=== PATIENT | male | born 1950 | race Caucasian/White ===

== ENCOUNTER 2018-06-06 07:57 | Outpatient (CLI) | payer MEDICARE, BC, SELFPAY ==
[2018-06-06 09:30] LABS: ALT 148 U/L (12-78); AST 58 U/L (15-37); Alkaline Phosphatase 58 U/L (46-116); Bilirubin, Direct 0.16 mg/dL (0.00-0.20); Bilirubin, Total 0.6 mg/dL (0.2-1.0); Total Protein 7.2 g/dL (6.4-8.2)
[2018-06-07 13:38] LABS: Tacrolimus 5.2 ng/ml
== END 2018-06-06 08:17 ==
PROVIDERS: PCP Emergency Medicine; Visit Provider Internal Medicine
DX: Z94.4 Liver transplant status (principal)
CPT/HCPCS: 36415; 80076; 80197

== ENCOUNTER 2018-06-20 08:00 | Outpatient (CLI) | payer MEDICARE, BC, SELFPAY ==
[2018-06-20 10:14] LABS: ALT 145 U/L (12-78); AST 56 U/L (15-37); Albumin 4.4 g/dL (3.4-5.0); Alkaline Phosphatase 68 U/L (46-116); Bilirubin, Direct 0.12 mg/dL (0.00-0.20); Bilirubin, Total 0.6 mg/dL (0.2-1.0); Total Protein 7.6 g/dL (6.4-8.2)
[2018-06-21 11:59] LABS: Tacrolimus 5.3 ng/ml
== END 2018-06-20 08:20 ==
PROVIDERS: PCP Emergency Medicine; Visit Provider Internal Medicine
DX: Z94.4 Liver transplant status (principal); K74.69 Other cirrhosis of liver
CPT/HCPCS: 36415; 80076; 80197

== ENCOUNTER 2018-07-04 01:26 | Outpatient (CLI) | payer MEDICARE, BC, SELFPAY ==
[2018-07-04 08:39] LABS: ALT 110 U/L (12-78); AST 43 U/L (15-37); Albumin 4.1 g/dL (3.4-5.0); Alkaline Phosphatase 61 U/L (46-116); Bilirubin, Direct 0.16 mg/dL (0.00-0.20); Bilirubin, Total 0.7 mg/dL (0.2-1.0); Total Protein 7.6 g/dL (6.4-8.2)
[2018-07-05 13:25] LABS: Tacrolimus 5.2 ng/ml
== END 2018-07-04 01:46 ==
PROVIDERS: PCP Emergency Medicine; Visit Provider Internal Medicine
DX: Z94.4 Liver transplant status (principal); Z79.899 Other long term (current) drug therapy; Z51.81 Encounter for therapeutic drug level monitoring; I10 Essential (primary) hypertension
CPT/HCPCS: 36415; 80076; 80197

== ENCOUNTER 2018-08-01 01:53 | Outpatient (CLI) | payer MEDICARE, BC, SELFPAY ==
[2018-08-01 09:09] LABS: ALT 121 U/L (12-78); AST 47 U/L (15-37); Albumin 4.2 g/dL (3.4-5.0); Alkaline Phosphatase 57 U/L (46-116); Bilirubin, Direct 0.13 mg/dL (0.00-0.20); Bilirubin, Total 0.6 mg/dL (0.2-1.0); Total Protein 7.5 g/dL (6.4-8.2)
[2018-08-02 13:38] LABS: Tacrolimus 5.4 ng/ml
== END 2018-08-01 02:13 ==
PROVIDERS: PCP Emergency Medicine; Visit Provider Internal Medicine
DX: Z94.4 Liver transplant status (principal)
CPT/HCPCS: 36415; 80076; 80197

== ENCOUNTER 2018-09-30 12:16 | Emergency (ER) | payer MEDICARE, BC, SELFPAY ==
[2018-09-30 12:22] VITALS: BP 158/77; PULSE 80; RESP 16; TEMP 36.8; O2SAT 97
--- NOTE | 2018-09-30 12:29 | DI.CT_ITS ---
SYMPTOMS/DIAGNOSIS: RT SIDED ABDOMINAL PAIN, PRIOR APPENDECTOMY AND LIVER TRANSPLANT CT SCAN OF THE ABDOMEN AND PELVIS: CT scan of the abdomen and pelvis was performed following the uneventful administration of intravenous contrast material. There are no priors for comparison. There do appear to be dependent changes in the lungs. This may represent atelectasis or pulmonary fibrosis. The liver is normal in size. No hepatic mass is seen. There is pneumobilia present in the dependent portion of the liver. There is a tiny focus of air seen in the common hepatic duct. The portal, superior mesenteric and splenic veins are patent. The pancreas and peripancreatic soft tissues are unremarkable as are the spleen and adrenal glands. The kidneys show normal and symmetric enhancement. No evidence of a solid renal mass or obstruction is appreciated. The urinary bladder is intact. The reproductive organs are unremarkable. The abdominal aorta is of normal caliber. No significant abdominal or pelvic adenopathy, ascites pneumoperitoneum is present. There is diverticulosis seen in the colon but no evidence of acute diverticulitis. The bowel shows no evidence of obstruction or inflammation. The appendix is not visualized. Note is made of bilateral fat containing inguinal hernias. Degenerative changes are seen in the spine. The patient is status post cholecystectomy. IMPRESSION: 1. Pneumobilia of uncertain clinical significance. Please correlate with prior examinations if available. 2. Colonic diverticulosis but no evidence of acute diverticulitis. The findings were discussed with Dr. Godinez of the emergency department on the date of the examination.
[2018-09-30] MEDS: HYDROmorphone 2 MG/ML VIAL 0.5 MG IVP (12:39)
--- NOTE | 2018-09-30 12:39 | W.ED.GENAD ---
Discharge Plan Disposition Patient Disposition: HOME Condition: Stable Discharge Details Chief Complaint: Abd Prob Clinical Impression: Abdominal pain Primary Care Provider: Dylan White ED Provider: Madhu Godinez Home Meds and New Rx's Prescriptions: Continued cholecalciferol (vitamin D3) 2,000 unit capsule 4,000 unit PO DAILY RF: 0 sildenafil [Viagra] 100 mg tablet 25 - 100 mg PO ONCE Qty: 7 RF: 4 pravastatin 40 mg tablet 40 mg PO DAILY RF: 0 cetirizine [Zyrtec] 10 MG tablet 10 mg PO DAILY PRNRF: 0 acetaminophen [Acetaminophen Extra Strength] 500 MG tablet 2 tab PO BID PRN RF: 0 mycophenolate mofetil 250 MG capsule 2 tab PO BID RF: 0 aspirin [Aspir-81] 81 MG tablet,delayed release (DR/EC) 81 mg PO DAILY RF: 0 magnesium oxide 400 MG tablet 2 tab PO TID RF: 0 tacrolimus [Prograf] 1 MG capsule 1 mg PO BID RF: 0 omeprazole 20 MG capsule,delayed release(DR/EC) 20 mg PO DAILY RF: 0 scdtxqyc-rxun-wbiyme-hyalur ac 1 EACH capsule 1 ea PO BID RF: 0 zinc sulfate [Zinc-220] 220 MG capsule 220 mg PO DAILY RF: 0 multivitamin [Daily Multi-Vitamin] 1 EACH tablet 1 ea PO RF: 0 Vitron-C 1 EACH tablet,delayed release (DR/EC) 1 ea PO DAILY RF: 0 cod liver oil 1 EACH capsule 1 ea PO DAILY RF: 0 flaxseed oil 1,000 MG capsule 2,400 mg PO BID RF: 0 amlodipine 10 MG tablet 10 mg PO DAILY Qty: 90 RF: 3 levothyroxine [Synthroid] 125 mcg tablet 250 mcg PO DAILY Qty: 180 RF: 3 Discharge Instructions Instructions: Abdominal Pain (ED) Additional Instructions: Your blood work and cat scan did not show any significant emergent findings. This could be from constipation Do not drive from here, someone should pick yo up to drive you home follow up with your primary care provider within a week as scheduled if you feel your pain is significantly worsening, or you have persistent vomit or fevers return to the emergency department for evaluation Medical Decision Making 67 yo male with hx of liver transplant 6 years ago, prior appendectomy, who comes in with right sided abdominal pain since Wednesday. Denies vomit, fevers, changes in bowel habits, no dysuria, no testicle pain or tenderness or swelling. On exam he has tenderness in ruq and rlq without guarding and no distention, neg menjivar's sign. Multiple potential etiologies of his pain, will obtain lab work and ct to further evaluate. Has no chest pain and reporducible pain in abdomen so doubt acs. pt feeling significantly better, labs are unremarkable, slight increase in bilirubin otherwise no changes from baseline. CT per Dr. Bradley shows intrahepatic air, no olds to compare to, otherwise unremarkable. I [place] [facility] [place] has had this air chronically per the report. He has no tenderness other than some mild rlq pain on exam without guarding. He does state he has been more constipated recently so this could be the cause of his pain. He feels well enough for d/c, advised f/u with pcp in a week and return if worsening Differential Diagnosis muscle strain, hematoma, sbo, kidney stone Imaging Data Radiologic Study: Attestation: I personally reviewed and interpreted this imaging study as follows: Imaging: CT Scan Radiologist's impression: per Dr. bradley has intrahepatic air, otherwise nothing acute Lab Data Lab results reviewed: Yes I reviewed the patient's lab results. HPI General Mode of arrival: ambulatory. Date/Time Provider Initiated Documentation: 09/30/18 12:18. Limitations to Documentation: no limitations. Information obtained by: patient. History of Present Illness 67 year old M presents to the emergency department with the chief complaint of abdominal pain, described as moderate, with intensity rated at 5. Quality is described as stabbing and aching, and is localized to the abdomen. Patient reports no radiation. Patient started experiencing this day(s) (5) and it has been constant. Other factors that worsen symptoms (movement) . Patient notes no other symptoms.. Patient did receive the following treatments prior to arrival, none Related Data Home Medications Medication Instructions Recorded Confirmed acetaminophen [Acetaminophen Extra 2 tab PO BID PRN tab-cap 01/31/13 09/30/18 Strength] cetirizine [Zyrtec] 10 mg PO DAILY PRN tab 01/31/13 09/30/18 aspirin [Aspir-81] 81 mg PO DAILY tab-cap 02/07/13 09/30/18 magnesium oxide 2 tab PO TID 02/07/13 09/30/18 mycophenolate mofetil 2 tab PO BID 02/07/13 09/30/18 tacrolimus [Prograf] 1 mg PO BID 02/07/13 09/30/18 omeprazole 20 mg PO DAILY tab-cap 06/07/13 09/30/18 hdxqxdkl-iwgk-nwwqcy-hyalur ac 1 ea PO BID 02/07/14 09/30/18 zinc sulfate [Zinc-220] 220 mg PO DAILY 02/07/14 09/30/18 multivitamin [Daily Multi-Vitamin] 1 ea PO 07/31/14 09/30/18 Vitron-C 1 ea PO DAILY 05/08/16 09/30/18 cod liver oil 1 ea PO DAILY 11/10/16 09/30/18 flaxseed oil 2,400 mg PO BID 11/10/16 09/30/18 amlodipine 10 mg PO DAILY #90 tab-cap 03/11/18 09/30/18 levothyroxine 125 mcg tablet 250 mcg PO DAILY #180 tab-cap 05/06/18 09/30/18 cholecalciferol (vitamin D3) 2,000 4,000 unit PO DAILY cap 05/18/18 09/30/18 unit capsule sildenafil 100 mg tablet 25 - 100 mg PO ONCE #7 tab 05/18/18 09/30/18 pravastatin 40 mg tablet 40 mg PO DAILY 09/30/18 09/30/18 Previous Rx's Medication Instructions Recorded amlodipine 10 mg PO DAILY #90 tab-cap 03/11/18 levothyroxine 125 mcg tablet 250 mcg PO DAILY #180 tab-cap 05/06/18 sildenafil 100 mg tablet 25 - 100 mg PO ONCE #7 tab 05/18/18 Allergies Allergy/AdvReac Type Severity Reaction Status Date / Time codeine Allergy Severe THROAT Verified 09/30/18 11:38 SWELLED SHUT General Stated Complaint: Abd Prob MARK: 3 Review of Systems Review of Systems All systems reviewed & are unremarkable except as noted in HPI and below Constitutional Denies chills, Denies fever(s) and Denies weakness Eyes Denies loss of vision ENT Denies change in voice Cardiovascular Denies chest pain and Denies dyspnea Respiratory Denies cough and Denies dyspnea Gastrointestinal Denies vomiting Genitourinary Denies dysuria Musculoskeletal Denies joint swelling Integumentary/Breasts Denies rash Neurologic Denies loss of vision and Denies weakness Psychiatric Denies depression ON LICENSE OF [facility] Medical History Sciatica (Acute) Pulmonary scarring (Acute 01/08/17) Obstructive sleep apnea syndrome (Acute) Obesity (Acute) Impaired fasting glucose (Acute) Hypothyroidism (Acute) Gastroesophageal reflux disease (Acute) Diverticulosis of colon without diverticulitis (Acute) Cirrhosis of liver (Acute) Chest pain (Acute) Bleeding esophageal varices (Acute) Surgical History Status post total knee replacement (Acute 01/08/16) Liver transplant status (Acute) Appendectomy (~1991) Colonoscopy - MAC LIVER TRANSPLANT (~2012) Family History Mother Neoplasm Father Aneurysm Social History Smoking and Tabacco status: Never Exam Const General: no acute distress Orientation: alert [facility] Head: normal to inspection Ears: external ears normal General nose exam: external nose normal Mouth: moist mucous membranes Eyes General: appearance normal, both eyes and all related structures Neck Neck: normal visual inspection Resp Effort & Inspection: normal respiratory effort and able to speak in complete sentences Cardio Rate: regular rate GI Palpation: soft Skin General skin exam: no rashes or lesions noted Neuro General: alert and oriented x3 Extrem General: normal to inspection Psych Mental Status: mental status grossly normal Course Vital Signs Temperature 36.8 C 09/30/18 12:22 Pulse 80 09/30/18 12:22 Respiratory Rate 16 09/30/18 12:22 Blood Pressure 158/77 H 09/30/18 12:22 Pulse Oximetry 97 09/30/18 12:22 Temperature 36.8 C 09/30/18 12:22 Temperature Source Skin 09/30/18 12:22 Pulse 80 09/30/18 12:22 Respiratory Rate 16 09/30/18 12:22 Respiratory Effort Non-Labored 09/30/18 12:31 Blood Pressure 158/77 H 09/30/18 12:22 Blood Pressure Position Sitting 09/30/18 12:22 Pulse Oximetry 97 09/30/18 12:22 Oxygen Delivery Method Room Air 09/30/18 12:22 Oxygen Flow Rate 0 09/30/18 12:22 Pain Level 10 09/30/18 12:22
--- NOTE | 2018-09-30 12:42 | ED.GENADUL_ITS ---
Discharge Plan Disposition Patient Disposition: HOME Condition: Stable Discharge Details Chief Complaint: Abd Prob Clinical Impression: Abdominal pain Primary Care Provider: Dylan Whtie ED Provider: Madhu Godinez Home Meds and New Rx's Prescriptions: Continued cholecalciferol (vitamin D3) 2,000 unit capsule 4,000 unit PO DAILY RF: 0 sildenafil [Viagra] 100 mg tablet 25 - 100 mg PO ONCE Qty: 7 RF: 4 pravastatin 40 mg tablet 40 mg PO DAILY RF: 0 cetirizine [Zyrtec] 10 MG tablet 10 mg PO DAILY PRNRF: 0 acetaminophen [Acetaminophen Extra Strength] 500 MG tablet 2 tab PO BID PRN RF: 0 mycophenolate mofetil 250 MG capsule 2 tab PO BID RF: 0 aspirin [Aspir-81] 81 MG tablet,delayed release (DR/EC) 81 mg PO DAILY RF: 0 magnesium oxide 400 MG tablet 2 tab PO TID RF: 0 tacrolimus [Prograf] 1 MG capsule 1 mg PO BID RF: 0 omeprazole 20 MG capsule,delayed release(DR/EC) 20 mg PO DAILY RF: 0 rqdxyhts-rius-jcowap-hyalur ac 1 EACH capsule 1 ea PO BID RF: 0 zinc sulfate [Zinc-220] 220 MG capsule 220 mg PO DAILY RF: 0 multivitamin [Daily Multi-Vitamin] 1 EACH tablet 1 ea PO RF: 0 Vitron-C 1 EACH tablet,delayed release (DR/EC) 1 ea PO DAILY RF: 0 cod liver oil 1 EACH capsule 1 ea PO DAILY RF: 0 flaxseed oil 1,000 MG capsule 2,400 mg PO BID RF: 0 amlodipine 10 MG tablet 10 mg PO DAILY Qty: 90 RF: 3 levothyroxine [Synthroid] 125 mcg tablet 250 mcg PO DAILY Qty: 180 RF: 3 Discharge Instructions Instructions: Abdominal Pain (ED) Additional Instructions: Your blood work and cat scan did not show any significant emergent findings. This could be from constipation Do not drive from here, someone should pick yo up to drive you home follow up with your primary care provider within a week as scheduled if you feel your pain is significantly worsening, or you have persistent vomit or fevers return to the emergency department for evaluation Medical Decision Making 67 yo male with hx of liver transplant 6 years ago, prior appendectomy, who comes in with right sided abdominal pain since Wednesday. Denies vomit, fevers, changes in bowel habits, no dysuria, no testicle pain or tenderness or swelling. On exam he has tenderness in ruq and rlq without guarding and no distention, neg menjivar's sign. Multiple potential etiologies of his pain, will obtain lab work and ct to further evaluate. Has no chest pain and reporducible pain in abdomen so doubt acs. pt feeling significantly better, labs are unremarkable, slight increase in bilirubin otherwise no changes from baseline. CT per Dr. Bradley shows intrahepatic air, no olds to compare to, otherwise unremarkable. [place] [facility] [place] had this air chronically per the report. He has no tenderness other than some mild rlq pain on exam without guarding. He does state he has been more constipated recently so this could be the cause of his pain. He feels well enough for d/c, advised f/u with pcp in a week and return if worsening Differential Diagnosis muscle strain, hematoma, sbo, kidney stone Imaging Data Radiologic Study: Attestation: I personally reviewed and interpreted this imaging study as follows: Imaging: CT Scan Radiologist's impression: per Dr. bradley has intrahepatic air, otherwise nothing acute Lab Data Lab results reviewed: Yes I reviewed the patient's lab results. HPI General Mode of arrival: ambulatory . Date/Time Provider Initiated Documentation: 09/30/18 12:18 . Limitations to Documentation: no limitations . Information obtained by: patient . History of Present Illness 67 year old M presents to the emergency department with the chief complaint of abdominal pain, described as moderate, with intensity rated at 5. Quality is described as stabbing and aching, and is localized to the abdomen. Patient reports no radiation. Patient started experiencing this day(s) (5) and it has been constant. Other factors that worsen symptoms (movement) . Patient notes no other symptoms.. Patient did receive the following treatments prior to arrival, none Related Data Home Medications Medication Instructions Recorded Confirmed acetaminophen [Acetaminophen Extra 2 tab PO BID PRN tab-cap 01/31/13 09/30/18 Strength] cetirizine [Zyrtec] 10 mg PO DAILY PRN tab 01/31/13 09/30/18 aspirin [Aspir-81] 81 mg PO DAILY tab-cap 02/07/13 09/30/18 magnesium oxide 2 tab PO TID 02/07/13 09/30/18 mycophenolate mofetil 2 tab PO BID 02/07/13 09/30/18 tacrolimus [Prograf] 1 mg PO BID 02/07/13 09/30/18 omeprazole 20 mg PO DAILY tab-cap 06/07/13 09/30/18 bwuzxiva-bxqe-lifnjb-hyalur ac 1 ea PO BID 02/07/14 09/30/18 zinc sulfate [Zinc-220] 220 mg PO DAILY 02/07/14 09/30/18 multivitamin [Daily Multi-Vitamin] 1 ea PO 07/31/14 09/30/18 Vitron-C 1 ea PO DAILY 05/08/16 09/30/18 cod liver oil 1 ea PO DAILY 11/10/16 09/30/18 flaxseed oil 2,400 mg PO BID 11/10/16 09/30/18 amlodipine 10 mg PO DAILY #90 tab-cap 03/11/18 09/30/18 levothyroxine 125 mcg tablet 250 mcg PO DAILY #180 tab-cap 05/06/18 09/30/18 cholecalciferol (vitamin D3) 2,000 4,000 unit PO DAILY cap 05/18/18 09/30/18 unit capsule sildenafil 100 mg tablet 25 - 100 mg PO ONCE #7 tab 05/18/18 09/30/18 pravastatin 40 mg tablet 40 mg PO DAILY 09/30/18 09/30/18 Previous Rx's Medication Instructions Recorded amlodipine 10 mg PO DAILY #90 tab-cap 03/11/18 levothyroxine 125 mcg tablet 250 mcg PO DAILY #180 tab-cap 05/06/18 sildenafil 100 mg tablet 25 - 100 mg PO ONCE #7 tab 05/18/18 Allergies Allergy/AdvReac Type Severity Reaction Status Date / Time codeine Allergy Severe THROAT Verified 09/30/18 11:38 SWELLED SHUT General Stated Complaint: Abd Prob MARK: 3 Review of Systems Review of Systems All systems reviewed & are unremarkable except as noted in HPI and below Constitutional Denies chills, Denies fever(s) and Denies weakness Eyes Denies loss of vision ENT Denies change in voice Cardiovascular Denies chest pain and Denies dyspnea Respiratory Denies cough and Denies dyspnea Gastrointestinal Denies vomiting Genitourinary Denies dysuria Musculoskeletal Denies joint swelling Integumentary/Breasts Denies rash Neurologic Denies loss of vision and Denies weakness Psychiatric Denies depression [facility] Medical History Sciatica (Acute) Pulmonary scarring (Acute 01/08/17) Obstructive sleep apnea syndrome (Acute) Obesity (Acute) Impaired fasting glucose (Acute) Hypothyroidism (Acute) Gastroesophageal reflux disease (Acute) Diverticulosis of colon without diverticulitis (Acute) Cirrhosis of liver (Acute) Chest pain (Acute) Bleeding esophageal varices (Acute) Surgical History Status post total knee replacement (Acute 01/08/16) Liver transplant status (Acute) Appendectomy (~1991) Colonoscopy - MAC LIVER TRANSPLANT (~2012) Family History Mother Neoplasm Father Aneurysm Social History Smoking and Tabacco status: Never Exam Const General: no acute distress Orientation: alert [facility] Head: normal to inspection Ears: external ears normal General nose exam: external nose normal Mouth: moist mucous membranes Eyes General: appearance normal, both eyes and all related structures Neck Neck: normal visual inspection Resp Effort & Inspection: normal respiratory effort and able to speak in complete sentences Cardio Rate: regular rate GI Palpation: soft Skin General skin exam: no rashes or lesions noted Neuro General: alert and oriented x3 Extrem General: normal to inspection Psych Mental Status: mental status grossly normal Course Vital Signs Temperature 36.8 C 09/30/18 12:22 Pulse 80 09/30/18 12:22 Respiratory Rate 16 09/30/18 12:22 Blood Pressure 158/77 H 09/30/18 12:22 Pulse Oximetry 97 09/30/18 12:22 Temperature 36.8 C 09/30/18 12:22 Temperature Source Skin 09/30/18 12:22 Pulse 80 09/30/18 12:22 Respiratory Rate 16 09/30/18 12:22 Respiratory Effort Non-Labored 09/30/18 12:31 Blood Pressure 158/77 H 09/30/18 12:22 Blood Pressure Position Sitting 09/30/18 12:22 Pulse Oximetry 97 09/30/18 12:22 Oxygen Delivery Method Room Air 09/30/18 12:22 Oxygen Flow Rate 0 09/30/18 12:22 Pain Level 10 09/30/18 12:22
[2018-09-30 12:47] LABS: Lactate-non-spesis 1.1 mmol/l (0.6-1.4)
[2018-09-30 12:51] LABS: Abs Immature Grans 0.02 k/cumm (0.0-0.09); Absolute Basophil Count 0.03 k/cumm (0.0-0.2); Absolute Eosinophil Count 0.13 k/cumm (0.0-0.7); Absolute Lymphocyte Count 1.65 k/cumm (1.2-3.4); Absolute Monocyte Count 0.68 k/cumm (0.11-0.7); Absolute Neutrophil Count 4.25 k/cumm (1.2-6.7); Basophils % 0.4; Eosinophils % 1.9; HGB 15.4 g/dL (13.5-17.5); Immature Grans % 0.3; Lymphocytes % 24.4; Mean Corp. HGB Concentration 34.2 g/dL (32.0-36.0); Mean Corpuscular Hemoglobin 28.1 pg (27.0-33.0); Mean Corpuscular Volume 82.1 fL (80-95); Mean Platelet Volume 10.1 fL (8.0-11.0); Monocytes % 10.1; Neutrophils % 62.9; Platelet Count 144 x1000/uL (130-400); RBC 5.48 m/cumm (4.50-6.00); RBC Distribution Width 13.9 % (11.8-14.1); White Blood Cell Count 6.76 k/cumm (4.4-10.8)
[2018-09-30] MEDS: Omnipaque 350 MG/ML 100 ML BTL IJ (12:59)
[2018-09-30 13:01] LABS: PTT Activated 24.8 sec (21.0-31.4); Prothrombin Time 10.2 sec (9.3-11.0)
[2018-09-30 13:15] LABS: ALT 123 U/L (12-78); AST 48 U/L (15-37); Albumin 4.5 g/dL (3.4-5.0); Alkaline Phosphatase 68 U/L (46-116); Anion Gap 12.6 mmol/L (3-11); BUN 16 mg/dL (7-18); Bilirubin, Direct 0.24 mg/dL (0.00-0.20); Bilirubin, Total 0.9 mg/dL (0.2-1.0); CO2 26.4 mmol/L (21.0-32.0); CREATININE 1.09 mg/dL (0.70-1.30); Calcium 8.9 mg/dL (8.5-10.1); Chloride 101 mmol/L (98-107); Glucose 121 mg/dL (70-100); Lipase 62 U/L (73-393); Potassium 3.8 mmol/L (3.5-5.1); Sodium 140 mmol/L (136-145); Total Protein 8.8 g/dL (6.4-8.2)
[2018-09-30 13:43] VITALS: BP 136/66; PULSE 71; RESP 15; TEMP 37; O2SAT 98
[2018-09-30 13:50] VITALS: BP 136/66; PULSE 71; RESP 15; TEMP 37; O2SAT 98
== END 2018-09-30 13:51 | disposition home or self-care (01) ==
PROVIDERS: Emergency Provider Emergency Medicine; PCP Emergency Medicine
DX: R10.11 Right upper quadrant pain (principal); R10.31 Right lower quadrant pain; Z94.4 Liver transplant status
CPT/HCPCS: 36415; 80053; 80076; 83690; 96374; 99285; 74177; 83605; 83735; 85025; 85610; 85730; 99284; J3490

== ENCOUNTER 2019-07-24 00:16 | Outpatient (CLI) | payer MEDICARE, BC, SELFPAY ==
[2019-07-24 09:35] LABS: ALT 64 U/L (16-63); AST 29 U/L (15-37); Albumin 4.2 g/dL (3.4-5.0); Alkaline Phosphatase 52 U/L (46-116); Anion Gap 10.6 mmol/L (3-11); BUN 19 mg/dL (7-18); Bilirubin, Total 0.6 mg/dL (0.2-1.0); CO2 27.4 mmol/L (21.0-32.0); CREATININE 1.18 mg/dL (0.70-1.30); Calcium 8.5 mg/dL (8.5-10.1); Chloride 105 mmol/L (98-107); Glucose 120 mg/dL (74-106); Potassium 3.9 mmol/L (3.5-5.1); Sodium 143 mmol/L (136-145); Total Protein 7.3 g/dL (6.4-8.2)
[2019-07-24 10:13] LABS: Bilirubin, Direct 0.14 mg/dL (0.00-0.20)
[2019-07-25 15:28] LABS: Tacrolimus 3.1 ng/mL (See Note)
== END 2019-07-24 00:36 ==
PROVIDERS: PCP Emergency Medicine; Visit Provider Internal Medicine
DX: Z94.4 Liver transplant status (principal); Z51.81 Encounter for therapeutic drug level monitoring
CPT/HCPCS: 36415; 80053; 80076; 80197

== ENCOUNTER 2019-08-07 01:27 | Outpatient (CLI) | payer MEDICARE, BC, SELFPAY ==
[2019-08-07 08:36] LABS: ALT 62 U/L (16-63); AST 31 U/L (15-37); Albumin 4.4 g/dL (3.4-5.0); Alkaline Phosphatase 52 U/L (46-116); Anion Gap 7.9 mmol/L (3-11); BUN 18 mg/dL (7-18); Bilirubin, Direct 0.19 mg/dL (0.00-0.20); Bilirubin, Total 0.8 mg/dL (0.2-1.0); CO2 30.1 mmol/L (21.0-32.0); CREATININE 1.12 mg/dL (0.70-1.30); Calcium 8.9 mg/dL (8.5-10.1); Chloride 104 mmol/L (98-107); Glucose 112 mg/dL (74-106); Sodium 142 mmol/L (136-145); Total Protein 7.6 g/dL (6.4-8.2)
[2019-08-08 13:23] LABS: Tacrolimus 2.7 ng/mL (See Note)
== END 2019-08-07 01:47 ==
PROVIDERS: PCP Emergency Medicine; Visit Provider Internal Medicine
DX: Z94.4 Liver transplant status (principal); Z51.81 Encounter for therapeutic drug level monitoring
CPT/HCPCS: 36415; 80053; 80076; 80197

== ENCOUNTER 2019-09-04 01:13 | Outpatient (CLI) | payer MEDICARE, BC, SELFPAY ==
[2019-09-04 08:08] LABS: Abs Immature Grans 0.02 k/cumm (0.0-0.09); Absolute Basophil Count 0.05 k/cumm (0.0-0.2); Absolute Eosinophil Count 0.19 k/cumm (0.0-0.7); Absolute Lymphocyte Count 2.03 k/cumm (1.2-3.4); Absolute Monocyte Count 0.59 k/cumm (0.11-0.7); Absolute Neutrophil Count 3.05 k/cumm (1.2-6.7); Basophils % 0.8; Eosinophils % 3.2; HCT 44.9 % (40.0-50.0); HGB 15.4 g/dL (13.5-17.5); Immature Grans % 0.3 %; Lymphocytes % 34.2; Mean Corp. HGB Concentration 34.3 g/dL (32.0-36.0); Mean Corpuscular Hemoglobin 28.5 pg (27.0-33.0); Mean Corpuscular Volume 83.1 fL (80-95); Monocytes % 9.9; Neutrophils % 51.6; Platelet Count 131 x1000/uL (130-400); RBC Distribution Width 14.1 % (11.8-14.1); White Blood Cell Count 5.93 k/cumm (4.4-10.8)
[2019-09-04 09:31] LABS: ALT 66 U/L (16-63); AST 36 U/L (15-37); Albumin 4.3 g/dL (3.4-5.0); Alkaline Phosphatase 55 U/L (46-116); Anion Gap 10.8 mmol/L (3-11); BUN 16 mg/dL (7-18); Bilirubin, Direct 0.21 mg/dL (0.00-0.20); Bilirubin, Total 0.9 mg/dL (0.2-1.0); CO2 27.2 mmol/L (21.0-32.0); CREATININE 1.06 mg/dL (0.70-1.30); Calcium 8.8 mg/dL (8.5-10.1); Chloride 104 mmol/L (98-107); Glucose 100 mg/dL (74-106); Magnesium 2.1 mg/dL (1.8-2.4); PHOSPHORUS 3.2 mg/dL (2.6-4.7); Sodium 142 mmol/L (136-145); Total Protein 7.4 g/dL (6.4-8.2)
[2019-09-05 13:30] LABS: Tacrolimus 4.3 ng/mL (See Note)
== END 2019-09-04 01:33 ==
PROVIDERS: PCP Emergency Medicine; Visit Provider Internal Medicine
DX: Z94.4 Liver transplant status (principal); Z79.899 Other long term (current) drug therapy; Z51.81 Encounter for therapeutic drug level monitoring
CPT/HCPCS: 36415; 80053; 80197; 82248; 83735; 84100; 85025

== ENCOUNTER 2019-09-18 02:33 | Outpatient (CLI) | payer MEDICARE, BC, SELFPAY ==
[2019-09-18 08:28] LABS: Abs Immature Grans 0.02 k/cumm (0.0-0.09); Absolute Basophil Count 0.03 k/cumm (0.0-0.2); Absolute Eosinophil Count 0.22 k/cumm (0.0-0.7); Absolute Lymphocyte Count 2.16 k/cumm (1.2-3.4); Absolute Monocyte Count 0.61 k/cumm (0.11-0.7); Absolute Neutrophil Count 3.56 k/cumm (1.2-6.7); Basophils % 0.5; Eosinophils % 3.3; HCT 42.8 % (40.0-50.0); HGB 14.7 g/dL (13.5-17.5); Immature Grans % 0.3 %; Lymphocytes % 32.7; Mean Corp. HGB Concentration 34.3 g/dL (32.0-36.0); Mean Corpuscular Hemoglobin 28.5 pg (27.0-33.0); Mean Corpuscular Volume 82.9 fL (80-95); Mean Platelet Volume 10.1 fL (8.0-11.0); Monocytes % 9.2; Platelet Count 129 x1000/uL (130-400); RBC 5.16 m/cumm (4.50-6.00); RBC Distribution Width 13.9 % (11.8-14.1)
[2019-09-18 09:31] LABS: ALT 71 U/L (16-63); AST 34 U/L (15-37); Albumin 4.3 g/dL (3.4-5.0); Alkaline Phosphatase 54 U/L (46-116); Anion Gap 10.2 mmol/L (3-11); BUN 23 mg/dL (7-18); Bilirubin, Direct 0.19 mg/dL (0.00-0.20); Bilirubin, Total 0.7 mg/dL (0.2-1.0); CO2 28.8 mmol/L (21.0-32.0); CREATININE 1.25 mg/dL (0.70-1.30); Calcium 8.6 mg/dL (8.5-10.1); Chloride 103 mmol/L (98-107); Glucose 111 mg/dL (74-106); Magnesium 1.8 mg/dL (1.8-2.4); PHOSPHORUS 3.4 mg/dL (2.6-4.7); Potassium 4.3 mmol/L (3.5-5.1); Sodium 142 mmol/L (136-145); Total Protein 7.4 g/dL (6.4-8.2)
[2019-09-19 12:24] LABS: Tacrolimus 4.4 ng/mL (See Note)
== END 2019-09-18 02:53 ==
PROVIDERS: PCP Emergency Medicine; Visit Provider Internal Medicine
DX: Z94.4 Liver transplant status (principal); Z79.899 Other long term (current) drug therapy
CPT/HCPCS: 36415; 80053; 80197; 82248; 83735; 84100; 85025

== ENCOUNTER 2019-09-25 01:56 | Outpatient (CLI) | payer MEDICARE, BC, SELFPAY ==
[2019-09-25 08:16] LABS: Abs Immature Grans 0.02 k/cumm (0.0-0.09); Absolute Basophil Count 0.02 k/cumm (0.0-0.2); Absolute Eosinophil Count 0.25 k/cumm (0.0-0.7); Absolute Lymphocyte Count 2.07 k/cumm (1.2-3.4); Absolute Monocyte Count 0.52 k/cumm (0.11-0.7); Absolute Neutrophil Count 2.66 k/cumm (1.2-6.7); Basophils % 0.4; Eosinophils % 4.5; HCT 42.4 % (40.0-50.0); HGB 14.5 g/dL (13.5-17.5); Immature Grans % 0.4 %; Lymphocytes % 37.4; Mean Corp. HGB Concentration 34.2 g/dL (32.0-36.0); Mean Corpuscular Hemoglobin 28.8 pg (27.0-33.0); Mean Corpuscular Volume 84.1 fL (80-95); Mean Platelet Volume 10.3 fL (8.0-11.0); Monocytes % 9.4; Neutrophils % 47.9; Platelet Count 125 x1000/uL (130-400); RBC 5.04 m/cumm (4.50-6.00); RBC Distribution Width 14.2 % (11.8-14.1); White Blood Cell Count 5.54 k/cumm (4.4-10.8)
[2019-09-25 09:27] LABS: ALT 80 U/L (16-63); AST 39 U/L (15-37); Albumin 4.3 g/dL (3.4-5.0); Alkaline Phosphatase 52 U/L (46-116); Anion Gap 9.7 mmol/L (3-11); BUN 22 mg/dL (7-18); Bilirubin, Direct 0.19 mg/dL (0.00-0.20); Bilirubin, Total 0.8 mg/dL (0.2-1.0); CO2 27.3 mmol/L (21.0-32.0); CREATININE 1.18 mg/dL (0.70-1.30); Calcium 8.5 mg/dL (8.5-10.1); Chloride 105 mmol/L (98-107); Glucose 106 mg/dL (74-106); Magnesium 1.9 mg/dL (1.8-2.4); PHOSPHORUS 3.3 mg/dL (2.6-4.7); Sodium 142 mmol/L (136-145); Total Protein 7.4 g/dL (6.4-8.2)
[2019-09-26 13:13] LABS: Tacrolimus 4.1 ng/mL (See Note)
== END 2019-09-25 02:16 ==
PROVIDERS: PCP Emergency Medicine; Visit Provider Transplant Surgery
DX: Z94.4 Liver transplant status (principal); Z79.899 Other long term (current) drug therapy
CPT/HCPCS: 36415; 80053; 80197; 82248; 83735; 84100; 85025

== ENCOUNTER 2019-10-02 03:27 | Outpatient (CLI) | payer MEDICARE, BC, SELFPAY ==
[2019-10-02 08:10] LABS: Abs Immature Grans 0.02 k/cumm (0.0-0.09); Absolute Basophil Count 0.04 k/cumm (0.0-0.2); Absolute Eosinophil Count 0.31 k/cumm (0.0-0.7); Absolute Lymphocyte Count 2.59 k/cumm (1.2-3.4); Absolute Monocyte Count 0.58 k/cumm (0.11-0.7); Absolute Neutrophil Count 3.08 k/cumm (1.2-6.7); Basophils % 0.6; Eosinophils % 4.7; HCT 43.6 % (40.0-50.0); HGB 14.9 g/dL (13.5-17.5); Immature Grans % 0.3 %; Lymphocytes % 39.1; Mean Corp. HGB Concentration 34.2 g/dL (32.0-36.0); Mean Corpuscular Hemoglobin 28.6 pg (27.0-33.0); Mean Corpuscular Volume 83.7 fL (80-95); Mean Platelet Volume 10.1 fL (8.0-11.0); Monocytes % 8.8; Neutrophils % 46.5; Platelet Count 137 x1000/uL (130-400); RBC 5.21 m/cumm (4.50-6.00); RBC Distribution Width 14.2 % (11.8-14.1); White Blood Cell Count 6.62 k/cumm (4.4-10.8)
[2019-10-02 09:23] LABS: ALT 78 U/L (16-63); AST 36 U/L (15-37); Albumin 4.3 g/dL (3.4-5.0); Alkaline Phosphatase 51 U/L (46-116); Anion Gap 10.4 mmol/L (3-11); BUN 19 mg/dL (7-18); Bilirubin, Direct 0.13 mg/dL (0.00-0.20); Bilirubin, Total 0.6 mg/dL (0.2-1.0); CO2 27.6 mmol/L (21.0-32.0); CREATININE 1.25 mg/dL (0.70-1.30); Calcium 8.5 mg/dL (8.5-10.1); Chloride 104 mmol/L (98-107); Glucose 113 mg/dL (74-106); PHOSPHORUS 3.3 mg/dL (2.6-4.7); Potassium 4.1 mmol/L (3.5-5.1); Sodium 142 mmol/L (136-145); Total Protein 7.4 g/dL (6.4-8.2)
[2019-10-03 12:08] LABS: Tacrolimus 3.4 ng/mL (See Note)
== END 2019-10-02 03:47 ==
PROVIDERS: PCP Emergency Medicine; Visit Provider Transplant Surgery
DX: Z94.4 Liver transplant status (principal); Z79.899 Other long term (current) drug therapy
CPT/HCPCS: 36415; 80053; 80197; 82248; 83735; 84100; 85025

== ENCOUNTER 2019-10-09 01:40 | Outpatient (CLI) | payer MEDICARE, BC, SELFPAY ==
[2019-10-09 08:14] LABS: Abs Immature Grans 0.01 k/cumm (0.0-0.09); Absolute Basophil Count 0.03 k/cumm (0.0-0.2); Absolute Eosinophil Count 0.22 k/cumm (0.0-0.7); Absolute Monocyte Count 0.54 k/cumm (0.11-0.7); Absolute Neutrophil Count 2.94 k/cumm (1.2-6.7); Basophils % 0.5; Eosinophils % 3.8; HCT 42.5 % (40.0-50.0); HGB 14.9 g/dL (13.5-17.5); Immature Grans % 0.2 %; Lymphocytes % 34.8; Mean Corp. HGB Concentration 35.1 g/dL (32.0-36.0); Mean Corpuscular Hemoglobin 29.2 pg (27.0-33.0); Mean Corpuscular Volume 83.2 fL (80-95); Mean Platelet Volume 9.9 fL (8.0-11.0); Monocytes % 9.4; Neutrophils % 51.3; Platelet Count 131 x1000/uL (130-400); RBC 5.11 m/cumm (4.50-6.00); RBC Distribution Width 14.1 % (11.8-14.1); White Blood Cell Count 5.74 k/cumm (4.4-10.8)
[2019-10-09 09:08] LABS: ALT 72 U/L (16-63); AST 36 U/L (15-37); Albumin 4.4 g/dL (3.4-5.0); Alkaline Phosphatase 50 U/L (46-116); Anion Gap 8.4 mmol/L (3-11); BUN 19 mg/dL (7-18); Bilirubin, Total 0.7 mg/dL (0.2-1.0); CO2 28.6 mmol/L (21.0-32.0); CREATININE 1.16 mg/dL (0.70-1.30); Calcium 8.7 mg/dL (8.5-10.1); Chloride 105 mmol/L (98-107); Glucose 111 mg/dL (74-106); Sodium 142 mmol/L (136-145); Total Protein 7.5 g/dL (6.4-8.2)
[2019-10-10 18:04] LABS: Tacrolimus 3.2 ng/mL (See Note)
== END 2019-10-09 02:00 ==
PROVIDERS: PCP Emergency Medicine; Visit Provider Internal Medicine
DX: Z94.4 Liver transplant status (principal)
CPT/HCPCS: 36415; 80053; 80197; 85025

== ENCOUNTER 2019-10-16 02:04 | Outpatient (CLI) | payer MEDICARE, BC, SELFPAY ==
[2019-10-16 08:16] LABS: Abs Immature Grans 0.01 k/cumm (0.0-0.09); Absolute Basophil Count 0.05 k/cumm (0.0-0.2); Absolute Eosinophil Count 0.29 k/cumm (0.0-0.7); Absolute Lymphocyte Count 2.28 k/cumm (1.2-3.4); Absolute Monocyte Count 0.64 k/cumm (0.11-0.7); Absolute Neutrophil Count 3.04 k/cumm (1.2-6.7); Basophils % 0.8; Eosinophils % 4.6; HCT 43.7 % (40.0-50.0); HGB 15.1 g/dL (13.5-17.5); Immature Grans % 0.2 %; Lymphocytes % 36.1; Mean Corp. HGB Concentration 34.6 g/dL (32.0-36.0); Mean Corpuscular Hemoglobin 28.8 pg (27.0-33.0); Mean Corpuscular Volume 83.4 fL (80-95); Mean Platelet Volume 9.9 fL (8.0-11.0); Monocytes % 10.1; Neutrophils % 48.2; Platelet Count 136 x1000/uL (130-400); RBC 5.24 m/cumm (4.50-6.00); White Blood Cell Count 6.31 k/cumm (4.4-10.8)
[2019-10-16 09:19] LABS: ALT 75 U/L (16-63); AST 35 U/L (15-37); Albumin 4.4 g/dL (3.4-5.0); Alkaline Phosphatase 52 U/L (46-116); Anion Gap 12.5 mmol/L (3-11); BUN 22 mg/dL (7-18); Bilirubin, Total 0.9 mg/dL (0.2-1.0); CO2 25.5 mmol/L (21.0-32.0); Calcium 8.4 mg/dL (8.5-10.1); Chloride 104 mmol/L (98-107); Estimated GFR 59.86 (mL/min/1.73m2); Glucose 103 mg/dL (74-106); Magnesium 2.1 mg/dL (1.8-2.4); PHOSPHORUS 3.3 mg/dL (2.6-4.7); Potassium 3.9 mmol/L (3.5-5.1); Sodium 142 mmol/L (136-145); Total Protein 7.5 g/dL (6.4-8.2)
[2019-10-17 13:33] LABS: Tacrolimus 3.6 ng/mL (See Note)
== END 2019-10-16 02:24 ==
PROVIDERS: PCP Emergency Medicine; Visit Provider Internal Medicine
DX: Z94.4 Liver transplant status (principal); Z79.899 Other long term (current) drug therapy
CPT/HCPCS: 36415; 80053; 80197; 82248; 83735; 84100; 85025

== ENCOUNTER 2019-11-20 02:00 | Outpatient (CLI) | payer MEDICARE, BC, SELFPAY ==
[2019-11-20 07:54] LABS: Abs Immature Grans 0.01 k/cumm (0.0-0.09); Absolute Basophil Count 0.02 k/cumm (0.0-0.2); Absolute Eosinophil Count 0.54 k/cumm (0.0-0.7); Absolute Lymphocyte Count 1.92 k/cumm (1.2-3.4); Absolute Monocyte Count 0.62 k/cumm (0.11-0.7); Absolute Neutrophil Count 2.64 k/cumm (1.2-6.7); Basophils % 0.3; Eosinophils % 9.4; HCT 40.4 % (40.0-50.0); HGB 13.9 g/dL (13.5-17.5); Immature Grans % 0.2 %; Lymphocytes % 33.4; Mean Corp. HGB Concentration 34.4 g/dL (32.0-36.0); Mean Corpuscular Hemoglobin 28.8 pg (27.0-33.0); Mean Corpuscular Volume 83.6 fL (80-95); Mean Platelet Volume 9.7 fL (8.0-11.0); Monocytes % 10.8; Neutrophils % 45.9; Platelet Count 137 x1000/uL (130-400); RBC 4.83 m/cumm (4.50-6.00); RBC Distribution Width 13.8 % (11.8-14.1); White Blood Cell Count 5.75 k/cumm (4.4-10.8)
[2019-11-20 08:44] LABS: Bilirubin, Direct 0.23 mg/dL (0.00-0.20); Magnesium 1.9 mg/dL (1.8-2.4); PHOSPHORUS 3.7 mg/dL (2.6-4.7)
[2019-11-20 08:46] LABS: ALT 58 U/L (16-63); AST 32 U/L (15-37); Alkaline Phosphatase 55 U/L (46-116); Anion Gap 10.9 mmol/L (3-11); BUN 17 mg/dL (7-18); Bilirubin, Total 0.9 mg/dL (0.2-1.0); CO2 26.1 mmol/L (21.0-32.0); CREATININE 1.04 mg/dL (0.70-1.30); Calcium 8.5 mg/dL (8.5-10.1); Chloride 104 mmol/L (98-107); Glucose 105 mg/dL (74-106); Potassium 3.7 mmol/L (3.5-5.1); Sodium 141 mmol/L (136-145); Total Protein 7.2 g/dL (6.4-8.2)
[2019-11-21 13:08] LABS: Tacrolimus 3.9 ng/mL (See Note)
== END 2019-11-20 02:20 ==
PROVIDERS: PCP Emergency Medicine; Visit Provider Transplant Surgery
DX: Z94.4 Liver transplant status (principal); Z79.899 Other long term (current) drug therapy; Z51.81 Encounter for therapeutic drug level monitoring
CPT/HCPCS: 36415; 80053; 80197; 82248; 83735; 84100; 85025

== ENCOUNTER 2020-02-19 02:10 | Outpatient (CLI) | payer MEDICARE, BC, SELFPAY ==
[2020-02-19 07:57] LABS: Abs Immature Grans 0.01 k/cumm (0.0-0.09); Absolute Basophil Count 0.02 k/cumm (0.0-0.2); Absolute Eosinophil Count 0.26 k/cumm (0.0-0.7); Absolute Lymphocyte Count 2.61 k/cumm (1.2-3.4); Absolute Monocyte Count 0.56 k/cumm (0.11-0.7); Absolute Neutrophil Count 2.82 k/cumm (1.2-6.7); Basophils % 0.3; Eosinophils % 4.1; HCT 41.8 % (40.0-50.0); HGB 14.3 g/dL (13.5-17.5); Immature Grans % 0.2 %; Lymphocytes % 41.6; Mean Corp. HGB Concentration 34.2 g/dL (32.0-36.0); Mean Corpuscular Hemoglobin 28.3 pg (27.0-33.0); Mean Corpuscular Volume 82.6 fL (80-95); Mean Platelet Volume 10.2 fL (8.0-11.0); Monocytes % 8.9; Neutrophils % 44.9; Platelet Count 134 x1000/uL (130-400); RBC 5.06 m/cumm (4.50-6.00); RBC Distribution Width 14.4 % (11.8-14.1); White Blood Cell Count 6.28 k/cumm (4.4-10.8)
[2020-02-19 08:46] LABS: ALT 69 U/L (16-63); AST 36 U/L (15-37); Albumin 4.3 g/dL (3.4-5.0); Alkaline Phosphatase 51 U/L (46-116); Anion Gap 10.7 mmol/L (3-11); BUN 19 mg/dL (7-18); Bilirubin, Total 0.9 mg/dL (0.2-1.0); CO2 27.3 mmol/L (21.0-32.0); CREATININE 1.12 mg/dL (0.70-1.30); Calcium 8.5 mg/dL (8.5-10.1); Chloride 103 mmol/L (98-107); Glucose 115 mg/dL (74-106); PHOSPHORUS 3.5 mg/dL (2.6-4.7); Potassium 3.9 mmol/L (3.5-5.1); Sodium 141 mmol/L (136-145); Total Protein 7.4 g/dL (6.4-8.2)
[2020-02-19 15:19] LABS: Bilirubin, Direct 0.22 mg/dL (0.00-0.20)
[2020-02-20 12:39] LABS: Tacrolimus 3.7 ng/mL (See Note)
== END 2020-02-19 02:30 ==
PROVIDERS: PCP Emergency Medicine; Visit Provider Transplant Surgery
DX: Z94.4 Liver transplant status (principal); Z79.899 Other long term (current) drug therapy
CPT/HCPCS: 36415; 80053; 80197; 82248; 83735; 84100; 85025

== ENCOUNTER 2020-05-08 01:14 | Outpatient (CLI) | payer MEDICARE, BC, SELFPAY ==
--- NOTE | 2020-05-08 07:30 | DI.MRI_ITS ---
EXAM: MR LUMBAR SPINE WO CLINICAL HISTORY: right sciatica,BACK PAIN,M54.31. TECHNIQUE: Multiplanar multisequence MRI of the Lumbar spine was performed. COMPARISON: No exams were available for comparison FINDINGS: Bones: The last intervertebral disc space is designated the L5/S1 level for the numbering purpose of this examination. The vertebral body heights are well maintained. Alignment is satisfactory. Mild d egenerative endplate signal changes are seen at L1-L2 and T12-L1. A Schmorl's node is seen in the inf erior endplate of L1. Cord: The conus tip ends at the T12 level. It is of normal size and signal intensity. T12-L1: Herniated disc with extrusion posterior to the L1 vertebral body. Mild narrowing of the cent ral spinal canal.Moderate right and mild left neural foraminal stenosis. L1-2: Diffuse disc bulge. Hypertrophic changes of the facets. Moderate central spinal canal stenosi s.Mild neural foraminal stenosis bilaterally. L2-3: Small diffuse disc bulge. Small central disc herniation. Mild narrowing of the central spinal canal.Mild left neural foraminal stenosis. L3-4: There is a diffuse disc bulge. Hypertrophic changes of the ligamentum flavum are noted. Moder ate central spinal canal stenosis results.Moderate bilateral neural foraminal stenosis. L4-5: There is a diffuse disc bulge. There are hypertrophic changes of the facets and ligamentum fla vum. Moderately severe central spinal canal stenosis results.Moderate bilateral neural foraminal corrine nosis. L5-S1: There is a small central disc herniation. Degenerative changes of the facets are noted. No c entral spinal canal stenosis.Moderate bilateral neural foraminal stenosis. Soft tissues: The visualized SI joints and sacrum are well maintained. The paraspinal soft tissues ar e unremarkable. IMPRESSION: 1. T12-L1 herniated disc with extrusion posterior to the L1 vertebral body. Central spinal canal and neural foraminal stenosis at this level. 2. Multilevel degenerative changes resulting in central spinal canal and neural foraminal stenosis as described in detail above. DATA REPOSITORY:
== END 2020-05-08 01:34 ==
PROVIDERS: PCP Emergency Medicine; Visit Provider Emergency Medicine
DX: M51.25 Other intervertebral disc displacement, thoracolumbar region (principal); M48.05 Spinal stenosis, thoracolumbar region; M54.31 Sciatica, right side
CPT/HCPCS: 72148

== ENCOUNTER 2020-05-20 01:10 | Outpatient (CLI) | payer MEDICARE, BC, SELFPAY ==
[2020-05-20 07:50] LABS: Abs Immature Grans 0.02 10^3/uL (0.0-0.06); Absolute Basophil Count 0.04 10^3/uL (0.0-0.2); Absolute Eosinophil Count 0.19 10^3/uL (0.0-0.7); Absolute Lymphocyte Count 2.04 10^3/uL (1.2-3.4); Absolute Monocyte Count 0.46 10^3/uL (0.1-0.8); Absolute Neutrophil Count 2.67 10^3/uL (1.2-6.7); Basophils % 0.7; Eosinophils % 3.5; HCT 40.2 % (40.0-50.0); HGB 13.6 g/dL (13.5-17.5); Immature Grans % 0.4; Lymphocytes % 37.6; MCH 28.7 pg (27.0-33.0); MCHC 33.8 % (32.0-36.0); MCV 84.8 fL (80-95); MPV 9.6 fL (8.0-11.0); Monocytes % 8.5; Neutrophils % 49.3; Nucleated RBC 0 %; Platelet Count 133 10^3/uL (130-400); RBC 4.74 10^6/uL (4.36-5.78); RDW 13.5 % (11.8-14.1); RDW-SD 42.2 fL; WBC 5.42 10^3/uL (4.4-10.8)
[2020-05-20 08:34] LABS: ALT 72 U/L (16-63); AST 36 U/L (15-37); Alkaline Phosphatase 51 U/L (46-116); Anion Gap 8.2 mmol/L (3-11); BUN 18 mg/dL (7-18); Bilirubin, Direct 0.17 mg/dL (0.00-0.20); Bilirubin, Total 0.7 mg/dL (0.2-1.0); CO2 28.8 mmol/L (21.0-32.0); CREATININE 1.14 mg/dL (0.70-1.30); Calcium 8.6 mg/dL (8.5-10.1); Chloride 103 mmol/L (98-107); Glucose 110 mg/dL (74-106); Magnesium 2.2 mg/dL (1.8-2.4); PHOSPHORUS 3.2 mg/dL (2.6-4.7); Sodium 140 mmol/L (136-145); Total Protein 7.2 g/dL (6.4-8.2)
[2020-05-20 08:43] LABS: TSH 0.47 uIU/mL (0.36-3.74)
[2020-05-21 11:26] LABS: Tacrolimus 2.8 ng/mL (See Note)
== END 2020-05-20 01:30 ==
PROVIDERS: PCP Emergency Medicine; Visit Provider Transplant Surgery
DX: E03.9 Hypothyroidism, unspecified (principal); M54.31 Sciatica, right side; Z94.4 Liver transplant status; Z79.899 Other long term (current) drug therapy
CPT/HCPCS: 36415; 80053; 80197; 82248; 83735; 84100; 84443; 85025

== ENCOUNTER 2020-08-19 04:03 | Outpatient (CLI) | payer MEDICARE, BC, SELFPAY ==
[2020-08-19 08:03] LABS: Abs Immature Grans 0.02 10^3/uL (0.0-0.06); Absolute Basophil Count 0.03 10^3/uL (0.0-0.2); Absolute Eosinophil Count 0.25 10^3/uL (0.0-0.7); Absolute Lymphocyte Count 2.35 10^3/uL (1.2-3.4); Absolute Monocyte Count 0.59 10^3/uL (0.1-0.8); Absolute Neutrophil Count 3.12 10^3/uL (1.2-6.7); Basophils % 0.5; Eosinophils % 3.9; HCT 43.9 % (40.0-50.0); HGB 14.9 g/dL (13.5-17.5); Immature Grans % 0.3; Lymphocytes % 36.9; MCH 28.7 pg (27.0-33.0); MCHC 33.9 % (32.0-36.0); MCV 84.4 fL (80-95); MPV 10.3 fL (8.0-11.0); Monocytes % 9.3; Neutrophils % 49.1; Nucleated RBC 0 %; Platelet Count 123 10^3/uL (130-400); RDW 13.3 % (11.8-14.1); RDW-SD 40.8 fL; WBC 6.36 10^3/uL (4.4-10.8)
[2020-08-19 08:31] LABS: ALT 75 U/L (16-63); AST 37 U/L (15-37); Albumin 4.3 g/dL (3.4-5.0); Alkaline Phosphatase 55 U/L (46-116); Anion Gap 7.3 mmol/L (3-11); BUN 21 mg/dL (7-18); Bilirubin, Direct 0.15 mg/dL (0.00-0.20); Bilirubin, Total 0.8 mg/dL (0.2-1.0); CO2 28.7 mmol/L (21.0-32.0); CREATININE 1.18 mg/dL (0.70-1.30); Chloride 104 mmol/L (98-107); Glucose 114 mg/dL (74-106); PHOSPHORUS 3.7 mg/dL (2.6-4.7); Potassium 4.1 mmol/L (3.5-5.1); Sodium 140 mmol/L (136-145); Total Protein 7.8 g/dL (6.4-8.2)
[2020-08-19 08:46] LABS: Calculated LDL 54 mg/dL (<100); Cholesterol 124 mg/dL (<200); HDL Cholesterol 38 mg/dL (40-60); Triglyceride 162 mg/dL (<150)
[2020-08-20 11:48] LABS: Tacrolimus 3.6 ng/mL (See Note)
== END 2020-08-19 04:23 ==
PROVIDERS: Internal Medicine; PCP Emergency Medicine; Visit Provider Emergency Medicine
DX: Z94.4 Liver transplant status (principal); Z79.899 Other long term (current) drug therapy; E78.5 Hyperlipidemia, unspecified; Z51.81 Encounter for therapeutic drug level monitoring
CPT/HCPCS: 36415; 80053; 80061; 80197; 82248; 83735; 84100; 85025

== ENCOUNTER 2020-09-06 02:38 | Outpatient (CLI) | payer MEDICARE, BC, SELFPAY ==
[2020-09-06 08:54] LABS: Abs Immature Grans 0.02 10^3/uL (0.0-0.06); Absolute Basophil Count 0.03 10^3/uL (0.0-0.2); Absolute Eosinophil Count 0.17 10^3/uL (0.0-0.7); Absolute Lymphocyte Count 2.41 10^3/uL (1.2-3.4); Absolute Monocyte Count 0.58 10^3/uL (0.1-0.8); Basophils % 0.5; Eosinophils % 2.9; HCT 43.7 % (40.0-50.0); HGB 14.7 g/dL (13.5-17.5); Immature Grans % 0.3; Lymphocytes % 40.8; MCH 28.5 pg (27.0-33.0); MCHC 33.6 % (32.0-36.0); MCV 84.7 fL (80-95); MPV 10.6 fL (8.0-11.0); Monocytes % 9.8; Neutrophils % 45.7; Nucleated RBC 0 %; Platelet Count 134 10^3/uL (130-400); RBC 5.16 10^6/uL (4.36-5.78); RDW 13.4 % (11.8-14.1); RDW-SD 40.9 fL; WBC 5.91 10^3/uL (4.4-10.8)
[2020-09-06 09:43] LABS: ALT 73 U/L (16-63); AST 31 U/L (15-37); Albumin 4.1 g/dL (3.4-5.0); Alkaline Phosphatase 54 U/L (46-116); Anion Gap 11.2 mmol/L (3-11); BUN 19 mg/dL (7-18); Bilirubin, Total 0.8 mg/dL (0.2-1.0); CO2 27.8 mmol/L (21.0-32.0); CREATININE 1.26 mg/dL (0.70-1.30); Calcium 8.4 mg/dL (8.5-10.1); Chloride 103 mmol/L (98-107); Estimated GFR 56.42 (mL/min/1.73m2); Glucose 102 mg/dL (74-106); Magnesium 1.9 mg/dL (1.8-2.4); Potassium 3.9 mmol/L (3.5-5.1); Sodium 142 mmol/L (136-145); Total Protein 7.4 g/dL (6.4-8.2)
[2020-09-06 09:53] LABS: Bilirubin, Direct 0.17 mg/dL (0.00-0.20); PHOSPHORUS 3.4 mg/dL (2.6-4.7)
[2020-09-07 13:00] LABS: Tacrolimus 4.5 ng/mL (See Note)
== END 2020-09-06 02:58 ==
PROVIDERS: PCP Emergency Medicine; Visit Provider Transplant Surgery
DX: Z48.23 Encounter for aftercare following liver transplant (principal)
CPT/HCPCS: 36415; 80053; 80197; 82248; 83735; 84100; 85025

== ENCOUNTER 2020-09-16 04:25 | Outpatient (CLI) | payer MEDICARE, BC, SELFPAY ==
[2020-09-16 07:55] LABS: Abs Immature Grans 0.03 10^3/uL (0.0-0.06); Absolute Basophil Count 0.04 10^3/uL (0.0-0.2); Absolute Eosinophil Count 0.19 10^3/uL (0.0-0.7); Absolute Monocyte Count 0.58 10^3/uL (0.1-0.8); Absolute Neutrophil Count 3.22 10^3/uL (1.2-6.7); Basophils % 0.6; HCT 44.8 % (40.0-50.0); HGB 15.2 g/dL (13.5-17.5); Immature Grans % 0.5; Lymphocytes % 36.2; MCH 28.4 pg (27.0-33.0); MCHC 33.9 % (32.0-36.0); MCV 83.6 fL (80-95); MPV 10.5 fL (8.0-11.0); Monocytes % 9.1; Neutrophils % 50.6; Nucleated RBC 0 %; Platelet Count 118 10^3/uL (130-400); RBC 5.36 10^6/uL (4.36-5.78); RDW 13.6 % (11.8-14.1); RDW-SD 41.2 fL; WBC 6.36 10^3/uL (4.4-10.8)
[2020-09-16 08:31] LABS: ALT 85 U/L (16-63); AST 43 U/L (15-37); Albumin 4.2 g/dL (3.4-5.0); Alkaline Phosphatase 56 U/L (46-116); Anion Gap 10.7 mmol/L (3-11); BUN 23 mg/dL (7-18); Bilirubin, Direct 0.14 mg/dL (0.00-0.20); Bilirubin, Total 0.8 mg/dL (0.2-1.0); CO2 26.3 mmol/L (21.0-32.0); CREATININE 1.4 mg/dL (0.70-1.30); Calcium 9.2 mg/dL (8.5-10.1); Chloride 102 mmol/L (98-107); Estimated GFR 49.96 (mL/min/1.73m2); Glucose 108 mg/dL (74-106); PHOSPHORUS 3.7 mg/dL (2.6-4.7); Potassium 4.2 mmol/L (3.5-5.1); Sodium 139 mmol/L (136-145); Total Protein 7.9 g/dL (6.4-8.2)
[2020-09-17 12:39] LABS: Tacrolimus 4.1 ng/mL (See Note)
== END 2020-09-16 04:45 ==
PROVIDERS: PCP Emergency Medicine; Visit Provider Transplant Surgery
DX: Z79.899 Other long term (current) drug therapy (principal); Z94.4 Liver transplant status; Z48.23 Encounter for aftercare following liver transplant
CPT/HCPCS: 36415; 80053; 80197; 82248; 83735; 84100; 85025

== ENCOUNTER 2020-09-30 02:03 | Outpatient (CLI) | payer MEDICARE, BC, SELFPAY ==
[2020-09-30 08:28] LABS: Abs Immature Grans 0.03 10^3/uL (0.0-0.06); Absolute Basophil Count 0.04 10^3/uL (0.0-0.2); Absolute Eosinophil Count 0.22 10^3/uL (0.0-0.7); Absolute Lymphocyte Count 2.45 10^3/uL (1.2-3.4); Basophils % 0.6; Eosinophils % 3.4; HGB 14.6 g/dL (13.5-17.5); Immature Grans % 0.5; MCH 28.4 pg (27.0-33.0); MCHC 33.2 % (32.0-36.0); MCV 85.6 fL (80-95); MPV 10.3 fL (8.0-11.0); Monocytes % 9.3; Neutrophils % 48.2; Nucleated RBC 0 %; Platelet Count 131 10^3/uL (130-400); RBC 5.14 10^6/uL (4.36-5.78); RDW 13.6 % (11.8-14.1); RDW-SD 42.2 fL; WBC 6.44 10^3/uL (4.4-10.8)
[2020-09-30 08:45] LABS: ALT 81 U/L (16-63); AST 32 U/L (15-37); Albumin 4.1 g/dL (3.4-5.0); Alkaline Phosphatase 56 U/L (46-116); Anion Gap 6.1 mmol/L (3-11); BUN 19 mg/dL (7-18); Bilirubin, Direct 0.17 mg/dL (0.00-0.20); Bilirubin, Total 0.8 mg/dL (0.2-1.0); CO2 30.9 mmol/L (21.0-32.0); CREATININE 1.2 mg/dL (0.70-1.30); Calculated LDL 55 mg/dL (<100); Chloride 103 mmol/L (98-107); Cholesterol 125 mg/dL (<200); Estimated GFR 59.68 (mL/min/1.73m2); Glucose 99 mg/dL (74-106); HDL Cholesterol 39 mg/dL (40-60); Potassium 4.4 mmol/L (3.5-5.1); Sodium 140 mmol/L (136-145); Total Protein 7.6 g/dL (6.4-8.2); Triglyceride 159 mg/dL (<150)
[2020-09-30 08:57] LABS: PHOSPHORUS 4.3 mg/dL (2.6-4.7)
[2020-09-30 09:20] LABS: PROTEIN 9.2 mg/dL
[2020-09-30 09:21] LABS: COMMENT (LAB VIEW ONLY) 141.28 mg/dL; Prot/Crea Ur Ratio 0.06
[2020-10-01 13:19] LABS: Tacrolimus 3.6 ng/mL (See Note)
== END 2020-09-30 02:04 | disposition home or self-care (01) ==
LOC: LBO 02:03
PROVIDERS: PCP Emergency Medicine; Visit Provider Transplant Surgery
DX: Z94.4 Liver transplant status (principal); Z79.899 Other long term (current) drug therapy; Z48.23 Encounter for aftercare following liver transplant
CPT/HCPCS: 36415; 80053; 80061; 80197; 82248; 82565; 83735; 84100; 84156; 85025

== ENCOUNTER 2020-10-21 04:18 | Outpatient (CLI) | payer MEDICARE, BC, SELFPAY ==
[2020-10-21 07:56] LABS: Abs Immature Grans 0.01 10^3/uL (0.0-0.06); Absolute Basophil Count 0.04 10^3/uL (0.0-0.2); Absolute Eosinophil Count 0.22 10^3/uL (0.0-0.7); Absolute Lymphocyte Count 2.33 10^3/uL (1.2-3.4); Absolute Monocyte Count 0.47 10^3/uL (0.1-0.8); Absolute Neutrophil Count 2.13 10^3/uL (1.2-6.7); Basophils % 0.8; Eosinophils % 4.2; HCT 43.3 % (40.0-50.0); HGB 14.7 g/dL (13.5-17.5); Immature Grans % 0.2; Lymphocytes % 44.8; MCH 28.8 pg (27.0-33.0); MCHC 33.9 % (32.0-36.0); MCV 84.7 fL (80-95); MPV 9.9 fL (8.0-11.0); Nucleated RBC 0 %; Platelet Count 126 10^3/uL (130-400); RBC 5.11 10^6/uL (4.36-5.78); RDW 13.4 % (11.8-14.1); RDW-SD 41.7 fL
[2020-10-21 08:49] LABS: ALT 91 U/L (16-63); AST 45 U/L (15-37); Alkaline Phosphatase 59 U/L (46-116); Anion Gap 8.5 mmol/L (3-11); BUN 19 mg/dL (7-18); Bilirubin, Direct 0.14 mg/dL (0.00-0.20); Bilirubin, Total 0.8 mg/dL (0.2-1.0); CO2 28.5 mmol/L (21.0-32.0); Calcium 8.4 mg/dL (8.5-10.1); Chloride 103 mmol/L (98-107); Glucose 108 mg/dL (74-106); Magnesium 2.2 mg/dL (1.8-2.4); PHOSPHORUS 3.2 mg/dL (2.6-4.7); Sodium 140 mmol/L (136-145); Total Protein 7.6 g/dL (6.4-8.2)
[2020-10-22 12:46] LABS: Tacrolimus <2.0 ng/mL (See Note)
[2020-10-22 14:46] LABS: Sirolimus 6.8 ng/mL (See Note)
== END 2020-10-21 04:19 | disposition home or self-care (01) ==
LOC: LBO 04:18
PROVIDERS: PCP Emergency Medicine; Visit Provider Transplant Surgery
DX: Z94.4 Liver transplant status (principal); Z48.23 Encounter for aftercare following liver transplant; Z79.899 Other long term (current) drug therapy
CPT/HCPCS: 36415; 80053; 80195; 80197; 82248; 83735; 84100; 85025

== ENCOUNTER 2020-11-04 03:39 | Outpatient (CLI) | payer MEDICARE, BC, SELFPAY ==
[2020-11-04 08:04] LABS: Abs Immature Grans 0.02 10^3/uL (0.0-0.06); Absolute Basophil Count 0.04 10^3/uL (0.0-0.2); Absolute Eosinophil Count 0.17 10^3/uL (0.0-0.7); Absolute Lymphocyte Count 2.27 10^3/uL (1.2-3.4); Absolute Monocyte Count 0.57 10^3/uL (0.1-0.8); Absolute Neutrophil Count 2.16 10^3/uL (1.2-6.7); Basophils % 0.8; Eosinophils % 3.3; HCT 43.4 % (40.0-50.0); HGB 14.5 g/dL (13.5-17.5); Immature Grans % 0.4; Lymphocytes % 43.4; MCH 28.4 pg (27.0-33.0); MCHC 33.4 % (32.0-36.0); MCV 85.1 fL (80-95); MPV 9.9 fL (8.0-11.0); Monocytes % 10.9; Neutrophils % 41.2; Nucleated RBC 0 %; Platelet Count 115 10^3/uL (130-400); RDW 12.8 % (11.8-14.1); WBC 5.23 10^3/uL (4.4-10.8)
[2020-11-04 08:49] LABS: ALT 98 U/L (16-63); AST 43 U/L (15-37); Alkaline Phosphatase 56 U/L (46-116); Anion Gap 7.9 mmol/L (3-11); BUN 19 mg/dL (7-18); Bilirubin, Direct 0.2 mg/dL (0.0-0.2); Bilirubin, Total 0.7 mg/dL (0.2-1.0); CO2 30.1 mmol/L (21.0-32.0); CREATININE 1.2 mg/dL (0.70-1.30); Calcium 8.5 mg/dL (8.5-10.1); Chloride 104 mmol/L (98-107); Estimated GFR 59.51 (mL/min/1.73m2); Glucose 106 mg/dL (74-106); Magnesium 2.3 mg/dL (1.8-2.4); PHOSPHORUS 3.5 mg/dL (2.6-4.7); Potassium 4.1 mmol/L (3.5-5.1); Sodium 142 mmol/L (136-145); Total Protein 7.5 g/dL (6.4-8.2)
[2020-11-05 12:14] LABS: Tacrolimus <2.0 ng/mL (See Note)
== END 2020-11-04 03:40 | disposition home or self-care (01) ==
LOC: LBO 03:39
PROVIDERS: PCP Emergency Medicine; Visit Provider Transplant Surgery
DX: Z94.4 Liver transplant status (principal); Z79.899 Other long term (current) drug therapy; Z48.23 Encounter for aftercare following liver transplant; Z51.81 Encounter for therapeutic drug level monitoring
CPT/HCPCS: 36415; 80053; 80195; 80197; 82248; 83735; 84100; 85025

== ENCOUNTER 2021-01-06 02:23 | Outpatient (CLI) | payer MEDICARE, BC, SELFPAY ==
[2021-01-06 08:13] LABS: ALT 68 U/L (16-63); AST 36 U/L (15-37); Alkaline Phosphatase 56 U/L (46-116); Anion Gap 10.3 mmol/L (3-11); BUN 30 mg/dL (7-18); Bilirubin, Direct 0.2 mg/dL (0.0-0.2); Bilirubin, Total 0.7 mg/dL (0.2-1.0); CO2 26.7 mmol/L (21.0-32.0); CREATININE 1.1 mg/dL (0.70-1.30); Calcium 8.2 mg/dL (8.5-10.1); Chloride 106 mmol/L (98-107); Glucose 118 mg/dL (74-106); Magnesium 2.2 mg/dL (1.8-2.4); PHOSPHORUS 2.7 mg/dL (2.6-4.7); Potassium 3.6 mmol/L (3.5-5.1); Sodium 143 mmol/L (136-145)
[2021-01-06 08:27] LABS: Abs Immature Grans 0.02 10^3/uL (0.0-0.06); Absolute Basophil Count 0.02 10^3/uL (0.0-0.2); Absolute Eosinophil Count 0.13 10^3/uL (0.0-0.7); Absolute Lymphocyte Count 2.18 10^3/uL (1.2-3.4); Absolute Monocyte Count 0.59 10^3/uL (0.1-0.8); Absolute Neutrophil Count 3.17 10^3/uL (1.2-6.7); Basophils % 0.3; Eosinophils % 2.1; HCT 38.7 % (40.0-50.0); Immature Grans % 0.3; Lymphocytes % 35.7; MCH 27.5 pg (27.0-33.0); MCHC 33.6 % (32.0-36.0); MCV 81.8 fL (80-95); MPV 10.3 fL (8.0-11.0); Monocytes % 9.7; Neutrophils % 51.9; Nucleated RBC 0 %; Platelet Count 131 10^3/uL (130-400); RBC 4.73 10^6/uL (4.36-5.78); RDW 13.6 % (11.8-14.1); RDW-SD 40.2 fL; WBC 6.11 10^3/uL (4.4-10.8)
[2021-01-07 13:01] LABS: Tacrolimus <2.0 ng/mL (See Note)
[2021-01-08 12:52] LABS: Sirolimus 7.7 ng/mL (See Note)
== END 2021-01-06 02:24 | disposition home or self-care (01) ==
LOC: LBO 02:23
PROVIDERS: PCP Emergency Medicine; Visit Provider Transplant Surgery
DX: Z94.4 Liver transplant status (principal); Z79.899 Other long term (current) drug therapy; Z48.23 Encounter for aftercare following liver transplant
CPT/HCPCS: 36415; 80053; 80195; 80197; 82248; 83735; 84100; 85025

== ENCOUNTER 2021-02-19 02:42 | Outpatient (CLI) | payer MEDICARE, BC, SELFPAY ==
[2021-02-19 07:45] LABS: Abs Immature Grans 0.03 10^3/uL (0.0-0.06); Absolute Basophil Count 0.03 10^3/uL (0.0-0.2); Absolute Eosinophil Count 0.17 10^3/uL (0.0-0.7); Absolute Lymphocyte Count 2.15 10^3/uL (1.2-3.4); Absolute Monocyte Count 0.64 10^3/uL (0.1-0.8); Absolute Neutrophil Count 2.46 10^3/uL (1.2-6.7); Basophils % 0.5; Eosinophils % 3.1; HCT 39.9 % (40.0-50.0); HGB 13.2 g/dL (13.5-17.5); Immature Grans % 0.5; Lymphocytes % 39.2; MCH 26.8 pg (27.0-33.0); MCHC 33.1 % (32.0-36.0); MCV 80.9 fL (80-95); MPV 10.1 fL (8.0-11.0); Monocytes % 11.7; Nucleated RBC 0 %; Platelet Count 135 10^3/uL (130-400); RBC 4.93 10^6/uL (4.36-5.78); RDW 14.3 % (11.8-14.1); RDW-SD 41.6 fL; WBC 5.48 10^3/uL (4.4-10.8)
[2021-02-19 08:53] LABS: ALT 67 U/L (16-63); AST 37 U/L (15-37); Albumin 4.1 g/dL (3.4-5.0); Alkaline Phosphatase 63 U/L (46-116); Anion Gap 13.4 mmol/L (3-11); BUN 20 mg/dL (7-18); Bilirubin, Direct 0.1 mg/dL (0.0-0.2); Bilirubin, Total 0.5 mg/dL (0.2-1.0); CO2 28.6 mmol/L (21.0-32.0); CREATININE 1.2 mg/dL (0.70-1.30); Calcium 8.7 mg/dL (8.5-10.1); Chloride 101 mmol/L (98-107); Estimated GFR 59.51 (mL/min/1.73m2); Glucose 118 mg/dL (74-106); Magnesium 2.1 mg/dL (1.8-2.4); PHOSPHORUS 3.6 mg/dL (2.6-4.7); Potassium 3.5 mmol/L (3.5-5.1); Sodium 143 mmol/L (136-145); Total Protein 7.6 g/dL (6.4-8.2)
[2021-02-19 09:33] LABS: PROTEIN 14.8 mg/dL
[2021-02-19 09:34] LABS: COMMENT (LAB VIEW ONLY) 202.72 mg/dL; Prot/Crea Ur Ratio 0.07
[2021-02-20 13:25] LABS: Tacrolimus <2.0 ng/mL (See Note)
[2021-02-21 15:02] LABS: Sirolimus 5.4 ng/mL (See Note)
== END 2021-02-19 02:43 | disposition home or self-care (01) ==
LOC: LBO 02:42
PROVIDERS: PCP Emergency Medicine; Visit Provider Transplant Surgery
DX: Z94.4 Liver transplant status (principal); Z79.899 Other long term (current) drug therapy; Z48.23 Encounter for aftercare following liver transplant
CPT/HCPCS: 36415; 80053; 80195; 80197; 82248; 82565; 83735; 84100; 84156; 85025

== ENCOUNTER 2021-03-10 02:10 | Outpatient (CLI) | payer MEDICARE, BC, SELFPAY ==
[2021-03-10 07:44] LABS: Abs Immature Grans 0.02 10^3/uL (0.0-0.06); Absolute Basophil Count 0.04 10^3/uL (0.0-0.2); Absolute Eosinophil Count 0.15 10^3/uL (0.0-0.7); Absolute Lymphocyte Count 2.28 10^3/uL (1.2-3.4); Absolute Monocyte Count 0.55 10^3/uL (0.1-0.8); Absolute Neutrophil Count 2.73 10^3/uL (1.2-6.7); Basophils % 0.7; Eosinophils % 2.6; HCT 41.9 % (40.0-50.0); HGB 13.6 g/dL (13.5-17.5); Immature Grans % 0.3; Lymphocytes % 39.5; MCH 26.7 pg (27.0-33.0); MCHC 32.5 % (32.0-36.0); MCV 82.2 fL (80-95); MPV 10.4 fL (8.0-11.0); Monocytes % 9.5; Neutrophils % 47.4; Nucleated RBC 0 %; Platelet Count 129 10^3/uL (130-400); RDW 14.8 % (11.8-14.1); RDW-SD 44.4 fL; WBC 5.77 10^3/uL (4.4-10.8)
[2021-03-10 08:13] LABS: PROTEIN 19.8 mg/dL
[2021-03-10 08:19] LABS: Prot/Crea Ur Ratio 0.09
[2021-03-10 08:20] LABS: ALT 64 U/L (16-63); AST 36 U/L (15-37); Albumin 4.3 g/dL (3.4-5.0); Alkaline Phosphatase 58 U/L (46-116); Anion Gap 8.7 mmol/L (3-11); BUN 21 mg/dL (7-18); Bilirubin, Total 0.5 mg/dL (0.2-1.0); CO2 32.3 mmol/L (21.0-32.0); CREATININE 1.2 mg/dL (0.70-1.30); Calcium 8.8 mg/dL (8.5-10.1); Chloride 102 mmol/L (98-107); Estimated GFR 59.51 (mL/min/1.73m2); Glucose 109 mg/dL (74-106); Magnesium 2.3 mg/dL (1.8-2.4); PHOSPHORUS 3.9 mg/dL (2.6-4.7); Potassium 3.6 mmol/L (3.5-5.1); Sodium 143 mmol/L (136-145); Total Protein 7.7 g/dL (6.4-8.2)
[2021-03-10 15:45] LABS: Bilirubin, Direct 0.1 mg/dL (0.0-0.2)
[2021-03-11 13:29] LABS: Tacrolimus <2.0 ng/mL (See Note)
[2021-03-12 12:38] LABS: Sirolimus 4.7 ng/mL (See Note)
== END 2021-03-10 02:11 | disposition home or self-care (01) ==
LOC: LBO 02:10
PROVIDERS: PCP Emergency Medicine; Visit Provider Transplant Surgery
DX: Z94.4 Liver transplant status (principal); Z79.899 Other long term (current) drug therapy; Z48.23 Encounter for aftercare following liver transplant
CPT/HCPCS: 36415; 80053; 80195; 80197; 82248; 82565; 83735; 84100; 84156; 85025

== ENCOUNTER 2021-04-23 21:19 | Outpatient (CLI) | payer MEDICARE, BC, SELFPAY ==
--- NOTE | 2021-04-23 08:30 | DI.RAD_ITS ---
Exam(s) XR HIP RT COMPLETE AP PELVIS EXAM: XR HIP RT COMPLETE AP PELVIS CLINICAL HISTORY: right right pain, c/o arthritis M25.551 PAIN RT HIP. TECHNIQUE: 2D digital imaging was performed. COMPARISON: CT CT ABDOMEN PELVIS W from 09/30/[address] ABDOMEN PELVIS W from 09/30/2018 FINDINGS: There is no evidence of pelvic hip fracture. No hip joint space narrowing. No osteophytes. Small c orticated density is seen adjacent to the superior aspect of the greater trochanter of the right hip. Bone density appears normal. No lytic osseous lesions. IMPRESSION: Minimal degenerative changes in the hips. No fractures. DATA REPOSITORY: RADIATION DOSE DELIVERED:
== END 2021-04-23 21:39 ==
PROVIDERS: PCP Emergency Medicine; Visit Provider Physician Assistant
DX: M25.551 Pain in right hip (principal)
CPT/HCPCS: 73502

== ENCOUNTER 2021-05-12 03:28 | Outpatient (CLI) | payer MEDICARE, BC, SELFPAY ==
[2021-05-12 07:53] LABS: Abs Immature Grans 0.04 10^3/uL (0.0-0.06); Absolute Basophil Count 0.04 10^3/uL (0.0-0.2); Absolute Eosinophil Count 0.23 10^3/uL (0.0-0.7); Absolute Monocyte Count 0.59 10^3/uL (0.1-0.8); Absolute Neutrophil Count 2.72 10^3/uL (1.2-6.7); Basophils % 0.7; Eosinophils % 4.1; HCT 42.3 % (40.0-50.0); HGB 13.8 g/dL (13.5-17.5); Immature Grans % 0.7; Lymphocytes % 35.6; MCH 26.9 pg (27.0-33.0); MCHC 32.6 % (32.0-36.0); MCV 82.5 fL (80-95); Monocytes % 10.5; Neutrophils % 48.4; Nucleated RBC 0 %; Platelet Count 136 10^3/uL (130-400); RBC 5.13 10^6/uL (4.36-5.78); RDW 15.3 % (11.8-14.1); RDW-SD 45.9 fL; WBC 5.62 10^3/uL (4.4-10.8)
[2021-05-12 08:49] LABS: PROTEIN 21.8 mg/dL
[2021-05-12 08:52] LABS: Prot/Crea Ur Ratio 0.07
[2021-05-12 08:57] LABS: ALT 97 U/L (16-63); AST 50 U/L (15-37); Albumin 4.1 g/dL (3.4-5.0); Alkaline Phosphatase 52 U/L (46-116); Anion Gap 6.1 mmol/L (3-11); BUN 20 mg/dL (7-18); Bilirubin, Direct 0.2 mg/dL (0.0-0.2); Bilirubin, Total 0.6 mg/dL (0.2-1.0); CO2 32.9 mmol/L (21.0-32.0); CREATININE 1.2 mg/dL (0.70-1.30); Calcium 8.6 mg/dL (8.5-10.1); Chloride 102 mmol/L (98-107); Estimated GFR 59.51 (mL/min/1.73m2); Glucose 110 mg/dL (74-106); Magnesium 2.4 mg/dL (1.8-2.4); PHOSPHORUS 3.8 mg/dL (2.6-4.7); Potassium 3.8 mmol/L (3.5-5.1); Sodium 141 mmol/L (136-145); Total Protein 7.5 g/dL (6.4-8.2)
[2021-05-13 13:14] LABS: Tacrolimus <2.0 ng/mL (See Note)
[2021-05-14 11:55] LABS: Sirolimus 4.3 ng/mL (See Note)
== END 2021-05-12 03:29 | disposition home or self-care (01) ==
PROVIDERS: PCP Emergency Medicine; Visit Provider Transplant Surgery
DX: Z48.23 Encounter for aftercare following liver transplant (principal); Z94.4 Liver transplant status; Z79.899 Other long term (current) drug therapy
CPT/HCPCS: 36415; 80053; 80195; 80197; 82248; 82565; 83735; 84100; 84156; 85025

== ENCOUNTER 2021-05-21 02:44 | Outpatient (CLI) | payer MEDICARE, BC, SELFPAY ==
[2021-05-21 07:47] LABS: Abs Immature Grans 0.02 10^3/uL (0.0-0.06); Absolute Basophil Count 0.06 10^3/uL (0.0-0.2); Absolute Eosinophil Count 0.27 10^3/uL (0.0-0.7); Absolute Lymphocyte Count 2.28 10^3/uL (1.2-3.4); Absolute Monocyte Count 0.56 10^3/uL (0.1-0.8); Absolute Neutrophil Count 2.97 10^3/uL (1.2-6.7); Eosinophils % 4.4; HCT 43.2 % (40.0-50.0); HGB 13.7 g/dL (13.5-17.5); Immature Grans % 0.3; MCH 26.5 pg (27.0-33.0); MCHC 31.7 % (32.0-36.0); MCV 83.6 fL (80-95); MPV 9.6 fL (8.0-11.0); Monocytes % 9.1; Neutrophils % 48.2; Nucleated RBC 0 %; Platelet Count 145 10^3/uL (130-400); RBC 5.17 10^6/uL (4.36-5.78); RDW 15.4 % (11.8-14.1); RDW-SD 46.7 fL; WBC 6.16 10^3/uL (4.4-10.8)
[2021-05-21 08:40] LABS: PROTEIN 21.8 mg/dL
[2021-05-21 08:49] LABS: ALT 83 U/L (16-63); AST 47 U/L (15-37); Albumin 4.1 g/dL (3.4-5.0); Alkaline Phosphatase 48 U/L (46-116); Anion Gap 4.2 mmol/L (3-11); BUN 17 mg/dL (7-18); Bilirubin, Total 0.6 mg/dL (0.2-1.0); CO2 33.8 mmol/L (21.0-32.0); CREATININE 1.1 mg/dL (0.70-1.30); Calcium 8.6 mg/dL (8.5-10.1); Chloride 103 mmol/L (98-107); Glucose 100 mg/dL (74-106); Magnesium 2.3 mg/dL (1.8-2.4); PHOSPHORUS 3.9 mg/dL (2.6-4.7); Potassium 3.9 mmol/L (3.5-5.1); Sodium 141 mmol/L (136-145); Total Protein 7.6 g/dL (6.4-8.2)
[2021-05-21 16:11] LABS: Bilirubin, Direct 0.1 mg/dL (0.0-0.2)
[2021-05-22 13:46] LABS: Tacrolimus <2.0 ng/mL (See Note)
[2021-05-23 12:11] LABS: Sirolimus 4.5 ng/mL (See Note)
== END 2021-05-21 02:45 | disposition home or self-care (01) ==
LOC: LBO 02:45
PROVIDERS: PCP Emergency Medicine; Visit Provider Transplant Surgery
DX: Z94.4 Liver transplant status (principal); Z48.23 Encounter for aftercare following liver transplant; Z79.899 Other long term (current) drug therapy
CPT/HCPCS: 36415; 80053; 80195; 80197; 82248; 82565; 83735; 84100; 84156; 85025

== ENCOUNTER 2021-06-04 03:37 | Outpatient (CLI) | payer MEDICARE, BC, SELFPAY ==
[2021-06-04 07:38] LABS: Abs Immature Grans 0.02 10^3/uL (0.0-0.06); Absolute Basophil Count 0.05 10^3/uL (0.0-0.2); Absolute Eosinophil Count 0.19 10^3/uL (0.0-0.7); Absolute Lymphocyte Count 2.02 10^3/uL (1.2-3.4); Absolute Monocyte Count 0.52 10^3/uL (0.1-0.8); Absolute Neutrophil Count 3.13 10^3/uL (1.2-6.7); Basophils % 0.8; Eosinophils % 3.2; HGB 13.4 g/dL (13.5-17.5); Immature Grans % 0.3; Lymphocytes % 34.1; MCH 26.3 pg (27.0-33.0); MCHC 31.9 % (32.0-36.0); MCV 82.4 fL (80-95); MPV 9.5 fL (8.0-11.0); Monocytes % 8.8; Neutrophils % 52.8; Nucleated RBC 0 %; Platelet Count 129 10^3/uL (130-400); RDW 15.1 % (11.8-14.1); RDW-SD 45.7 fL; WBC 5.93 10^3/uL (4.4-10.8)
[2021-06-04 08:22] LABS: PROTEIN 23.2 mg/dL
[2021-06-04 08:27] LABS: COMMENT (LAB VIEW ONLY) 226.82 mg/dL
[2021-06-04 08:41] LABS: ALT 79 U/L (16-63); AST 40 U/L (15-37); Alkaline Phosphatase 50 U/L (46-116); Anion Gap 5.8 mmol/L (3-11); BUN 19 mg/dL (7-18); Bilirubin, Total 0.4 mg/dL (0.2-1.0); CO2 33.2 mmol/L (21.0-32.0); CREATININE 1.3 mg/dL (0.70-1.30); Calcium 8.4 mg/dL (8.5-10.1); Chloride 103 mmol/L (98-107); Estimated GFR 54.26 (mL/min/1.73m2); Glucose 100 mg/dL (74-106); Magnesium 2.2 mg/dL (1.8-2.4); PHOSPHORUS 3.5 mg/dL (2.6-4.7); Potassium 3.7 mmol/L (3.5-5.1); Sodium 142 mmol/L (136-145); Total Protein 7.3 g/dL (6.4-8.2)
[2021-06-05 13:07] LABS: Tacrolimus <2.0 ng/mL (See Note)
[2021-06-06 12:09] LABS: Sirolimus 4.4 ng/mL (See Note)
== END 2021-06-04 03:38 | disposition home or self-care (01) ==
LOC: LBO 03:37
PROVIDERS: PCP Emergency Medicine; Visit Provider Transplant Surgery
DX: Z94.4 Liver transplant status (principal); Z48.23 Encounter for aftercare following liver transplant; Z79.899 Other long term (current) drug therapy
CPT/HCPCS: 36415; 80053; 80195; 80197; 82565; 83735; 84100; 84156; 85025

== ENCOUNTER 2021-07-07 03:14 | Outpatient (CLI) | payer MEDICARE, BC, SELFPAY ==
[2021-07-07 07:51] LABS: Abs Immature Grans 0.02 10^3/uL (0.0-0.06); Absolute Basophil Count 0.03 10^3/uL (0.0-0.2); Absolute Eosinophil Count 0.17 10^3/uL (0.0-0.7); Absolute Lymphocyte Count 2.05 10^3/uL (1.2-3.4); Absolute Monocyte Count 0.61 10^3/uL (0.1-0.8); Absolute Neutrophil Count 2.98 10^3/uL (1.2-6.7); Basophils % 0.5; Eosinophils % 2.9; HCT 42.2 % (40.0-50.0); HGB 13.5 g/dL (13.5-17.5); Immature Grans % 0.3; MCH 26.6 pg (27.0-33.0); MCV 83.2 fL (80-95); MPV 10.1 fL (8.0-11.0); Monocytes % 10.4; Neutrophils % 50.9; Nucleated RBC 0 %; Platelet Count 148 10^3/uL (130-400); RBC 5.07 10^6/uL (4.36-5.78); RDW 15.1 % (11.8-14.1); RDW-SD 45.9 fL; WBC 5.86 10^3/uL (4.4-10.8)
[2021-07-07 09:10] LABS: PROTEIN 16.2 mg/dL
[2021-07-07 09:11] LABS: COMMENT (LAB VIEW ONLY) 143.82 mg/dL; Prot/Crea Ur Ratio 0.11
[2021-07-07 09:16] LABS: ALT 66 U/L (16-63); AST 31 U/L (15-37); Albumin 4.2 g/dL (3.4-5.0); Alkaline Phosphatase 50 U/L (46-116); Anion Gap 5.8 mmol/L (3-11); BUN 18 mg/dL (7-18); Bilirubin, Direct 0.1 mg/dL (0.0-0.2); Bilirubin, Total 0.5 mg/dL (0.2-1.0); CO2 33.2 mmol/L (21.0-32.0); CREATININE 1.2 mg/dL (0.70-1.30); Calcium 8.5 mg/dL (8.5-10.1); Chloride 101 mmol/L (98-107); Estimated GFR 59.51 (mL/min/1.73m2); Glucose 105 mg/dL (74-106); Potassium 3.6 mmol/L (3.5-5.1); Sodium 140 mmol/L (136-145); Total Protein 7.5 g/dL (6.4-8.2)
[2021-07-07 19:52] LABS: Magnesium 2.4 mg/dL (1.8-2.4)
[2021-07-08 12:14] LABS: Tacrolimus <2.0 ng/mL (See Note)
[2021-07-09 12:44] LABS: Sirolimus 4.7 ng/mL (See Note)
== END 2021-07-07 03:15 | disposition home or self-care (01) ==
LOC: LBO 03:14
PROVIDERS: PCP Emergency Medicine; Visit Provider Transplant Surgery
DX: Z48.23 Encounter for aftercare following liver transplant (principal); Z79.899 Other long term (current) drug therapy; Z94.4 Liver transplant status
CPT/HCPCS: 36415; 80053; 80195; 80197; 82248; 82565; 83735; 84100; 84156; 85025

== ENCOUNTER 2021-09-08 03:47 | Outpatient (CLI) | payer MEDICARE, BC, SELFPAY ==
[2021-09-08 07:58] LABS: Abs Immature Grans 0.03 10^3/uL (0.0-0.06); Absolute Basophil Count 0.03 10^3/uL (0.0-0.2); Absolute Eosinophil Count 0.29 10^3/uL (0.0-0.7); Absolute Lymphocyte Count 1.99 10^3/uL (1.2-3.4); Absolute Monocyte Count 0.52 10^3/uL (0.1-0.8); Absolute Neutrophil Count 2.84 10^3/uL (1.2-6.7); Basophils % 0.5; Eosinophils % 5.1; HCT 43.2 % (40.0-50.0); HGB 13.8 g/dL (13.5-17.5); Immature Grans % 0.5; Lymphocytes % 34.9; MCH 26.4 pg (27.0-33.0); MCHC 31.9 % (32.0-36.0); MCV 82.8 fL (80-95); MPV 10.1 fL (8.0-11.0); Monocytes % 9.1; Neutrophils % 49.9; Nucleated RBC 0 %; Platelet Count 119 10^3/uL (130-400); RBC 5.22 10^6/uL (4.36-5.78); RDW 14.7 % (11.8-14.1); RDW-SD 44.3 fL
[2021-09-08 08:04] LABS: Hemoglobin A1C 5.6 % (<5.7)
[2021-09-08 08:40] LABS: COMMENT (LAB VIEW ONLY) 120.07 mg/dL; PROTEIN 6.7 mg/dL; Prot/Crea Ur Ratio 0.05
[2021-09-08 08:48] LABS: ALT 86 U/L (16-63); AST 51 U/L (15-37); Albumin 4.1 g/dL (3.4-5.0); Alkaline Phosphatase 51 U/L (46-116); Anion Gap 7.5 mmol/L (3-11); BUN 17 mg/dL (7-18); Bilirubin, Direct 0.1 mg/dL (0.0-0.2); Bilirubin, Total 0.5 mg/dL (0.2-1.0); CO2 30.5 mmol/L (21.0-32.0); CREATININE 1.2 mg/dL (0.70-1.30); Calcium 8.5 mg/dL (8.5-10.1); Chloride 101 mmol/L (98-107); Estimated GFR 59.51 (mL/min/1.73m2); Glucose 102 mg/dL (74-106); Magnesium 2.2 mg/dL (1.8-2.4); PHOSPHORUS 3.8 mg/dL (2.6-4.7); Potassium 3.6 mmol/L (3.5-5.1); Sodium 139 mmol/L (136-145); Total Protein 7.5 g/dL (6.4-8.2)
[2021-09-08 08:56] LABS: TSH 1.54 uIU/mL (0.36-3.74)
[2021-09-09 12:01] LABS: Sirolimus 3.3 ng/mL (See Note)
[2021-09-09 13:47] LABS: Tacrolimus <2.0 ng/mL (See Note)
== END 2021-09-08 03:48 | disposition home or self-care (01) ==
PROVIDERS: Emergency Medicine; PCP Family Medicine; Visit Provider Transplant Surgery
DX: E11.9 Type 2 diabetes mellitus without complications (principal); E03.9 Hypothyroidism, unspecified; Z48.23 Encounter for aftercare following liver transplant; Z94.4 Liver transplant status; Z79.899 Other long term (current) drug therapy
CPT/HCPCS: 36415; 80053; 80195; 80197; 82248; 82565; 83036; 83735; 84100; 84156; 84443; 85025

== ENCOUNTER 2021-10-30 13:10 | Emergency (ER) | payer MEDICARE, BC, SELFPAY ==
[2021-10-30] VITALS (10 sets, daily range): BP systolic 125–157; BP diastolic 72–81; PULSE 85–98; RESP 10–19; TEMP 36.8; O2SAT 98–100
--- NOTE | 2021-10-30 13:15 | DI.CT_ITS ---
Exam(s) CT ABDOMEN PELVIS W EXAM: CT ABDOMEN PELVIS W CLINICAL HISTORY: 'constipation' melena. Hx cirhosis, varices. TECHNIQUE: Imaging Protocol: Axial computed tomography images with coronal and sagittal reformatted images were created and reviewed CONTRAST MATERIAL: Intravenous: Omnipaque 100cc Oral: None COMPARISON: CT CT ABDOMEN PELVIS W from 09/30/2018 FINDINGS: VISUALIZED LUNG BASES: No acute infiltrates nor ominous nodules but there is appearance of an element of pulmonary fibrosis, as previously present. There are no pleural effusions.. ABDOMEN: There is no ascites. LIVER: There are no focal hepatic lesions evident. Air in the intrahepatic ducts of the left lobe is again noted. Ducts do not appear dilated. GALLBLADDER/BILIARY: Gallbladder is not seen and presumed to be surgically absent (no clips). CBD di ameter is upper normal. There is no air-gas in the CBD. PANCREAS: No evidence of pancreatic mass nor dilatation of the pancreatic duct. SPLEEN: Spleen size is upper normal. There are no splenic lesions. Splenic and portal veins are pat ent. ADRENALS: There are no significant adrenal masses. KIDNEYS:No cysts evident. No solid renal masses. No calculi nor hydronephrosis.. ABDOMINAL AORTA: Abdominal aorta is not enlarged. LYMPH NODES:There is no retroperitoneal nor paraaortic adenopathy. ABDOMINAL WALL: There is a midline fat containing anterior abdominal wall hernia again noted. No abn ormal streaking in the involved mesentery fat. GI: There are no bowel loops within the hernia sac. There is no bowel obstruction. There is a promi nent fat containing right inguinal hernia. The anterior right side of urinary bladder is in the righ t internal inguinal ring at the uppermost aspect of the right inguinal canal. Similar finding is not seen on the left side of the bladder. PELVIS: GI: No evidence of appendicitis.There is extensive sigmoid diverticulosis.. There is no obvious acut e diverticulitis. No free fluid. LYMPH NODES: There is no intrapelvic nor inguinal adenopathy. REPRODUCTIVE: Prostate and seminal vesicles appear unremarkable. URINARY BLADDER: No mass nor calculi. The anterior right side of the urinary bladder is in the upper right inguinal canal, as discussed above. OSSEOUS: No significant osseous lesions. No compression fractures but there is multilevel spinal canal stenosis. IMPRESSION: 1. Compared to the prior CT scan of 2019 the gallbladder surgically absent. Air within intrahepatic ducts (predominantly left hepatic lobe) is again noted. There is no air in the CBD. Correlation any prior ERCP is recommended 2. There is an unchanged fat only containing anterior abdominal hernia. This does not contain bowel loops and there is no evidence of bowel obstruction. No free air. No abscess. 3. There is a prominent fat containing right inguinal hernia. The anterior right side of the urinary bladder extends just beyond the right internal inguinal ring into this most superior aspect of the r ight inguinal canal. 4. There is extensive sigmoid diverticulosis. No obvious acute diverticulitis although please note t hat it would be easy to miss a very subtle case of diverticulitis given the extensive involvement of the sigmoid. Report called by myself to ER physician RADIATION DOSE DELIVERED: 1,112.97mGy.cm Total DLP DATA REPOSITORY: All CT scans at this facility are submitted to the National Radiology Data Registry (NRDR) Dose Index Registry (DIR) with the [employer] (ACR). RADIATION OPTIMIZATION: All CT scans at this facility use at least one of these dose optimization te chniques: automated exposure control; mA and/or kV adjustment per patient size (includes targeted exa ms where dose is matched to clinical indication); or iterative reconstruction.
--- NOTE | 2021-10-30 13:28 | W.ED.GENAD ---
Discharge Plan Disposition Patient Disposition: HOME Condition: Improving Discharge Details Clinical Impression: Melena, Diverticula of colon Primary Care Provider: Dallas Jara ED Provider: Last Pugh Home Meds and New Rx's Prescriptions: New amoxicillin-pot clavulanate 875-125 mg tablet 1 tab PO BID 7 Days Qty: 14 0RF Continued cholecalciferol (vitamin D3) 2,000 unit capsule 4,000 unit PO DAILY 0RF sildenafil [Viagra] 100 mg tablet 25 - 100 mg PO ONCE Qty: 7 4RF Rx Instructions: administer 30 minutes to 4 hours before activity pravastatin 40 mg tablet 40 mg PO DAILY 0RF omega-3 fatty acids-fish oil [Fish Oil] 360-1,200 mg capsule 2 cap PO TID 0RF prednisone 2.5 mg tablet 2.5 mg PO DAILY 0RF Label Comments: per [facility] sirolimus 1 mg tablet 1 mg PO DAILY 0RF Label Comments: per [facility] hydrochlorothiazide 25 mg tablet 25 mg PO QAM Qty: 90 3RF cetirizine [Zyrtec] 10 MG tablet 10 mg PO DAILY PRN0RF acetaminophen [Acetaminophen Extra Strength] 500 MG tablet 2 tab PO BID PRN 0RF aspirin [Aspir-81] 81 MG tablet,delayed release (DR/EC) 81 mg PO DAILY 0RF Label Comments: 01/08/16 TAKING 2 TABS UNTIL 01/13 THEN BACK TO 1 TAB DAILY. [facility] omeprazole 20 MG capsule,delayed release(DR/EC) 20 mg PO DAILY 0RF xgdmbhvn-bcig-jvjjgy-hyalur ac 1 EACH capsule 1 ea PO BID 0RF zinc sulfate [Zinc-220] 220 MG capsule 220 mg PO DAILY 0RF multivitamin [Daily Multi-Vitamin] 1 EACH tablet 1 ea PO 0RF Vitron-C 1 EACH tablet,delayed release (DR/EC) 1 ea PO DAILY 0RF cod liver oil 1 EACH capsule 1 ea PO DAILY 0RF levothyroxine [Synthroid] 125 mcg tablet 250 mcg PO DAILY Qty: 180 3RF magnesium oxide 400 mg (241.3 mg magnesium) tablet 800 mg PO BID 0RF tizanidine 2 mg tablet 2 mg PO TID PRN (Reason: muscle spasticity) Qty: 20 0RF Discharge Instructions Additional Instructions: Please follow-up with Dr. Stiles as planned. I will ask a copy of today's note be forwarded to his office. Please take Augmentin as prescribed. You received the afternoon's dose and next dose will be tomorrow. Hold your baby aspirin for 2 days. Return if you develop a fever, abdominal pain, worsening blood per rectum, or any other acute concerns. Following the course of antibiotics, I recommend you start daily fiber supplement such as Metamucil, as we discussed. 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 He states he ate some peanut approximately 5 days ago, some constipation and a blockage. He took an xnih-jzv-axrekqc stool softener which caused him evacuation of stool and then yesterday he noted dark tarry colored stools that were again present this morning. He presented to [facility] urgent care where a hemoglobin of 11 was obtained. Due to the patient's history and consideration for GI bleed he was referred to the ER. The patient will note that prior to liver transplant he had variceal bleeding which required intervention with banding x5. Patient arrives ER pleasant, alert, in no acute distress. He is normotensive with a pulse in the 80's. On exam he has no abdominal tenderness. His rectal exam does not have mass or active bleeding, but will note melanotic stool that is guaiac positive. Patient IV access established, screening laboratories obtained he is referred for CT imaging. Laboratories: White blood cell count of 5.9, hemoglobin 11.9, hematocrit 37, platelets 149. Chemistries reassuring with a BUN of 26, creatinine 1.2, AST 51, ALT 107. PT of 10, INR 1.0. CT imaging: Please see the formal report. There is extensive diverticulosis with no clear evidence of diverticulitis, although Dr. Aguila did note that he cannot exclude a mild diverticulitis Patient has previuosly noted and unchanged pneumobilia and surgically absent gallbladder. Additionally there is an anterior abdominal hernia that is fat-containing. Given the patient's history of recent abdominal discomfort, extensive diverticulosis, and question of mild diverticulitis I will opt to place him on a course of Augmentin. I will have him hold his baby aspirin for 2 doses. He has prestanding a follow-up with gastroenterology next week at [facility]. He will discuss with them follow-up of timing of colonoscopy, which has previously been recommended. Lab Data Lab results reviewed: Yes I reviewed the patient's lab results. Labs: Laboratory Results - last 24 hr 10/30/21 10/30/21 10/30/21 13:40 13:40 13:40 WBC 5.98 RBC 4.38 Hgb 11.9 L Hct 37.3 L MCV 85.2 MCH 27.2 MCHC 31.9 L RDW 16.8 H Plt Count 149 MPV 9.3 Immature Gran % 0.3 Neutrophils % 65.3 Lymphocytes % 22.4 Monocytes % 9.0 Eosinophils % 2.3 Basophils % 0.7 Nucleated RBC % 0 Absolute Neutrophils 3.90 Absolute Lymphocytes 1.34 Absolute Monocytes 0.54 Absolute Eosinophils 0.14 Absolute Basophils 0.04 PT 10.0 INR 1.0 APTT 22.8 Sodium 143 Potassium 3.6 Chloride 106 Carbon Dioxide 29.9 Anion Gap 7.1 BUN 26 H Creatinine 1.2 Estimated GFR/1.73 m2 59.35 Glucose 139 H Calcium 8.6 Magnesium 2.2 Total Bilirubin 0.4 AST 51 H ALT 107 H Alkaline Phosphatase 53 Total Protein 8.1 Albumin 4.2 HPI General Mode of arrival: ambulatory. Date/Time Provider Initiated Documentation: 10/30/21 13:16. Limitations to Documentation: no limitations. Information obtained by: patient. History of Present Illness 71 year old M presents to the emergency department with the chief complaint of Lola and constipation, no pain, described as mild, and is localized to the abdomen. Patient reports no radiation. Patient started experiencing this day(s) and it has been intermittent. improves with No relieving factors improve symptom(s), No exacerbating factors reported . Patient notes denies fever/chills, loss of appetite, nausea/vomiting, syncope and weakness. Patient did receive the following treatments prior to arrival, none Related Data Home Medications Medication Instructions Recorded Confirmed acetaminophen 500 mg tablet 2 tab PO BID PRN tab-cap 01/31/13 10/30/21 (Acetaminophen Extra Strength) cetirizine 10 mg tablet (Zyrtec) 10 mg PO DAILY PRN tab 01/31/13 10/30/21 aspirin 81 mg tablet,delayed 81 mg PO DAILY tab-cap 02/07/13 10/30/21 release (Aspir-) omeprazole 20 mg capsule,delayed 20 mg PO DAILY tab-cap 06/07/13 10/30/21 release glucosamin 375 mg-chond 300 1 ea PO BID 02/07/14 10/30/21 mg-collagen 50 mg-hyaluronic acid 2 mg cap zinc sulfate 50 mg zinc (220 mg) 220 mg PO DAILY 02/07/14 10/30/21 capsule (Zinc-220) multivitamin (Daily Multi-Vitamin) 1 ea PO 07/31/14 10/30/21 iron,carbonyl 65 mg-vitamin C 125 1 ea PO DAILY 05/08/16 10/30/21 mg tablet,delayed release (Vitron-C) cod liver oil 1 ea PO DAILY 11/10/16 10/30/21 cholecalciferol (vitamin D3) 50 4,000 unit PO DAILY cap 05/18/18 10/30/21 mcg (2,000 unit) capsule sildenafil 100 mg tablet (Viagra) 25 - 100 mg PO ONCE #7 tab 05/18/18 10/30/21 pravastatin 40 mg tablet 40 mg PO DAILY 09/30/18 10/30/21 omega-3 fatty acids-fish oil 360 2 cap PO TID cap 06/25/20 10/30/21 mg-1,200 mg capsule (Fish Oil) hydrochlorothiazide 25 mg tablet 25 mg PO QAM #90 tab 02/13/21 10/30/21 prednisone 2.5 mg tablet 2.5 mg PO DAILY 02/13/21 10/30/21 sirolimus 1 mg tablet 1 mg PO DAILY tab 02/13/21 10/30/21 levothyroxine 125 mcg tablet 250 mcg PO DAILY #180 tab-cap 04/22/21 10/30/21 (Synthroid) magnesium oxide 400 mg (241.3 mg 800 mg PO BID tab 04/29/21 10/30/21 magnesium) tablet tizanidine 2 mg tablet 2 mg PO TID PRN #20 tab 04/30/21 10/30/21 amoxicillin 875 mg-potassium 1 tab PO BID 7 Days #14 tab 10/30/21 clavulanate 125 mg tablet Previous Rx's Medication Instructions Recorded sildenafil 100 mg tablet (Viagra) 25 - 100 mg PO ONCE #7 tab 05/18/18 hydrochlorothiazide 25 mg tablet 25 mg PO QAM #90 tab 02/13/21 levothyroxine 125 mcg tablet 250 mcg PO DAILY #180 tab-cap 04/22/21 (Synthroid) tizanidine 2 mg tablet 2 mg PO TID PRN #20 tab 04/30/21 amoxicillin 875 mg-potassium 1 tab PO BID 7 Days #14 tab 10/30/21 clavulanate 125 mg tablet Allergies Allergy/AdvReac Type Severity Reaction Status Date / Time codeine Allergy Severe THROAT Verified 10/30/21 13:26 SWELLED SHUT amlodipine AdvReac Intermediate periphreal Verified 10/30/21 13:26 edema General Stated Complaint: GI Bleed MAKR: 3 Review of Systems Narrative: Taking medications, no recent illness. Denies abdominal pain. See HPI. 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 CT at [facility] 2016 Obstructive sleep apnea syndrome (Acute) C-PAP Obesity (Acute) Liver transplant status (Acute) 2012 Impaired fasting glucose (Acute) Hypothyroidism (Acute) Gastroesophageal reflux disease (Acute) Diverticulosis of colon without diverticulitis (Acute) Cirrhosis of liver (Acute) Chest pain (Acute) 06/26- NEGATIVE MPI Bleeding esophageal varices (Acute) hemorrhage 07/24 Actinic keratosis (Acute) Surgical History Appendectomy (~1991) Colonoscopy - MAC 2005 2008 LIVER TRANSPLANT (~2012) Family History Mother Neoplasm Lung Father Aneurysm Social History Smoking/Tobacco Use Status: Never Smoking risk assessment performed?: Yes Alcohol Intake: former Drug use: Never Substance use type: does not use Do you feel safe at home: Yes Do you feel safe in your relationship?: Yes Exam Narrative Exam Narrative: GEN: awake, alert, oriented 3. Pleasant, well groomed, interactive. HEAD: Normocephalic, atraumatic ENT: Mucous membranes moist, oropharynx unremarkable, External ear exam unremarkable EYES: PERRL, EOMI NECK: Full ROM, no PRICILA, no menigismus CHEST/RESP: Nontender, clear to auscultation bilateral, no wheeze/rhonchi/rales CARDIOVASCULAR: RRR, no murmur, rub ester. 2+ Rad pulse bilateral ABDOMEN: Soft, nontender, no mass. +Bowel sounds. Rectal exam reveals normal rectal tone, no mass, dark brown to black stool that is guaiac positive EXT: Full ROM, no edema, no rash Neuro: Grossly normal neurologic exam, conversant, interactive. Psych: Speech fluent, thoughts congruent, affect normal Course Vital Signs Vital signs: Vital Signs Temperature 36.8 C 10/30/21 13:22 Pulse 98 H 10/30/21 13:22 Respiratory Rate 16 10/30/21 13:22 Blood Pressure 157/81 H 10/30/21 13:22 Pulse Oximetry 98 10/30/21 13:22 Temperature 36.8 C 10/30/21 13:22 Temperature Source Temporal Artery Scan 10/30/21 13:22 Pulse 98 H 10/30/21 13:22 Respiratory Rate 16 10/30/21 13:22 Respiratory Effort Non-Labored 10/30/21 13:24 Blood Pressure 157/81 H 10/30/21 13:22 Blood Pressure Position Sitting 10/30/21 13:22 Pulse Oximetry 98 10/30/21 13:22 Oxygen Delivery Method Room Air 10/30/21 13:22 Oxygen Flow Rate 0 10/30/21 13:22 Pain Level 0 10/30/21 13:22
[2021-10-30 13:50] LABS: Abs Immature Grans 0.02 10^3/uL (0.0-0.06); Absolute Basophil Count 0.04 10^3/uL (0.0-0.2); Absolute Eosinophil Count 0.14 10^3/uL (0.0-0.7); Absolute Lymphocyte Count 1.34 10^3/uL (1.2-3.4); Absolute Monocyte Count 0.54 10^3/uL (0.1-0.8); Basophils % 0.7; Eosinophils % 2.3; HCT 37.3 % (40.0-50.0); HGB 11.9 g/dL (13.5-17.5); Immature Grans % 0.3; Lymphocytes % 22.4; MCH 27.2 pg (27.0-33.0); MCHC 31.9 % (32.0-36.0); MCV 85.2 fL (80-95); MPV 9.3 fL (8.0-11.0); Neutrophils % 65.3; Nucleated RBC 0 %; Platelet Count 149 10^3/uL (130-400); RBC 4.38 10^6/uL (4.36-5.78); RDW 16.8 % (11.8-14.1); RDW-SD 52.6 fL; WBC 5.98 10^3/uL (4.4-10.8)
[2021-10-30 14:01] LABS: PTT Activated 22.8 sec (21.0-27.5)
[2021-10-30 14:02] LABS: ALT 107 U/L (16-63); AST 51 U/L (15-37); Albumin 4.2 g/dL (3.4-5.0); Alkaline Phosphatase 53 U/L (46-116); Anion Gap 7.1 mmol/L (3-11); BUN 26 mg/dL (7-18); Bilirubin, Total 0.4 mg/dL (0.2-1.0); CO2 29.9 mmol/L (21.0-32.0); CREATININE 1.2 mg/dL (0.70-1.30); Calcium 8.6 mg/dL (8.5-10.1); Chloride 106 mmol/L (98-107); Estimated GFR 59.35 (mL/min/1.73m2); Glucose 139 mg/dL (74-106); Magnesium 2.2 mg/dL (1.8-2.4); Potassium 3.6 mmol/L (3.5-5.1); Sodium 143 mmol/L (136-145); Total Protein 8.1 g/dL (6.4-8.2)
[2021-10-30] MEDS: Omnipaque 350 MG/ML 100 ML BTL IJ (14:20)
[2021-10-30] MEDS: Amoxicillin 875/Clav. 125 TAB PO (15:12)
== END 2021-10-30 15:19 | disposition home or self-care (01) ==
PROVIDERS: Emergency Provider Emergency Medicine; PCP Family Medicine
DX: K92.1 Melena (principal); K57.32 Diverticulitis of large intestine without perforation or abscess without bleeding; K59.00 Constipation, unspecified; R10.9 Unspecified abdominal pain
CPT/HCPCS: 36415; 80053; 99285; 74177; 83735; 85025; 85610; 85730; 99284; J3490

== ENCOUNTER 2021-12-02 01:54 | Outpatient (CLI) | payer MEDICARE, BC, SELFPAY ==
[2021-12-02 07:51] LABS: Abs Immature Grans 0.01 10^3/uL (0.0-0.06); Absolute Basophil Count 0.05 10^3/uL (0.0-0.2); Absolute Eosinophil Count 0.22 10^3/uL (0.0-0.7); Absolute Lymphocyte Count 1.83 10^3/uL (1.2-3.4); Absolute Monocyte Count 0.51 10^3/uL (0.1-0.8); Absolute Neutrophil Count 2.68 10^3/uL (1.2-6.7); Basophils % 0.9; Eosinophils % 4.2; HCT 41.3 % (40.0-50.0); HGB 13.1 g/dL (13.5-17.5); Immature Grans % 0.2; Lymphocytes % 34.5; MCH 27.2 pg (27.0-33.0); MCHC 31.7 % (32.0-36.0); MCV 85.9 fL (80-95); Monocytes % 9.6; Neutrophils % 50.6; Platelet Count 134 10^3/uL (130-400); RBC 4.81 10^6/uL (4.36-5.78); RDW 14.6 % (11.8-14.1)
[2021-12-02 08:30] LABS: COMMENT (LAB VIEW ONLY) 202.37 mg/dL; PROTEIN 16.5 mg/dL; Prot/Crea Ur Ratio 0.08
[2021-12-02 08:58] LABS: ALT 115 U/L (16-63); AST 50 U/L (15-37); Alkaline Phosphatase 52 U/L (46-116); Anion Gap 9.4 mmol/L (3-11); BUN 16 mg/dL (7-18); Bilirubin, Direct 0.1 mg/dL (0.0-0.2); Bilirubin, Total 0.5 mg/dL (0.2-1.0); CO2 30.6 mmol/L (21.0-32.0); CREATININE 1.3 mg/dL (0.70-1.30); Calcium 8.6 mg/dL (8.5-10.1); Chloride 101 mmol/L (98-107); Estimated GFR 54.11 (mL/min/1.73m2); Glucose 109 mg/dL (74-106); PHOSPHORUS 3.5 mg/dL (2.6-4.7); Potassium 3.9 mmol/L (3.5-5.1); Sodium 141 mmol/L (136-145); Total Protein 7.3 g/dL (6.4-8.2)
[2021-12-03 12:23] LABS: Sirolimus 4.6 ng/mL (See Note)
[2021-12-03 13:49] LABS: Tacrolimus <2.0 ng/mL (See Note)
[2021-12-04 12:36] LABS: SARS-CoV-2 Spike Ab, Interp Positive; SARS-CoV-2 Spike Ab, Quant >250 U/mL
== END 2021-12-02 01:55 | disposition home or self-care (01) ==
PROVIDERS: PCP Family Medicine; Visit Provider Transplant Surgery
DX: Z48.23 Encounter for aftercare following liver transplant (principal); Z79.899 Other long term (current) drug therapy; Z94.4 Liver transplant status
CPT/HCPCS: 36415; 80053; 86769; 80195; 80197; 82248; 82565; 83735; 84100; 84156; 85025

== ENCOUNTER 2021-12-15 02:28 | Outpatient (CLI) | payer MEDICARE, BC, SELFPAY ==
[2021-12-15 07:31] LABS: Abs Immature Grans 0.02 10^3/uL (0.0-0.06); Absolute Basophil Count 0.04 10^3/uL (0.0-0.2); Absolute Eosinophil Count 0.21 10^3/uL (0.0-0.7); Absolute Lymphocyte Count 2.03 10^3/uL (1.2-3.4); Absolute Monocyte Count 0.56 10^3/uL (0.1-0.8); Absolute Neutrophil Count 2.67 10^3/uL (1.2-6.7); Basophils % 0.7; Eosinophils % 3.8; HGB 13.3 g/dL (13.5-17.5); Immature Grans % 0.4; Lymphocytes % 36.7; MCH 27.3 pg (27.0-33.0); MCHC 31.7 % (32.0-36.0); MCV 86 fL (80-95); MPV 9.6 fL (8.0-11.0); Monocytes % 10.1; Neutrophils % 48.3; Platelet Count 132 10^3/uL (130-400); RBC 4.87 10^6/uL (4.36-5.78); RDW 14.4 % (11.8-14.1); RDW-SD 45.5 fL; WBC 5.53 10^3/uL (4.4-10.8)
[2021-12-15 09:25] LABS: ALT 129 U/L (16-63); AST 68 U/L (15-37); Alkaline Phosphatase 56 U/L (46-116); Anion Gap 9.9 mmol/L (3-11); BUN 18 mg/dL (7-18); Bilirubin, Direct 0.1 mg/dL (0.0-0.2); Bilirubin, Total 0.4 mg/dL (0.2-1.0); CO2 29.1 mmol/L (21.0-32.0); CREATININE 1.4 mg/dL (0.70-1.30); Calcium 8.2 mg/dL (8.5-10.1); Chloride 103 mmol/L (98-107); Estimated GFR 49.68 (mL/min/1.73m2); Glucose 107 mg/dL (74-106); Magnesium 2.2 mg/dL (1.8-2.4); Potassium 3.9 mmol/L (3.5-5.1); Sodium 142 mmol/L (136-145); Total Protein 7.2 g/dL (6.4-8.2)
[2021-12-15 11:41] LABS: PHOSPHORUS 3.6 mg/dL (2.6-4.7)
[2021-12-17 12:51] LABS: Sirolimus 4.9 ng/mL (See Note)
== END 2021-12-15 02:29 | disposition home or self-care (01) ==
LOC: LBO 02:28
PROVIDERS: PCP Family Medicine; Visit Provider Transplant Surgery
DX: Z94.4 Liver transplant status (principal); Z79.899 Other long term (current) drug therapy; Z48.23 Encounter for aftercare following liver transplant
CPT/HCPCS: 36415; 80053; 80195; 82248; 83735; 84100; 85025

== ENCOUNTER 2022-02-27 01:34 | Outpatient (CLI) | payer MEDICARE, BC, SELFPAY ==
[2022-02-27 07:46] LABS: Abs Immature Grans 0.03 10^3/uL (0.0-0.06); Absolute Basophil Count 0.04 10^3/uL (0.0-0.2); Absolute Eosinophil Count 0.27 10^3/uL (0.0-0.7); Absolute Lymphocyte Count 2.14 10^3/uL (1.2-3.4); Absolute Monocyte Count 0.61 10^3/uL (0.1-0.8); Absolute Neutrophil Count 3.06 10^3/uL (1.2-6.7); Basophils % 0.7; Eosinophils % 4.4; HCT 41.8 % (40.0-50.0); HGB 13.6 g/dL (13.5-17.5); Immature Grans % 0.5; Lymphocytes % 34.8; MCH 26.6 pg (27.0-33.0); MCHC 32.5 % (32.0-36.0); MCV 82 fL (80-95); MPV 9.8 fL (8.0-11.0); Monocytes % 9.9; Neutrophils % 49.7; Platelet Count 130 10^3/uL (130-400); RBC 5.11 10^6/uL (4.36-5.78); RDW 14.3 % (11.8-14.1); RDW-SD 42.3 fL; WBC 6.15 10^3/uL (4.4-10.8)
[2022-02-27 08:43] LABS: ALT 115 U/L (16-63); AST 51 U/L (15-37); Albumin 3.8 g/dL (3.4-5.0); Alkaline Phosphatase 50 U/L (46-116); Anion Gap 7.5 mmol/L (3-11); BUN 21 mg/dL (7-18); Bilirubin, Total 0.4 mg/dL (0.2-1.0); CO2 30.5 mmol/L (21.0-32.0); CREATININE 1.2 mg/dL (0.70-1.30); Calcium 8.3 mg/dL (8.5-10.1); Chloride 102 mmol/L (98-107); Estimated GFR 59.35 (mL/min/1.73m2); Glucose 114 mg/dL (74-106); Magnesium 2.1 mg/dL (1.8-2.4); PHOSPHORUS 3.2 mg/dL (2.6-4.7); Potassium 3.5 mmol/L (3.5-5.1); Sodium 140 mmol/L (136-145); Total Protein 7.6 g/dL (6.4-8.2)
[2022-02-27 14:19] LABS: Bilirubin, Direct 0.1 mg/dL (0.0-0.2)
[2022-03-02 12:05] LABS: Sirolimus 4.5 ng/mL (See Note)
== END 2022-02-27 01:35 | disposition home or self-care (01) ==
PROVIDERS: Internal Medicine; PCP Family Medicine; Visit Provider Transplant Surgery
DX: Z94.4 Liver transplant status (principal); Z79.899 Other long term (current) drug therapy; Z48.23 Encounter for aftercare following liver transplant
CPT/HCPCS: 36415; 80053; 80195; 82248; 83735; 84100; 85025

== ENCOUNTER 2022-03-20 17:32 | Observation (INO) | payer MEDICARE, BC, SELFPAY ==
[2022-03-20] VITALS (27 sets, daily range): BP systolic 101–153; BP diastolic 55–113; PULSE 91–113; RESP 15–27; TEMP 37.7–37.9; O2SAT 89–98
--- NOTE | 2022-03-20 17:30 | DI.CT_ITS ---
Exam(s) CT CHEST/ABD/PEL WO EXAM: CT CHEST/ABD/PEL WO CLINICAL HISTORY: s/p endoscopy/colonscopy, rigors, pain. TECHNIQUE: Imaging Protocol: Axial computed tomography images with coronal and sagittal reformatted images were created and reviewed CONTRAST MATERIAL: Intravenous: Omnipaque 350 Contrast volume:100 ml Oral: no COMPARISON: CT CT ABDOMEN PELVIS W from 10/30/2021 FINDINGS: CHEST: Tracheobronchial tree: Patent where visualized. Mediastinum and Gail: No dominant adenopathy or fluid collection. Pulmonary parenchyma: Peripheral fibrotic changes and honeycombing greater at the lung bases. Super imposed ground-glass opacities scattered in left upper and lower lobes. No consolidation or dominant measurable mass. Pleura: No effusion or pneumothorax. Lymph nodes: Within normal limits. Aorta: Thoracic portion non-dilated. Heart: Normal size. Mild coronary artery calcifications. Bones: Extensive flowing osteophytes. No lytic or blastic lesions. ABDOMEN: Liver: Normal density. No measurable mass. Gallbladder and biliary tract: Stable pneumobilia. No radiodense calculus or dilation. Pancreas: Normal density, no abnormal calcifications or inflammatory process. Spleen: Normal. Kidneys: Normal size, contour and axis. No radiodense stones or obstructive uropathy. No masses seen. Adrenal glands: No masses seen. Aorta: Abdominal portion non-dilated. Lymph nodes: Within normal limits. Soft tissues: Unremarkable. Stomach and small bowel: Metallic densities seen in stomach. Clinical correlation is recommended. S mall bowel unremarkable. PELVIS: Bladder: Symmetric distention, no gross wall thickening. Colon diverticulosis: No obstruction or bowel wall thickening. Peritoneal cavity: No ascites, collection or mesenteric inflammatory response. Soft tissues: Bilatera l fatty containing inguinal hernias, right greater than left. Bones: Degenerative changes with extensive flowing osteophytes and prominent facet degenerative loza es. Reproductive organs: Within normal limits. IMPRESSION: Patchy infiltrates in the left upper and lower lobes, infectious versus inflammatory. Underlying fib rotic changes. Stable pneumobilia. No acute abnormality in the abdomen or pelvis.. RADIATION DOSE DELIVERED: 1,448.59mGy.cm Total DLP DATA REPOSITORY: All CT scans at this facility are submitted to the National Radiology Data Registry (NRDR) Dose Index Registry (DIR) with the [employer] (ACR). RADIATION OPTIMIZATION: All CT scans at this facility use at least one of these dose optimization te chniques: automated exposure control; mA and/or kV adjustment per patient size (includes targeted exa ms where dose is matched to clinical indication); or iterative reconstruction.
--- NOTE | 2022-03-20 17:45 | RT.EKG_ITS ---
APPROVED REPORT Exam: Resting ECG Reason for Exam: weakness Patient Location: E HR:99 bpm ECG Measurements Heart Rate 99 AXIS AK 160 P 20 QRSd 165 QRS -91 QT 381 T 13 QTc 489 Conclusion Sinus rhythm...normal P axis, V-rate 60- 99 RBBB and LAFB...QRSd >120mS, axis(-40,240)
[2022-03-20] MEDS: Normal Saline 1,000 ML 1000 ML IV (18:30)
[2022-03-20 19:29] LABS: Lactate 1.5 mmol/L (0.6-1.4)
[2022-03-20 19:44] LABS: Abs Immature Grans 0.03 10^3/uL (0.0-0.06); Absolute Basophil Count 0.02 10^3/uL (0.0-0.2); Absolute Eosinophil Count 0.07 10^3/uL (0.0-0.7); Absolute Lymphocyte Count 1.13 10^3/uL (1.2-3.4); Absolute Monocyte Count 0.75 10^3/uL (0.1-0.8); Absolute Neutrophil Count 8.41 10^3/uL (1.2-6.7); Basophils % 0.2; Eosinophils % 0.7; HCT 41.7 % (40.0-50.0); HGB 14.1 g/dL (13.5-17.5); Immature Grans % 0.3; Lymphocytes % 10.9; MCH 27.4 pg (27.0-33.0); MCHC 33.8 % (32.0-36.0); MCV 81 fL (80-95); MPV 10.1 fL (8.0-11.0); Monocytes % 7.2; Neutrophils % 80.7; Platelet Count 142 10^3/uL (130-400); RBC 5.14 10^6/uL (4.36-5.78); RDW-SD 43.7 fL; WBC 10.41 10^3/uL (4.4-10.8)
[2022-03-20 19:48] LABS: ALT 131 U/L (16-63); AST 59 U/L (15-37); Albumin 3.9 g/dL (3.4-5.0); Alkaline Phosphatase 53 U/L (46-116); Anion Gap 5.3 mmol/L (3-11); BUN 16 mg/dL (7-18); Bilirubin, Total 0.7 mg/dL (0.2-1.0); CO2 32.7 mmol/L (21.0-32.0); CREATININE 1.2 mg/dL (0.70-1.30); Calcium 8.7 mg/dL (8.5-10.1); Chloride 97 mmol/L (98-107); Estimated GFR 59.35 (mL/min/1.73m2); Glucose 107 mg/dL (74-106); Lipase 43 U/L (73-393); Potassium 3.4 mmol/L (3.5-5.1); Sodium 135 mmol/L (136-145); Total Protein 7.7 g/dL (6.4-8.2)
[2022-03-20 19:52] LABS: INR 1.1 (0.9-1.1); Prothrombin Time 10.6 sec (9.3-11.0)
--- NOTE | 2022-03-20 20:22 | DI.VRAD_ITS ---
PROCEDURE INFORMATION: Exam: CT Chest Without Contrast; Diagnostic Exam date and time: 03/20/2022 7:23 PM Age: 71 years old Clinical indication: Fever; Other: Rigors TECHNIQUE: Imaging protocol: Diagnostic computed tomography of the chest without contrast. COMPARISON: CT ABDOMEN PELVIS W 10/30/2021 2:15 PM FINDINGS: Lungs: Mild panlobular emphysematous changes. Patchy opacities in the lingula and both lower lobes may represent atelectasis or pneumonia.. Pleural spaces: Unremarkable. No pneumothorax. No pleural effusion. Heart: Unremarkable. No cardiomegaly. No pericardial effusion. Lymph nodes: Unremarkable. No enlarged lymph nodes. Vasculature: Unremarkable. No aortic aneurysm. Bones/joints: Unremarkable. No acute fracture. Soft tissues: Unremarkable. IMPRESSION: Patchy opacities in the lingula and both lower lobes may represent atelectasis or pneumonia.. PROCEDURE INFORMATION: Exam: CT Abdomen And Pelvis Without Contrast Exam date and time: 03/20/2022 7:23 PM Age: 71 years old Clinical indication: Fever; Other: Rigors TECHNIQUE: Imaging protocol: Computed tomography of the abdomen and pelvis without contrast. COMPARISON: CT ABDOMEN PELVIS W 10/30/2021 2:15 PM FINDINGS: Liver: Normal. No mass. Gallbladder and bile ducts: Pneumobilia Pancreas: Normal. No ductal dilation. Spleen: Normal. No splenomegaly. Adrenal glands: Normal. No mass. Kidneys and ureters: Normal. No hydronephrosis. Stomach and bowel: Diverticulosis of the rectosigmoid. No aliya diverticulitis.. Appendix: No evidence of appendicitis. Intraperitoneal space: Unremarkable. No free air. No significant fluid collection. Vasculature: Unremarkable. No abdominal aortic aneurysm. Lymph nodes: Unremarkable. No enlarged lymph nodes. Urinary bladder: Unremarkable as visualized. Reproductive: Unremarkable as visualized. Bones/joints: Unremarkable. No acute fracture. Soft tissues: Bilateral inguinal hernias contain fat IMPRESSION: Diverticulosis of the rectosigmoid. No aliya diverticulitis.. Dictated and Authenticated by: Carito Ortiz MD. Ordering:YOSVANY Stokes MD
[2022-03-20 20:38] LABS: Bilirubin Negative (Negative); Blood Small (Negative); Clarity Clear (Clear); Glucose Negative (Negative); Ketones Negative (Negative); Leukocyte Esterase Negative (Negative); Nitrite Negative (Negative); Specific Gravity 1.015 (1.005-1.025); Urobilinogen 0.2 EU/dL (Up TO 0.2); pH 6.5 (5-8)
[2022-03-20] MEDS: cefTRIAXone 2 GM/50 ML BAG IVPB (20:48)
[2022-03-20 20:50] LABS: Bacteria Negative HPF (Negative); C & S Indicated? No; Crystals Negative HPF (Negative); Epithelial Cells Negative HPF (Negative); Mucus Negative (Negative); WBC Negative HPF (0-5)
[2022-03-20 21:09] LABS: COVID-19 PCR Negative (Negative); Influenza A PCR Negative (Negative); Influenza B PCR Negative (Negative); RSV PCR Negative (Negative)
[2022-03-20 21:17] LABS: Source Nasopharynx
[2022-03-20] MEDS: PIPERACILLIN/TAZO 3.375 GM in Normal Saline 50 ML IVPB (22:00)
--- NOTE | 2022-03-20 22:04 | W.ED.GENAD ---
Discharge Plan Disposition Patient Disposition: [facility] INPATIENT Condition: Serious Discharge Details Clinical Impression: Liver transplant status, Pneumonia, Fever Primary Care Provider: Laci Fernandez ED Provider: Divya Kim Home Meds and New Rx's Prescriptions: No Action cholecalciferol (vitamin D3) 2,000 unit capsule 4,000 unit PO DAILY sildenafil [Viagra] 100 mg tablet 25 - 100 mg PO ONCE Qty: 7 4RF Rx Instructions: administer 30 minutes to 4 hours before activity pravastatin 40 mg tablet 40 mg PO DAILY omega-3 fatty acids-fish oil [Fish Oil] 360-1,200 mg capsule 2 cap PO TID levothyroxine [Synthroid] 125 mcg tablet 250 mcg PO DAILY Qty: 180 3RF magnesium oxide 400 mg (241.3 mg magnesium) tablet 400 mg PO BID prednisone 2.5 mg tablet 2.5 mg PO DAILY Label Comments: per [facility] sirolimus 1 mg tablet 1 mg PO DAILY Label Comments: per [facility] cetirizine [Zyrtec] 10 MG tablet 10 mg PO DAILY PRN acetaminophen [Acetaminophen Extra Strength] 500 MG tablet 2 tab PO BID PRN aspirin [Aspir-81] 81 MG tablet,delayed release (DR/EC) 81 mg PO DAILY Label Comments: 01/08/16 TAKING 2 TABS UNTIL 01/13 THEN BACK TO 1 TAB DAILY. md omeprazole 20 MG capsule,delayed release(DR/EC) 20 mg PO DAILY [id number] ac 1 EACH capsule 1 ea PO BID zinc sulfate [Zinc-220] 220 MG capsule 220 mg PO DAILY multivitamin [Daily Multi-Vitamin] 1 EACH tablet 1 ea PO Vitron-C 1 EACH tablet,delayed release (DR/EC) 1 ea PO DAILY cod liver oil 1 EACH capsule 1 ea PO DAILY tizanidine 2 mg tablet 2 mg PO TID PRN (Reason: muscle spasticity) Qty: 20 0RF hydrochlorothiazide 25 mg tablet 25 mg PO QAM Qty: 90 3RF Medical Decision Making Patient given ceftriaxone initially upon assessment of tachycardia, fever, and immunocompromise state CT shows evidence of bilateral patchy infiltrates to lower lobes No acute abdominal process noted Neurologically intact quite positive. Remains tachycardic, no leukocytosis Concern for rash on right forearm with immunocompromise state, spoke with [employer]oc operations intelligence chief at [facility] of concern for possible monkey proximal presentation and swab were sent I have low suspicion that this is likely proximal, however in the presence of fever and rash we will send this for testing and maintain patient on contact precautions Given patient's transplant history, I spoke with the transplant team, Dr. Alicea at [facility] and they recommend admission for observation and Zosyn Zosyn was administered Case discussed with Dr. Eagle who will admit patient to his service Patient meets hospice criteria with tachycardia, temp greater than 100.4, and source of likely pneumonia Medical Records Medical records reviewed: Yes I reviewed the patient's medical records. Lab Data Lab results reviewed: Yes I reviewed the patient's lab results. HPI General Date/Time Provider Initiated Documentation: 03/20/22 17:40. HPI Narrative: This 71-year-old gentleman with history of liver transplant in 2012, obstructive sleep apnea, diverticulosis, esophageal varices presents with report of fever, rigors, chills, but started while patient was driving home from endoscopy and colonoscopy at [facility]. He had a band placed around an aneurysm reportedly. He felt well but tired after this procedure. His symptoms came on suddenly. He denies any cough, shortness of breath, chest pain. He denies any symptoms prior to the procedure. He denies any known COVID exposures. Denies any urinary symptoms. Uneventful conscious sedation and procedure for patient and . Related Data Home Medications Medication Instructions Recorded Confirmed acetaminophen 500 mg tablet 2 tab PO BID PRN 01/31/13 03/20/22 (Acetaminophen Extra Strength) cetirizine 10 mg tablet (Zyrtec) 10 mg PO DAILY PRN 01/31/13 03/20/22 aspirin 81 mg tablet,delayed 81 mg PO DAILY 02/07/13 03/20/22 release (Aspir-) omeprazole 20 mg capsule,delayed 20 mg PO DAILY 06/07/13 03/20/22 release glucosamin 375 mg-chond 300 1 ea PO BID 02/07/14 03/20/22 mg-collagen 50 mg-hyaluronic acid 2 mg cap zinc sulfate 50 mg zinc (220 mg) 220 mg PO DAILY 02/07/14 03/20/22 capsule (Zinc-220) multivitamin (Daily Multi-Vitamin 1 ea PO 07/31/14 03/19/22 tablet) iron,carbonyl 65 mg-vitamin C 125 1 ea PO DAILY 05/08/16 03/20/22 mg tablet,delayed release (Vitron-C) cod liver oil 1 ea PO DAILY 11/10/16 03/20/22 cholecalciferol (vitamin D3) 50 4,000 unit PO DAILY 05/18/18 03/20/22 mcg (2,000 unit) capsule sildenafil 100 mg tablet (Viagra) 25 - 100 mg PO ONCE #7 tabs 05/18/18 03/20/22 pravastatin 40 mg tablet 40 mg PO DAILY 09/30/18 03/20/22 omega-3 fatty acids-fish oil 360 2 cap PO TID 06/25/20 03/20/22 mg-1,200 mg capsule (Fish Oil) prednisone 2.5 mg tablet 2.5 mg PO DAILY 02/13/21 03/20/22 sirolimus 1 mg tablet 1 mg PO DAILY 02/13/21 03/20/22 tizanidine 2 mg tablet 2 mg PO TID PRN muscle spasticity 04/30/21 03/20/22 #20 tabs hydrochlorothiazide 25 mg tablet 25 mg PO QAM #90 tabs 01/19/22 03/20/22 levothyroxine 125 mcg tablet 250 mcg PO DAILY #180 tab-caps 03/19/22 03/20/22 (Synthroid) magnesium oxide 400 mg (241.3 mg 400 mg PO BID 03/19/22 03/20/22 magnesium) tablet Previous Rx's Medication Instructions Recorded sildenafil 100 mg tablet (Viagra) 25 - 100 mg PO ONCE #7 tabs 05/18/18 tizanidine 2 mg tablet 2 mg PO TID PRN muscle spasticity 04/30/21 #20 tabs hydrochlorothiazide 25 mg tablet 25 mg PO QAM #90 tabs 01/19/22 levothyroxine 125 mcg tablet 250 mcg PO DAILY #180 tab-caps 03/19/22 (Synthroid) Allergies Allergy/AdvReac Type Severity Reaction Status Date / Time codeine Allergy Severe THROAT Verified 03/20/22 17:41 SWELLED SHUT amlodipine AdvReac Intermediate periphreal Verified 03/20/22 17:41 edema General Stated Complaint: Fever MARK: 3 Review of Systems All systems reviewed & are unremarkable except as noted in HPI and below PFSH All Active Problems (Updated 03/20/22 @ 22:11 by DALTON Lamas) Pneumonia (Acute) Fever (Acute) Left leg weakness (Acute) 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 CT at [facility] 2016 Obstructive sleep apnea syndrome (Acute) C-PAP Obesity (Acute) Liver transplant status (Acute) 2012 Impaired fasting glucose (Acute) Hypothyroidism (Acute) Gastroesophageal reflux disease (Acute) Diverticulosis of colon without diverticulitis (Acute) Cirrhosis of liver (Acute) Chest pain (Acute) 06/26- NEGATIVE MPI Bleeding esophageal varices (Acute) hemorrhage 07/24 Actinic keratosis (Acute) Surgical History Appendectomy (~1991) Colonoscopy - MAC 2005 2008 LIVER TRANSPLANT (~2012) Family History Mother Neoplasm Lung Father Aneurysm Social History Smoking/Tobacco Use Status: Never Smoking risk assessment performed?: Yes Alcohol Intake: former Drug use: Never Substance use type: does not use Do you feel safe at home: Yes Do you feel safe in your relationship?: Yes Exam Const General: cooperative, comfortable and no acute distress HENMT Head: normal to inspection Eyes Pupils: PERRL Neck Other: No meningismus Resp Effort & Inspection: normal respiratory effort Auscultation: clear to auscultation bilaterally Cardio Rate: regular rate Rhythm: regular rhythm GI Inspection: normal to inspection Other: Nontender abdominal exam Skin Other: Small area of purpura on right forearm along the volar aspect of Papule Neuro General: patient alert, patient oriented x3 and no focal motor deficits Extrem Other: Petechial-like rash noted to right inner calf Neurovascularly intact, 1+ edema to bilateral lower extremities Course Vital Signs Vital signs: Vital Signs Temperature 37.9 C H 03/20/22 17:37 Pulse 111 H 03/20/22 17:37 Respiratory Rate 18 03/20/22 17:37 Blood Pressure 153/113 H 03/20/22 17:37 Pulse Oximetry 95 03/20/22 17:37 Temperature 37.9 C H 03/20/22 17:37 Temperature Source Temporal Artery Scan 03/20/22 17:37 Pulse 111 H 03/20/22 17:37 Respiratory Rate 18 03/20/22 17:37 Respiratory Effort Non-Labored 03/20/22 17:41 Blood Pressure 153/113 H 03/20/22 17:37 Pulse Oximetry 95 03/20/22 17:37 Oxygen Delivery Method Room Air 03/20/22 17:37 Oxygen Flow Rate 0 03/20/22 17:37 Lab/Test Results Lab/Test Results: 03/20/22 17:42 Blood Blood Culture - Pending 03/20/22 17:42 Blood Blood Culture - Pending Laboratory Tests Range/Units 03/20/22 03/20/22 03/20/22 19:00 19:00 19:18 WBC Cancelled RBC Cancelled Hgb Cancelled Hct Cancelled MCV Cancelled MCH Cancelled MCHC Cancelled RDW Cancelled Plt Count Cancelled MPV Cancelled Immature Gran % Cancelled Neutrophils % Cancelled Band Neutrophils % Cancelled Lymphocytes % Cancelled Atypical Lymphs % Cancelled Monocytes % Cancelled Eosinophils % Cancelled Basophils % Cancelled Metamyelocytes % Cancelled Myelocytes % Cancelled Promyelocytes % Cancelled Other Cells % Cancelled Nucleated RBC % Cancelled Absolute Neutrophils Cancelled Absolute Lymphocytes Cancelled Absolute Monocytes Cancelled Absolute Eosinophils Cancelled Absolute Basophils Cancelled RBC Morphology Cancelled Polychromasia Cancelled Hypochromasia Cancelled Poikilocytosis Cancelled Basophilic Stippling Cancelled Anisocytosis Cancelled Microcytosis Cancelled Macrocytosis Cancelled Spherocytes Cancelled Tear Drop Cells Cancelled Ovalocytes Cancelled Stomatocytes Cancelled [place] Bodies Cancelled Spring Cells/Echinocytes Cancelled Acanthocytes (Spur) Cancelled Schistocytes Cancelled PT (9.3-11.0) sec INR (0.9-1.1) VBG Lactate (0.6-1.4) mmol/L 1.5 H Sodium (136-145) mmol/L 135 L Potassium (3.5-5.1) mmol/L 3.4 L Chloride (98-107) mmol/L 97 L Carbon Dioxide (21.0-32.0) mmol/L 32.7 H Anion Gap (3-11) mmol/L 5.3 BUN (7-18) mg/dL 16 Creatinine (0.70-1.30) mg/dL 1.2 Estimated GFR/1.73 m2 (mL/min/1.73m2) 59.35 Glucose (74-106) mg/dL 107 H Calcium (8.5-10.1) mg/dL 8.7 Total Bilirubin (0.2-1.0) mg/dL 0.7 AST (15-37) U/L 59 H ALT (16-63) U/L 131 H Alkaline Phosphatase (46-116) U/L 53 Total Protein (6.4-8.2) g/dL 7.7 Albumin (3.4-5.0) g/dL 3.9 Lipase (73-393) U/L 43 Urine Color (Yellow) Urine Clarity (Clear) Urine pH (5-8) Ur Specific [place] (1.005-1.025) Urine Protein (Negative) mg/dL Urine Ketones (Negative) mg/dL Urine Blood (Negative) Urine Nitrite (Negative) Urine Bilirubin (Negative) Urine Urobilinogen (Up TO 0.2) EU/dL Ur Leukocyte Esterase (Negative) Urine RBC (0-2) HPF Urine WBC (0-5) HPF Ur Epithelial Cells (Negative) HPF Urine Crystals (Negative) HPF Urine Bacteria (Negative) HPF Urine Mucus (Negative) Ur Culture Indicated? Urine Glucose (Negative) mg/dL COVID-19 Source SARS-CoV-2 (PCR) (Negative) Influenza Type A (PCR) (Negative) Influenza Type B (PCR) (Negative) RSV (PCR) (Negative) Range/Units 03/20/22 03/20/22 03/20/22 19:18 19:18 20:00 WBC 10.41 RBC 5.14 Hgb 14.1 Hct 41.7 MCV 81 MCH 27.4 MCHC 33.8 RDW 15.0 H Plt Count 142 MPV 10.1 Immature Gran % 0.3 Neutrophils % 80.7 Band Neutrophils % Lymphocytes % 10.9 Atypical Lymphs % Monocytes % 7.2 Eosinophils % 0.7 Basophils % 0.2 Metamyelocytes % Myelocytes % Promyelocytes % Other Cells % Nucleated RBC % 0.0 Absolute Neutrophils 8.41 H Absolute Lymphocytes 1.13 L Absolute Monocytes 0.75 Absolute Eosinophils 0.07 Absolute Basophils 0.02 RBC Morphology Polychromasia Hypochromasia Poikilocytosis Basophilic Stippling Anisocytosis Microcytosis Macrocytosis Spherocytes Tear Drop Cells Ovalocytes Stomatocytes [place] Bodies [place] Cells/Echinocytes Acanthocytes (Spur) Schistocytes PT (9.3-11.0) sec 10.6 INR (0.9-1.1) 1.1 VBG Lactate (0.6-1.4) mmol/L Sodium (136-145) mmol/L Potassium (3.5-5.1) mmol/L Chloride (98-107) mmol/L Carbon Dioxide (21.0-32.0) mmol/L Anion Gap (3-11) mmol/L BUN (7-18) mg/dL Creatinine (0.70-1.30) mg/dL Estimated GFR/1.73 m2 (mL/min/1.73m2) Glucose (74-106) mg/dL Calcium (8.5-10.1) mg/dL Total Bilirubin (0.2-1.0) mg/dL AST (15-37) U/L ALT (16-63) U/L Alkaline Phosphatase (46-116) U/L Total Protein (6.4-8.2) g/dL Albumin (3.4-5.0) g/dL Lipase (73-393) U/L Urine Color (Yellow) Urine Clarity (Clear) Urine pH (5-8) Ur Specific [place] (1.005-1.025) Urine Protein (Negative) mg/dL Urine Ketones (Negative) mg/dL Urine Blood (Negative) Urine Nitrite (Negative) Urine Bilirubin (Negative) Urine Urobilinogen (Up TO 0.2) EU/dL Ur Leukocyte Esterase (Negative) Urine RBC (0-2) HPF Urine WBC (0-5) HPF Ur Epithelial Cells (Negative) HPF Urine Crystals (Negative) HPF Urine Bacteria (Negative) HPF Urine Mucus (Negative) Ur Culture Indicated? Urine Glucose (Negative) mg/dL COVID-19 Source Nasopharynx SARS-CoV-2 (PCR) (Negative) Negative Influenza Type A (PCR) (Negative) Negative Influenza Type B (PCR) (Negative) Negative RSV (PCR) (Negative) Negative Range/Units 03/20/22 20:00 WBC RBC Hgb Hct MCV MCH MCHC RDW Plt Count MPV Immature Gran % Neutrophils % Band Neutrophils % Lymphocytes % Atypical Lymphs % Monocytes % Eosinophils % Basophils % Metamyelocytes % Myelocytes % Promyelocytes % Other Cells % Nucleated RBC % Absolute Neutrophils Absolute Lymphocytes Absolute Monocytes Absolute Eosinophils Absolute Basophils RBC Morphology Polychromasia Hypochromasia Poikilocytosis Basophilic Stippling Anisocytosis Microcytosis Macrocytosis Spherocytes Tear Drop Cells Ovalocytes Stomatocytes [place] Bodies [place] Cells/Echinocytes Acanthocytes (Spur) Schistocytes PT (9.3-11.0) sec INR (0.9-1.1) VBG Lactate (0.6-1.4) mmol/L Sodium (136-145) mmol/L Potassium (3.5-5.1) mmol/L Chloride (98-107) mmol/L Carbon Dioxide (21.0-32.0) mmol/L Anion Gap (3-11) mmol/L BUN (7-18) mg/dL Creatinine (0.70-1.30) mg/dL Estimated GFR/1.73 m2 (mL/min/1.73m2) Glucose (74-106) mg/dL Calcium (8.5-10.1) mg/dL Total Bilirubin (0.2-1.0) mg/dL AST (15-37) U/L ALT (16-63) U/L Alkaline Phosphatase (46-116) U/L Total Protein (6.4-8.2) g/dL Albumin (3.4-5.0) g/dL Lipase (73-393) U/L Urine Color (Yellow) Yellow Urine Clarity (Clear) Clear Urine pH (5-8) 6.5 Ur Specific [place] (1.005-1.025) 1.015 Urine Protein (Negative) mg/dL Negative Urine Ketones (Negative) mg/dL Negative Urine Blood (Negative) Small H Urine Nitrite (Negative) Negative Urine Bilirubin (Negative) Negative Urine Urobilinogen (Up TO 0.2) EU/dL 0.2 Ur Leukocyte Esterase (Negative) Negative Urine RBC (0-2) HPF 5-10 H Urine WBC (0-5) HPF Negative Ur Epithelial Cells (Negative) HPF Negative Urine Crystals (Negative) HPF Negative Urine Bacteria (Negative) HPF Negative Urine Mucus (Negative) Negative Ur Culture Indicated? No Urine Glucose (Negative) mg/dL Negative COVID-19 Source SARS-CoV-2 (PCR) (Negative) Influenza Type A (PCR) (Negative) Influenza Type B (PCR) (Negative) RSV (PCR) (Negative)
--- NOTE | 2022-03-20 22:32 | HPE_ITS ---
Date of service: 03/20/22 Time of Service: 22:32 Assessment and Plan Assessment and plan (1) Pneumonia: Start date: 03/20/22 Status: Acute Assessment and plan: This is a 71-year-old gentleman who had a recent procedure the day of presentation to the ED with rigors and fever. He has bilateral infiltrates on CT of the chest and by exam has right lower lobe pneumonia with possible aspiration after procedure. Patient was started on Zosyn which will be savi nued and he could be converted to Augmentin to return home if he stabilizes. He will be admitted for observation and initiation of therapy. He is immunocompromised and if he is not improving clinically he could be continued on IV antibiotics and admitted for full course. Follow-up imaging as indicated. He is a full code. (2) Fever: Start date: 03/20/22 Status: Acute Assessment and plan: Most likely related to pneumonia with no other source identified. Monitor and follow-up on cultures as appropriate. (3) Liver transplant status: Status: Chronic Assessment and plan: Continue outpatient medical therapy for immunosuppression and monitor for decompensation. [facility] can be consulted if needed. History of Present Illness History of Present Illness Chief Complaint: Rigors with fever Narrative: This is a 71-year-old male patient with a history of liver transplant for [place] in 2012 who also has obstructive sleep apnea diverticulosis and esophageal varices in the past prior to transplant recently undergoing endoscopy with EGD which revealed a gastric bleeding lesion which was clipped but no esophageal varices and screening colonoscopy. He had this procedure the day of presentation to the ED. After the procedure he had no cough but at home had rigors and manifestation of fever. He presented to the ED with evaluation revealing probable bilateral lower lobe infiltrates with question of aspiration pneumonia. Dr. Alicea at [facility] was consulted and advised IV antibiotic therapy to cover pneumonia with possible aspiration because of patient's immunocompromise state status post transplant. He was given ceftriaxone initially when he presented with tachycardia, fever and immunocompromise state with CT scan findings of bilateral patchy infiltrates of the lower lobes. The patient's rigors subsided and he was more comfortable on IV antibiotic therapy with Zosyn to be continued. He is a full code. Review of Systems Narrative: 13 point review of systems otherwise unrevealing or stable. 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 CT at [facility] [place] 2016 Obstructive sleep apnea syndrome (Acute) C-PAP Obesity (Acute) Liver transplant status (Chronic) 2012 Impaired fasting glucose (Acute) Hypothyroidism (Acute) Gastroesophageal reflux disease (Acute) Diverticulosis of colon without diverticulitis (Acute) Cirrhosis of liver (Acute) Chest pain (Acute) 06/26- NEGATIVE MPI Bleeding esophageal varices (Acute) hemorrhage 07/24 Actinic keratosis (Acute) Surgical History Appendectomy (~1991) Colonoscopy - MAC 2005 2008 LIVER TRANSPLANT (~2012) Family History Mother Neoplasm Lung Father Aneurysm Social History Smoking/Tobacco Use Status: Never Smoking risk assessment performed?: Yes Alcohol Intake: former Drug use: Never Substance use type: does not use Do you feel safe at home: Yes Do you feel safe in your relationship?: Yes Meds Allergies and Home Medications Allergies Allergy/AdvReac Type Severity Reaction Status Date / Time codeine Allergy Severe THROAT Verified 03/20/22 17:41 SWELLED SHUT amlodipine AdvReac Intermediate periphreal Verified 03/20/22 17:41 edema Home Medications Medication Instructions Recorded Confirmed Type acetaminophen 500 mg tablet 2 tab PO BID PRN 01/31/13 03/20/22 History (Acetaminophen Extra Strength) cetirizine 10 mg tablet (Zyrtec) 10 mg PO DAILY PRN 01/31/13 03/20/22 History aspirin 81 mg tablet,delayed 81 mg PO DAILY 02/07/13 03/20/22 History release (Aspir-) omeprazole 20 mg capsule,delayed 20 mg PO DAILY 06/07/13 03/20/22 History release glucosamin 375 mg-chond 300 1 ea PO BID 02/07/14 03/20/22 History mg-collagen 50 mg-hyaluronic acid 2 mg cap zinc sulfate 50 mg zinc (220 mg) 220 mg PO DAILY 02/07/14 03/20/22 History capsule (Zinc-220) multivitamin (Daily Multi-Vitamin 1 ea PO 07/31/14 03/19/22 History tablet) iron,carbonyl 65 mg-vitamin C 125 1 ea PO DAILY 05/08/16 03/20/22 History mg tablet,delayed release (Vitron-C) cod liver oil 1 ea PO DAILY 11/10/16 03/20/22 History cholecalciferol (vitamin D3) 50 4,000 unit PO DAILY 05/18/18 03/20/22 History mcg (2,000 unit) capsule sildenafil 100 mg tablet (Viagra) 25 - 100 mg PO ONCE #7 tabs 05/18/18 03/20/22 Rx pravastatin 40 mg tablet 40 mg PO DAILY 09/30/18 03/20/22 History omega-3 fatty acids-fish oil 360 2 cap PO TID 06/25/20 03/20/22 History mg-1,200 mg capsule (Fish Oil) prednisone 2.5 mg tablet 2.5 mg PO DAILY 02/13/21 03/20/22 History sirolimus 1 mg tablet 1 mg PO DAILY 02/13/21 03/20/22 History tizanidine 2 mg tablet 2 mg PO TID PRN muscle spasticity 04/30/21 03/20/22 Rx #20 tabs hydrochlorothiazide 25 mg tablet 25 mg PO QAM #90 tabs 01/19/22 03/20/22 Rx levothyroxine 125 mcg tablet 250 mcg PO DAILY #180 tab-caps 03/19/22 03/20/22 Rx (Synthroid) magnesium oxide 400 mg (241.3 mg 400 mg PO BID 03/19/22 03/20/22 History magnesium) tablet Exam Narrative Exam Narrative: General: Patient appears appropriate for age, moderately obese, alert and oriented x3 and in no acute distress. He looks generally deconditioned with his obesity and slightly weaker than his baseline by report. HEENT: Normocephalic, eyes with pupils equal and reactive light symmetrically, extraocular movement intact and sclera anicteric. Oropharynx with moist mucosa. Neck: Supple without JVD. Back: Stooped posture without CVA tenderness. Lungs: Decreased aeration with expiratory raspy rales with tubular breath sounds over the right base with exam of the back lung martinez, aeration with no decreased aeration or rales on the left base. Bronchovesicular breath sounds diffusely. No expiratory wheeze. No rubs. Heart: Regular rate and rhythm with no murmurs gallops appreciated. Abdomen: Obese contour, soft and nontender to palpation with no palpable hepatosplenomegaly. Genitalia/rectal: Exam deferred. Extremity: Without clubbing, cyanosis or grossly pitting edema. Good capillary refill. Skin: Pale, warm and moist with actinic changes over sun exposed areas. Neuro: Cranial nerves II to XII intact, no focalizing motor deficits. No tremor. Psych: Slightly flat affect but normal mood. No abnormal thought processes. Remote and recent memory intact. Results Imaging Imaging Studies: Exam: CT Chest Without Contrast; Diagnostic Exam date and time: 03/20/2022 7:23 PM Age: 71 years old Clinical indication: Fever; Other: Rigors TECHNIQUE: Imaging protocol: Diagnostic computed tomography of the chest without contrast. COMPARISON: CT ABDOMEN PELVIS W 10/30/2021 2:15 PM FINDINGS: Lungs: Mild panlobular emphysematous changes. Patchy opacities in the lingula and both lower lobes may represent atelectasis or pneumonia.. Pleural spaces: Unremarkable. No pneumothorax. No pleural effusion. Heart: Unremarkable. No cardiomegaly. No pericardial effusion. Lymph nodes: Unremarkable. No enlarged lymph nodes. Vasculature: Unremarkable. No aortic aneurysm.? Bones/joints: Unremarkable. No acute fracture. Soft tissues: Unremarkable. IMPRESSION: Patchy opacities in the lingula and both lower lobes may represent atelectasis or pneumonia.. PROCEDURE INFORMATION: Exam: CT Abdomen And Pelvis Without Contrast Exam date and time: 03/20/2022 7:23 PM Age: 71 years old Clinical indication: Fever; Other: Rigors TECHNIQUE: Imaging protocol: Computed tomography of the abdomen and pelvis without contrast. COMPARISON: CT ABDOMEN PELVIS W 10/30/2021 2:15 PM FINDINGS: Liver: Normal. No mass. Gallbladder and bile ducts: Pneumobilia Pancreas: Normal. No ductal dilation. Spleen: Normal. No splenomegaly. Adrenal glands: Normal. No mass. Kidneys and ureters: Normal. No hydronephrosis. Stomach and bowel: Diverticulosis of the rectosigmoid. No aliya diverticulitis.. Appendix: No evidence of appendicitis. Intraperitoneal space: Unremarkable. No free air. No significant fluid collection. Vasculature: Unremarkable. No abdominal aortic aneurysm. Lymph nodes: Unremarkable. No enlarged lymph nodes. Urinary bladder: Unremarkable as visualized. Reproductive: Unremarkable as visualized. Bones/joints: Unremarkable. No acute fracture. Soft tissues: Bilateral inguinal hernias contain fat IMPRESSION: Diverticulosis of the rectosigmoid. No aliya diverticulitis Labs Result diagrams: 03/21/22 07:06 03/20/22 19:00 Labs: Laboratory Results - last 24 hr 03/20/22 03/20/22 03/20/22 19:00 19:00 19:18 WBC Cancelled RBC Cancelled Hgb Cancelled Hct Cancelled MCV Cancelled MCH Cancelled MCHC Cancelled RDW Cancelled Plt Count Cancelled MPV Cancelled Immature Gran % Cancelled Neutrophils % Cancelled Band Neutrophils % Cancelled Lymphocytes % Cancelled Atypical Lymphs % Cancelled Monocytes % Cancelled Eosinophils % Cancelled Basophils % Cancelled Metamyelocytes % Cancelled Myelocytes % Cancelled Promyelocytes % Cancelled Other Cells % Cancelled Nucleated RBC % Cancelled Absolute Neutrophils Cancelled Absolute Lymphocytes Cancelled Absolute Monocytes Cancelled Absolute Eosinophils Cancelled Absolute Basophils Cancelled RBC Morphology Cancelled Polychromasia Cancelled Hypochromasia Cancelled Poikilocytosis Cancelled Basophilic Stippling Cancelled Anisocytosis Cancelled Microcytosis Cancelled Macrocytosis Cancelled Spherocytes Cancelled Tear Drop Cells Cancelled Ovalocytes Cancelled Stomatocytes Cancelled [place] Bodies Cancelled [place] Cells/Echinocytes Cancelled Acanthocytes (Spur) Cancelled Schistocytes Cancelled PT INR VBG Lactate 1.5 H Sodium 135 L Potassium 3.4 L Chloride 97 L Carbon Dioxide 32.7 H Anion Gap 5.3 BUN 16 Creatinine 1.2 Estimated GFR/1.73 m2 59.35 Glucose 107 H Calcium 8.7 Total Bilirubin 0.7 AST 59 H ALT 131 H Alkaline Phosphatase 53 Total Protein 7.7 Albumin 3.9 Lipase 43 Urine Color Urine Clarity Urine pH Ur Specific [place] Urine Protein Urine Ketones Urine Blood Urine Nitrite Urine Bilirubin Urine Urobilinogen Ur Leukocyte Esterase Urine RBC Urine WBC Ur Epithelial Cells Urine Crystals Urine Bacteria Urine Mucus Ur Culture Indicated? Urine Glucose COVID-19 Source SARS-CoV-2 (PCR) Influenza Type A (PCR) Influenza Type B (PCR) RSV (PCR) 03/20/22 03/20/22 03/20/22 19:18 19:18 20:00 WBC 10.41 RBC 5.14 Hgb 14.1 Hct 41.7 MCV 81 MCH 27.4 MCHC 33.8 RDW 15.0 H Plt Count 142 MPV 10.1 Immature Gran % 0.3 Neutrophils % 80.7 Band Neutrophils % Lymphocytes % 10.9 Atypical Lymphs % Monocytes % 7.2 Eosinophils % 0.7 Basophils % 0.2 Metamyelocytes % Myelocytes % Promyelocytes % Other Cells % Nucleated RBC % 0.0 Absolute Neutrophils 8.41 H Absolute Lymphocytes 1.13 L Absolute Monocytes 0.75 Absolute Eosinophils 0.07 Absolute Basophils 0.02 RBC Morphology Polychromasia Hypochromasia Poikilocytosis Basophilic Stippling Anisocytosis Microcytosis Macrocytosis Spherocytes Tear Drop Cells Ovalocytes Stomatocytes [place] Bodies [place] Cells/Echinocytes Acanthocytes (Spur) Schistocytes PT 10.6 INR 1.1 VBG Lactate Sodium Potassium Chloride Carbon Dioxide Anion Gap BUN Creatinine Estimated GFR/1.73 m2 Glucose Calcium Total Bilirubin AST ALT Alkaline Phosphatase Total Protein Albumin Lipase Urine Color Urine Clarity Urine pH Ur Specific [place] Urine Protein Urine Ketones Urine Blood Urine Nitrite Urine Bilirubin Urine Urobilinogen Ur Leukocyte Esterase Urine RBC Urine WBC Ur Epithelial Cells Urine Crystals Urine Bacteria Urine Mucus Ur Culture Indicated? Urine Glucose COVID-19 Source Nasopharynx SARS-CoV-2 (PCR) Negative Influenza Type A (PCR) Negative Influenza Type B (PCR) Negative RSV (PCR) Negative 03/20/22 20:00 WBC RBC Hgb Hct MCV MCH MCHC RDW Plt Count MPV Immature Gran % Neutrophils % Band Neutrophils % Lymphocytes % Atypical Lymphs % Monocytes % Eosinophils % Basophils % Metamyelocytes % Myelocytes % Promyelocytes % Other Cells % Nucleated RBC % Absolute Neutrophils Absolute Lymphocytes Absolute Monocytes Absolute Eosinophils Absolute Basophils RBC Morphology Polychromasia Hypochromasia Poikilocytosis Basophilic Stippling Anisocytosis Microcytosis Macrocytosis Spherocytes Tear Drop Cells Ovalocytes Stomatocytes [place] Bodies [place] Cells/Echinocytes Acanthocytes (Spur) Schistocytes PT INR VBG Lactate Sodium Potassium Chloride Carbon Dioxide Anion Gap BUN Creatinine Estimated GFR/1.73 m2 Glucose Calcium Total Bilirubin AST ALT Alkaline Phosphatase Total Protein Albumin Lipase Urine Color Yellow Urine Clarity Clear Urine pH 6.5 Ur Specific [place] 1.015 Urine Protein Negative Urine Ketones Negative Urine Blood Small H Urine Nitrite Negative Urine Bilirubin Negative Urine Urobilinogen 0.2 Ur Leukocyte Esterase Negative Urine RBC 5-10 H Urine WBC Negative Ur Epithelial Cells Negative Urine Crystals Negative Urine Bacteria Negative Urine Mucus Negative Ur Culture Indicated? No Urine Glucose Negative COVID-19 Source SARS-CoV-2 (PCR) Influenza Type A (PCR) Influenza Type B (PCR) RSV (PCR) Last Vital Signs Temp 37.9 C H 03/20/22 17:37 Pulse 111 H 03/20/22 17:37 Resp 18 03/20/22 17:37 BP 153/113 H 03/20/22 17:37 Pulse Ox 95 03/20/22 17:37
[2022-03-20 22:54] LABS: Kit/Specimen SENT
[2022-03-21] MEDS: Heparin 5,000 UNITS/ML VIAL 5000 UNITS SC ×2 (00:06→06:31)
[2022-03-21] MEDS: POTASSIUM CHLORIDE/0.9% NACL 1,000 ML 125 MEQ IV ×2 (00:07→09:07)
[2022-03-21] MEDS: Potassium Chloride 10 MEQ TABCR PO (00:15)
[2022-03-21 03:41] VITALS: BP 112/63; PULSE 75; RESP 18; TEMP 37; O2SAT 96
[2022-03-21] MEDS: PIPERACILLIN/TAZO 3.375 GM in Normal Saline 50 ML IVPB ×2 (04:38→10:12)
[2022-03-21] MEDS: Levothyroxine 125 MCG TAB 250 MCG PO (06:31)
[2022-03-21] MEDS: Normal Saline Flush 10 ML SYR IVP (06:35)
[2022-03-21 07:18] LABS: Lactate 0.9 mmol/L (0.6-1.4)
[2022-03-21 07:32] VITALS: BP 128/69; PULSE 64; RESP 16; TEMP 37.6; O2SAT 98
[2022-03-21 07:46] LABS: Abs Immature Grans 0.03 10^3/uL (0.0-0.06); Absolute Basophil Count 0.03 10^3/uL (0.0-0.2); Absolute Eosinophil Count 0.16 10^3/uL (0.0-0.7); Absolute Lymphocyte Count 2.09 10^3/uL (1.2-3.4); Absolute Monocyte Count 0.92 10^3/uL (0.1-0.8); Absolute Neutrophil Count 6.54 10^3/uL (1.2-6.7); Basophils % 0.3; Eosinophils % 1.6; HGB 12.6 g/dL (13.5-17.5); Immature Grans % 0.3; Lymphocytes % 21.4; MCH 27.3 pg (27.0-33.0); MCHC 33.2 % (32.0-36.0); MCV 82 fL (80-95); MPV 11.2 fL (8.0-11.0); Monocytes % 9.4; Platelet Count 114 10^3/uL (130-400); RBC 4.62 10^6/uL (4.36-5.78); RDW 15.4 % (11.8-14.1); RDW-SD 45.6 fL; WBC 9.77 10^3/uL (4.4-10.8)
[2022-03-21 08:00] VITALS: PULSE 69
[2022-03-21] MEDS: predniSONE 5 MG TAB 2.5 MG PO (08:30)
[2022-03-21] MEDS: Omeprazole 20 MG CAPCR PO (08:31)
[2022-03-21] MEDS: Zinc Sulfate 220 MG TAB PO (08:31)
[2022-03-21] MEDS: Cholecalciferol (Vitamin D3) 1,000 UNIT TAB 4000 UNITS PO (08:31)
[2022-03-21] MEDS: Aspirin E.C. 81 MG TABEC PO (08:31)
[2022-03-21] MEDS: Magnesium Oxide 400 MG TAB PO (08:32)
[2022-03-21] MEDS: Omega-3 Fatty Acids 1000 MG CAP 2000 MG PO (08:32)
[2022-03-21] MEDS: hydroCHLOROthiazide 25 MG TAB PO (08:32)
--- NOTE | 2022-03-21 08:53 | PDOC.CMIN ---
- If Service Date Differs Date of service: 03/21/22 Time of Service: 08:53 Care Management Initial Assess REASON FOR HOSPITALIZATION:: Pneumonia, fever PAST MEDICAL HISTORY/PAST SURGICAL HISTORY:: All Active Problems . Pneumonia (Acute). Fever (Acute). Left leg weakness (Acute). 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 Right sided sciatica (Acute). Essential hypertension (Acute). History of appendectomy (Acute). Status post total knee replacement (Acute 01/08/16). left knee 11/29 [facility] [place]. Sciatica (Acute). Pulmonary scarring (Acute 01/08/17). RLL. CT at [facility] 2016. Obstructive sleep apnea syndrome (Acute). C-PAP. Obesity (Acute). Liver transplant status (Acute). 2012. Impaired fasting glucose (Acute). Hypothyroidism (Acute). Gastroesophageal reflux disease (Acute). Diverticulosis of colon without diverticulitis (Acute). Cirrhosis of liver (Acute). Chest pain (Acute). 06/26- NEGATIVE MPI. Bleeding esophageal varices (Acute). hemorrhage 07/24. Actinic keratosis (Acute). Surgical History . Appendectomy (~1991). Colonoscopy - MAC. 2005. 2008. LIVER TRANSPLANT (~2012) PREVIOUS FUNCTIONAL STATUS/SOCIAL/FAMILY SUPPORTS:: Bryn live in [facility]. HX liver transplant in 2012. ADVANCE DIRECTIVES:: None on file, CM will offer forms Has patient been provided with info about the portal/API?: Yes Did the patient sign up for the portal?: Yes (Prior to admission) CODE STATUS:: Full Code INSURANCE COVERAGE / FINANCIAL ISSUES:: BS. Medicare PRIMARY CARE PHYSICIAN:: [facility] POTENTIAL DISCHARGE NEEDS:: Follow up appointments, discharge plan of care. PATIENT/FAMILY EDUCATION NEEDS:: Review discharge instructions, limitations, medications and plan to follow up with community providers. ask me three. PLAN:: Anticipate, Bryn will discharge home via private vehicle with friend when medically ready. He will follow up with community providers and discharge plan of care as prescribed.
--- NOTE | 2022-03-21 11:49 | DSE_ITS ---
Date of service: 03/21/22 Time of Service: 11:49 DS: Diagnosis Discharge Diagnosis (1) Pneumonia: Status: Acute (2) Fever: Status: Resolved (3) Liver transplant status: Status: Chronic Discharge Plan Disposition Patient Disposition: HOME Condition: Serious Discharge Details Reason For Visit: Pneumonia Admit Date/Time: 03/20/22 21:27 Admit Provider: Garth Eagle Attending Provider: Garth Eagle Primary Care Provider: Laci Fernandez Hospital Course Hospital Course: This is a 71-year-old male patient with pmhx of liver transplant, EV, diverticulosis and esophagealvaricies who had an EGD procedure @ [facility] just prior to presenting to the [facility] ED complaining of fever with rigors.? He had bilateral infiltrates on CT of the chest and by exam has right lower lobe pneumonia with possible aspiration after a procedure.? The patient was started on Zosyn which was continued and he stabilized, was converted to Augmentin to return home.? He was admitted for observation and initiation of therapy.? He is immunocompromised. He improved through the day, stable vital signs, afebrile and is discharged to home with Augmentin for 5 days. He did not want to remain in the hospital any longer and was well enough to go home. Discussed with Dr Dowling Home Meds and New Rx's Prescriptions: New amoxicillin-pot clavulanate 875-125 mg tablet 1 tab PO BID Qty: 10 0RF Continued cholecalciferol (vitamin D3) 2,000 unit capsule 4,000 unit PO DAILY sildenafil [Viagra] 100 mg tablet 25 - 100 mg PO ONCE Qty: 7 4RF Rx Instructions: administer 30 minutes to 4 hours before activity pravastatin 40 mg tablet 40 mg PO DAILY omega-3 fatty acids-fish oil [Fish Oil] 360-1,200 mg capsule 2 cap PO TID levothyroxine [Synthroid] 125 mcg tablet 250 mcg PO DAILY Qty: 180 3RF magnesium oxide 400 mg (241.3 mg magnesium) tablet 400 mg PO BID prednisone 2.5 mg tablet 2.5 mg PO DAILY Label Comments: per [facility] sirolimus 1 mg tablet 1 mg PO DAILY Label Comments: per [facility] cetirizine [Zyrtec] 10 MG tablet 10 mg PO DAILY PRN acetaminophen [Acetaminophen Extra Strength] 500 MG tablet 2 tab PO BID PRN aspirin [Aspir-81] 81 MG tablet,delayed release (DR/EC) 81 mg PO DAILY Label Comments: 01/08/16 TAKING 2 TABS UNTIL 01/13 THEN BACK TO 1 TAB DAILY. [facility] omeprazole 20 MG capsule,delayed release(DR/EC) 20 mg PO DAILY ggghsxrx-drmv-eorvft-hyalur ac 1 EACH capsule 1 ea PO BID zinc sulfate [Zinc-220] 220 MG capsule 220 mg PO DAILY multivitamin [Daily Multi-Vitamin] 1 EACH tablet 1 ea PO Vitron-C 1 EACH tablet,delayed release (DR/EC) 1 ea PO DAILY cod liver oil 1 EACH capsule 1 ea PO DAILY tizanidine 2 mg tablet 2 mg PO TID PRN (Reason: muscle spasticity) Qty: 20 0RF hydrochlorothiazide 25 mg tablet 25 mg PO QAM Qty: 90 3RF Discharge Instructions Instructions: Acetaminophen (By mouth), Amoxicillin/Clavulanate Potassium (By mouth), Fever in Adults (GEN), Pneumonia (DC) Stand Alone Forms: Nursing Discharge Form Referrals: Laci Fernandez MD [Primary Care Provider] - (Please call Wednesday to make a follow up appointment for 1-2 weeks.) Activity:: Activity as Tolerated Equipment/Supplies:: No Equipment Needed Diet:: Continue current diet Discharge Orders Discharge Orders: Discharge Order (Routine); Ordered 03/21/22 Ordered By: Marsha Duenas Discharge Data Discharge Date/Time-TO BE ENTERED AT DEPARTURE: 03/21/22 13:04 DS: Summary Time Spent with Patient providing and/or coordinating discharge services: Less than 30 minutes Status at Discharge Functional status at discharge: independent ambulation Overall status at discharge: patient is progressing back to baseline Mental Status: mental status grossly normal Speech and Movement: speech and movement normal Mood: congruent mood Affect: normal affect Exam Psych Mental Status: mental status grossly normal Speech and Movement: speech and movement normal Mood: congruent mood Affect: normal affect DS: Data Vitals/I&O Vitals and I&O: Vital Signs Temperature 37.6 C H 03/21/22 07:32 Temperature Source Tympanic 03/21/22 07:32 Pulse 69 03/21/22 08:00 Pulse Rhythm Regular 03/20/22 23:22 Pulse 106 H 03/20/22 22:31 Respiratory Rate 16 03/21/22 07:32 Respiratory Effort 08/05/22 23:22 Respiratory Depth Normal 03/20/22 23:22 Respiratory Pattern Normal 03/20/22 23:22 Blood Pressure 128/69 03/21/22 07:32 Blood Pressure Mean 67 03/20/22 22:30 Pulse Oximetry 98 03/21/22 07:32 Oxygen Delivery Method Room Air 03/21/22 07:32 Oxygen Flow Rate 0 03/21/22 07:32 Pain Level 2 03/21/22 07:32 Intake & Output 03/20/22 03/20/22 03/21/22 11:59 23:59 11:59 Intake Total 1165 / 1165 1380 / 1380 Output Total 1675 / 1675 Balance 1165 / 1165 -295 / -295 Weight 112.491 kg 112.6 kg Intake: IV 1165 / 1165 1100 / 1100 Oral 280 / 280 Output: Urine 1675 / 1675 Other: Urine Color Yellow Urine Appearance Clear Urine Odor None Voiding Methods Urinal Data Completed and Pending Labs on day of discharge: Labs from last 24 hours 03/21/22 03/21/22 03/21/22 07:06 07:06 07:06 WBC 9.77 RBC 4.62 Hgb 12.6 L Hct 38.0 L MCV 82 MCH 27.3 MCHC 33.2 RDW 15.4 H Plt Count 114 L MPV 11.2 H Immature Gran % 0.3 Neutrophils % 67.0 Band Neutrophils % Lymphocytes % 21.4 Atypical Lymphs % Monocytes % 9.4 Eosinophils % 1.6 Basophils % 0.3 Metamyelocytes % Myelocytes % Promyelocytes % Other Cells % Nucleated RBC % 0.0 Absolute Neutrophils 6.54 Absolute Lymphocytes 2.09 Absolute Monocytes 0.92 H Absolute Eosinophils 0.16 Absolute Basophils 0.03 RBC Morphology Polychromasia Hypochromasia Poikilocytosis Basophilic Stippling Anisocytosis Microcytosis Macrocytosis Spherocytes Tear Drop Cells Ovalocytes Stomatocytes [place] Bodies [place] Cells/Echinocytes Acanthocytes (Spur) Schistocytes PT INR VBG Lactate 0.9 Sodium Potassium Chloride Carbon Dioxide Anion Gap BUN Creatinine Estimated GFR/1.73 m2 Glucose Calcium Magnesium 2.0 Total Bilirubin AST ALT Alkaline Phosphatase Total Protein Albumin Lipase TSH 1.30 Urine Color Urine Clarity Urine pH Ur Specific [place] Urine Protein Urine Ketones Urine Blood Urine Nitrite Urine Bilirubin Urine Urobilinogen Ur Leukocyte Esterase Urine RBC Urine WBC Ur Epithelial Cells Urine Crystals Urine Bacteria Urine Mucus Ur Culture Indicated? Urine Glucose COVID-19 Source SARS-CoV-2 (PCR) Influenza Type A (PCR) Influenza Type B (PCR) RSV (PCR) Miscellaneous Test 03/20/22 03/20/22 03/20/22 22:53 20:00 20:00 WBC RBC Hgb Hct MCV MCH MCHC RDW Plt Count MPV Immature Gran % Neutrophils % Band Neutrophils % Lymphocytes % Atypical Lymphs % Monocytes % Eosinophils % Basophils % Metamyelocytes % Myelocytes % Promyelocytes % Other Cells % Nucleated RBC % Absolute Neutrophils Absolute Lymphocytes Absolute Monocytes Absolute Eosinophils Absolute Basophils RBC Morphology Polychromasia Hypochromasia Poikilocytosis Basophilic Stippling Anisocytosis Microcytosis Macrocytosis Spherocytes Tear Drop Cells Ovalocytes Stomatocytes [place] Bodies [place] Cells/Echinocytes Acanthocytes (Spur) Schistocytes PT INR VBG Lactate Sodium Potassium Chloride Carbon Dioxide Anion Gap BUN Creatinine Estimated GFR/1.73 m2 Glucose Calcium Magnesium Total Bilirubin AST ALT Alkaline Phosphatase Total Protein Albumin Lipase TSH Urine Color Yellow Urine Clarity Clear Urine pH 6.5 Ur Specific [place] 1.015 Urine Protein Negative Urine Ketones Negative Urine Blood Small H Urine Nitrite Negative Urine Bilirubin Negative Urine Urobilinogen 0.2 Ur Leukocyte Esterase Negative Urine RBC 5-10 H Urine WBC Negative Ur Epithelial Cells Negative Urine Crystals Negative Urine Bacteria Negative Urine Mucus Negative Ur Culture Indicated? No Urine Glucose Negative COVID-19 Source Nasopharynx SARS-CoV-2 (PCR) Negative Influenza Type A (PCR) Negative Influenza Type B (PCR) Negative RSV (PCR) Negative Miscellaneous Test Pending 03/20/22 03/20/22 03/20/22 19:18 19:18 19:18 WBC 10.41 RBC 5.14 Hgb 14.1 Hct 41.7 MCV 81 MCH 27.4 MCHC 33.8 RDW 15.0 H Plt Count 142 MPV 10.1 Immature Gran % 0.3 Neutrophils % 80.7 Band Neutrophils % Lymphocytes % 10.9 Atypical Lymphs % Monocytes % 7.2 Eosinophils % 0.7 Basophils % 0.2 Metamyelocytes % Myelocytes % Promyelocytes % Other Cells % Nucleated RBC % 0.0 Absolute Neutrophils 8.41 H Absolute Lymphocytes 1.13 L Absolute Monocytes 0.75 Absolute Eosinophils 0.07 Absolute Basophils 0.02 RBC Morphology Polychromasia Hypochromasia Poikilocytosis Basophilic Stippling Anisocytosis Microcytosis Macrocytosis Spherocytes Tear Drop Cells Ovalocytes Stomatocytes [place] Bodies [place] Cells/Echinocytes Acanthocytes (Spur) Schistocytes PT 10.6 INR 1.1 VBG Lactate 1.5 H Sodium Potassium Chloride Carbon Dioxide Anion Gap BUN Creatinine Estimated GFR/1.73 m2 Glucose Calcium Magnesium Total Bilirubin AST ALT Alkaline Phosphatase Total Protein Albumin Lipase TSH Urine Color Urine Clarity Urine pH Ur Specific [place] Urine Protein Urine Ketones Urine Blood Urine Nitrite Urine Bilirubin Urine Urobilinogen Ur Leukocyte Esterase Urine RBC Urine WBC Ur Epithelial Cells Urine Crystals Urine Bacteria Urine Mucus Ur Culture Indicated? Urine Glucose COVID-19 Source SARS-CoV-2 (PCR) Influenza Type A (PCR) Influenza Type B (PCR) RSV (PCR) Miscellaneous Test 03/20/22 03/20/22 19:00 19:00 WBC Cancelled RBC Cancelled Hgb Cancelled Hct Cancelled MCV Cancelled MCH Cancelled MCHC Cancelled RDW Cancelled Plt Count Cancelled MPV Cancelled Immature Gran % Cancelled Neutrophils % Cancelled Band Neutrophils % Cancelled Lymphocytes % Cancelled Atypical Lymphs % Cancelled Monocytes % Cancelled Eosinophils % Cancelled Basophils % Cancelled Metamyelocytes % Cancelled Myelocytes % Cancelled Promyelocytes % Cancelled Other Cells % Cancelled Nucleated RBC % Cancelled Absolute Neutrophils Cancelled Absolute Lymphocytes Cancelled Absolute Monocytes Cancelled Absolute Eosinophils Cancelled Absolute Basophils Cancelled RBC Morphology Cancelled Polychromasia Cancelled Hypochromasia Cancelled Poikilocytosis Cancelled Basophilic Stippling Cancelled Anisocytosis Cancelled Microcytosis Cancelled Macrocytosis Cancelled Spherocytes Cancelled Tear Drop Cells Cancelled Ovalocytes Cancelled Stomatocytes Cancelled [place] Bodies Cancelled [place] Cells/Echinocytes Cancelled Acanthocytes (Spur) Cancelled Schistocytes Cancelled PT INR VBG Lactate Sodium 135 L Potassium 3.4 L Chloride 97 L Carbon Dioxide 32.7 H Anion Gap 5.3 BUN 16 Creatinine 1.2 Estimated GFR/1.73 m2 59.35 Glucose 107 H Calcium 8.7 Magnesium Total Bilirubin 0.7 AST 59 H ALT 131 H Alkaline Phosphatase 53 Total Protein 7.7 Albumin 3.9 Lipase 43 TSH Urine Color Urine Clarity Urine pH Ur Specific [place] Urine Protein Urine Ketones Urine Blood Urine Nitrite Urine Bilirubin Urine Urobilinogen Ur Leukocyte Esterase Urine RBC Urine WBC Ur Epithelial Cells Urine Crystals Urine Bacteria Urine Mucus Ur Culture Indicated? 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 CT at [facility] 2016 Obstructive sleep apnea syndrome (Acute) C-PAP Obesity (Acute) Liver transplant status (Chronic) 2013 Impaired fasting glucose (Acute) Hypothyroidism (Acute) Gastroesophageal reflux disease (Acute) Diverticulosis of colon without diverticulitis (Acute) Cirrhosis of liver (Acute) Chest pain (Acute) 06/26- NEGATIVE MPI Bleeding esophageal varices (Acute) hemorrhage 07/24 Actinic keratosis (Acute) Surgical History Appendectomy (~1991) Colonoscopy - [facility] 2005 2008 LIVER TRANSPLANT (~2012) Family History Mother Neoplasm Lung Father Aneurysm Social History Smoking/Tobacco Use Status: Never Smoking risk assessment performed?: Yes Alcohol Intake: former Drug use: Never Substance use type: does not use Do you feel safe at home: Yes Do you feel safe in your relationship?: Yes
--- NOTE | 2022-03-21 12:13 | PDOC.CMDIS ---
- If Service Date Differs Date of service: 03/21/22 Time of Service: 12:13 LACE Index Scoring Tool - Questions: Length of Stay (in days): 1 Acuity (Admit via E.D.?): Yes Comorbidities: Any Tumor, Liver or Renal Disease E.D. Visits: 2 - Answers: Total Score: 11 Risk of Readmission: High Risk Care Management Discharge Reason for Hospitalization: Pneumonia, fever Discharge Plan: Bryn is discharged home via private vehicle with family. RX for oral ABX is transmitted to [facility]. Bryn will call his PCP office on Wednesday to schedule a follow up visit in the next 1-2 weeks. Patient/Family Education Needs: Review discharge instructions, limitations, medications and plan to follow up with community providers. ask me three.
== END 2022-03-21 13:04 | disposition home or self-care (01) ==
LOC: ER 22:11 → MS 23:13
PROVIDERS: Admitting Provider Family Medicine; Emergency Provider Physician Assistant; PCP Family Medicine; Visit Provider Family Medicine
DX: J18.9 Pneumonia, unspecified organism (principal); Z94.4 Liver transplant status; K57.30 Diverticulosis of large intestine without perforation or abscess without bleeding; J43.1 Panlobular emphysema; R91.8 Other nonspecific abnormal finding of lung field; Z79.899 Other long term (current) drug therapy; D84.821 Immunodeficiency due to drugs; R00.0 Tachycardia, unspecified; G47.33 Obstructive sleep apnea (adult) (pediatric); Z20.822 Contact with and (suspected) exposure to COVID-19; M54.31 Sciatica, right side; I10 Essential (primary) hypertension; Z96.652 Presence of left artificial knee joint; R73.01 Impaired fasting glucose; E03.9 Hypothyroidism, unspecified; K21.9 Gastro-esophageal reflux disease without esophagitis; R21 Rash and other nonspecific skin eruption
CPT/HCPCS: 36415; 71250; 80053; 83690; 87040; 87637; 90471; 93005; 96361; 96365; 96366; 96367; 96375; 96376; 99285; 74176; 81003; 81015; 83605; 83735; 84443; 85025; 85610; 93010; 99217; 99220; G0378; J0131; J1644; J2543; J7512

== ENCOUNTER 2022-06-01 03:34 | Outpatient (CLI) | payer MEDICARE, BC, SELFPAY ==
[2022-06-01 08:07] LABS: Abs Immature Grans 0.01 10^3/uL (0.0-0.06); Absolute Basophil Count 0.05 10^3/uL (0.0-0.2); Absolute Eosinophil Count 0.38 10^3/uL (0.0-0.7); Absolute Lymphocyte Count 2.09 10^3/uL (1.2-3.4); Absolute Monocyte Count 0.66 10^3/uL (0.1-0.8); Absolute Neutrophil Count 3.01 10^3/uL (1.2-6.7); Basophils % 0.8; Eosinophils % 6.1; HCT 42.8 % (40.0-50.0); HGB 14.3 g/dL (13.5-17.5); Immature Grans % 0.2; Lymphocytes % 33.7; MCH 27.6 pg (27.0-33.0); MCHC 33.4 % (32.0-36.0); MCV 83 fL (80-95); MPV 9.6 fL (8.0-11.0); Monocytes % 10.6; Neutrophils % 48.6; Platelet Count 147 10^3/uL (130-400); RBC 5.18 10^6/uL (4.36-5.78); RDW 14.6 % (11.8-14.1); RDW-SD 44.3 fL
[2022-06-01 08:25] LABS: ALT 88 U/L (16-63); AST 50 U/L (15-37); Alkaline Phosphatase 50 U/L (46-116); Anion Gap 8.6 mmol/L (3-11); BUN 21 mg/dL (7-18); Bilirubin, Direct 0.2 mg/dL (0.0-0.2); Bilirubin, Total 0.6 mg/dL (0.2-1.0); CO2 30.4 mmol/L (21.0-32.0); CREATININE 1.3 mg/dL (0.70-1.30); Chloride 102 mmol/L (98-107); Estimated GFR 58.01 (mL/min/1.73m2); Glucose 114 mg/dL (74-106); Magnesium 2.3 mg/dL (1.8-2.4); PHOSPHORUS 3.7 mg/dL (2.6-4.7); Potassium 3.7 mmol/L (3.5-5.1); Sodium 141 mmol/L (136-145); Total Protein 7.9 g/dL (6.4-8.2)
== END 2022-06-01 03:35 | disposition home or self-care (01) ==
PROVIDERS: PCP Family Medicine; Visit Provider Transplant Surgery
DX: Z94.4 Liver transplant status (principal); Z79.899 Other long term (current) drug therapy; Z48.23 Encounter for aftercare following liver transplant
CPT/HCPCS: 36415; 80053; 80195; 82248; 83735; 84100; 85025

== ENCOUNTER 2022-08-31 02:53 | Outpatient (CLI) | payer MEDICARE, BC, SELFPAY ==
[2022-08-31 07:44] LABS: Abs Immature Grans 0.03 10^3/uL (0.0-0.06); Absolute Basophil Count 0.05 10^3/uL (0.0-0.2); Absolute Eosinophil Count 0.23 10^3/uL (0.0-0.7); Absolute Monocyte Count 0.59 10^3/uL (0.1-0.8); Absolute Neutrophil Count 3.13 10^3/uL (1.2-6.7); Basophils % 0.8; Eosinophils % 3.6; HCT 43.2 % (40.0-50.0); HGB 14.1 g/dL (13.5-17.5); Immature Grans % 0.5; Lymphocytes % 36.3; MCHC 32.6 % (32.0-36.0); MCV 83 fL (80-95); MPV 9.6 fL (8.0-11.0); Monocytes % 9.3; Neutrophils % 49.5; Platelet Count 127 10^3/uL (130-400); RBC 5.23 10^6/uL (4.36-5.78); RDW 14.9 % (11.8-14.1); RDW-SD 44.7 fL; WBC 6.33 10^3/uL (4.4-10.8)
[2022-08-31 08:22] LABS: ALT 136 U/L (16-63); AST 65 U/L (15-37); Albumin 4.1 g/dL (3.4-5.0); Alkaline Phosphatase 52 U/L (46-116); Anion Gap 5.5 mmol/L (3-11); BUN 18 mg/dL (7-18); Bilirubin, Direct 0.1 mg/dL (0.0-0.2); Bilirubin, Total 0.7 mg/dL (0.2-1.0); CO2 32.5 mmol/L (21.0-32.0); CREATININE 1.3 mg/dL (0.70-1.30); Calcium 8.6 mg/dL (8.5-10.1); Chloride 101 mmol/L (98-107); Estimated GFR 58.01 (mL/min/1.73m2); Glucose 119 mg/dL (74-106); Magnesium 2.2 mg/dL (1.8-2.4); PHOSPHORUS 3.2 mg/dL (2.6-4.7); Potassium 3.7 mmol/L (3.5-5.1); Sodium 139 mmol/L (136-145)
== END 2022-08-31 02:54 | disposition home or self-care (01) ==
PROVIDERS: PCP Family Medicine; Visit Provider Transplant Surgery
DX: Z48.23 Encounter for aftercare following liver transplant (principal); Z94.4 Liver transplant status; Z79.899 Other long term (current) drug therapy
CPT/HCPCS: 36415; 80053; 80195; 82248; 83735; 84100; 85025

== ENCOUNTER 2022-09-15 03:13 | Outpatient (CLI) | payer MEDICARE, BC, SELFPAY ==
[2022-09-15 07:41] LABS: Abs Immature Grans 0.02 10^3/uL (0.0-0.06); Absolute Basophil Count 0.04 10^3/uL (0.0-0.2); Absolute Lymphocyte Count 2.15 10^3/uL (1.2-3.4); Absolute Monocyte Count 0.69 10^3/uL (0.1-0.8); Absolute Neutrophil Count 3.21 10^3/uL (1.2-6.7); Basophils % 0.6; Eosinophils % 3.2; HCT 42.1 % (40.0-50.0); HGB 13.9 g/dL (13.5-17.5); Immature Grans % 0.3; Lymphocytes % 34.1; MCH 27.2 pg (27.0-33.0); MCV 82 fL (80-95); MPV 9.4 fL (8.0-11.0); Monocytes % 10.9; Neutrophils % 50.9; Platelet Count 136 10^3/uL (130-400); RBC 5.11 10^6/uL (4.36-5.78); RDW 14.8 % (11.8-14.1); RDW-SD 44.5 fL; WBC 6.31 10^3/uL (4.4-10.8)
[2022-09-15 08:21] LABS: ALT 146 U/L (16-63); AST 68 U/L (15-37); Alkaline Phosphatase 54 U/L (46-116); Anion Gap 8.5 mmol/L (3-11); BUN 17 mg/dL (7-18); Bilirubin, Direct 0.2 mg/dL (0.0-0.2); Bilirubin, Total 0.7 mg/dL (0.2-1.0); CO2 31.5 mmol/L (21.0-32.0); CREATININE 1.4 mg/dL (0.70-1.30); Chloride 101 mmol/L (98-107); Estimated GFR 53.07 (mL/min/1.73m2); Glucose 117 mg/dL (74-106); Magnesium 2.1 mg/dL (1.8-2.4); PHOSPHORUS 3.6 mg/dL (2.6-4.7); Potassium 3.3 mmol/L (3.5-5.1); Sodium 141 mmol/L (136-145); Total Protein 7.7 g/dL (6.4-8.2)
[2022-09-16 12:02] LABS: Sirolimus 4.7 ng/mL (See Note)
== END 2022-09-15 03:14 | disposition home or self-care (01) ==
PROVIDERS: PCP Family Medicine; Visit Provider Transplant Surgery
DX: Z94.4 Liver transplant status (principal); Z79.899 Other long term (current) drug therapy; Z48.23 Encounter for aftercare following liver transplant
CPT/HCPCS: 36415; 80053; 80195; 82248; 83735; 84100; 85025

== ENCOUNTER 2022-09-30 01:46 | Outpatient (CLI) | payer MEDICARE, BC, SELFPAY ==
[2022-09-30 07:58] LABS: Abs Immature Grans 0.03 10^3/uL (0.0-0.06); Absolute Basophil Count 0.06 10^3/uL (0.0-0.2); Absolute Eosinophil Count 0.18 10^3/uL (0.0-0.7); Absolute Monocyte Count 0.57 10^3/uL (0.1-0.8); Eosinophils % 2.9; HCT 44.3 % (40.0-50.0); HGB 14.3 g/dL (13.5-17.5); Immature Grans % 0.5; Lymphocytes % 32.6; MCH 26.8 pg (27.0-33.0); MCHC 32.3 % (32.0-36.0); MCV 83 fL (80-95); MPV 9.5 fL (8.0-11.0); Monocytes % 9.3; Neutrophils % 53.7; Platelet Count 132 10^3/uL (130-400); RBC 5.34 10^6/uL (4.36-5.78); RDW 14.6 % (11.8-14.1); RDW-SD 43.9 fL; WBC 6.14 10^3/uL (4.4-10.8)
[2022-09-30 08:45] LABS: ALT 155 U/L (16-63); AST 72 U/L (15-37); Albumin 3.9 g/dL (3.4-5.0); Alkaline Phosphatase 54 U/L (46-116); Anion Gap 8.2 mmol/L (3-11); BUN 16 mg/dL (7-18); Bilirubin, Direct 0.1 mg/dL (0.0-0.2); Bilirubin, Total 0.5 mg/dL (0.2-1.0); CO2 32.8 mmol/L (21.0-32.0); CREATININE 1.2 mg/dL (0.70-1.30); Calcium 8.8 mg/dL (8.5-10.1); Chloride 100 mmol/L (98-107); Estimated GFR 63.85 (mL/min/1.73m2); Glucose 120 mg/dL (74-106); PHOSPHORUS 3.6 mg/dL (2.6-4.7); Potassium 3.5 mmol/L (3.5-5.1); Sodium 141 mmol/L (136-145); Total Protein 7.6 g/dL (6.4-8.2)
[2022-10-01 12:12] LABS: Sirolimus 4.5 ng/mL (See Note)
== END 2022-09-30 01:47 | disposition home or self-care (01) ==
PROVIDERS: Visit Provider Transplant Surgery
DX: Z94.4 Liver transplant status (principal); Z48.23 Encounter for aftercare following liver transplant; Z79.899 Other long term (current) drug therapy
CPT/HCPCS: 36415; 80053; 80195; 82248; 83735; 84100; 85025

== ENCOUNTER 2022-10-26 03:15 | Outpatient (CLI) | payer MEDICARE, BC, SELFPAY ==
[2022-10-26 08:46] LABS: Abs Immature Grans 0.03 10^3/uL (0.0-0.06); Absolute Basophil Count 0.04 10^3/uL (0.0-0.2); Absolute Eosinophil Count 0.32 10^3/uL (0.0-0.7); Absolute Monocyte Count 0.63 10^3/uL (0.1-0.8); Absolute Neutrophil Count 3.08 10^3/uL (1.2-6.7); Basophils % 0.6; Eosinophils % 4.8; HCT 44.7 % (40.0-50.0); HGB 14.8 g/dL (13.5-17.5); Immature Grans % 0.5; Lymphocytes % 37.9; MCH 27.4 pg (27.0-33.0); MCHC 33.1 % (32.0-36.0); MCV 83 fL (80-95); Monocytes % 9.5; Neutrophils % 46.7; Platelet Count 139 10^3/uL (130-400); RBC 5.41 10^6/uL (4.36-5.78); RDW 15.1 % (11.8-14.1); RDW-SD 45.1 fL
[2022-10-26 09:31] LABS: ALT 150 U/L (16-63); AST 67 U/L (15-37); Albumin 4.1 g/dL (3.4-5.0); Alkaline Phosphatase 53 U/L (46-116); Anion Gap 7.1 mmol/L (3-11); BUN 24 mg/dL (7-18); Bilirubin, Direct 0.2 mg/dL (0.0-0.2); Bilirubin, Total 0.5 mg/dL (0.2-1.0); CO2 32.9 mmol/L (21.0-32.0); CREATININE 1.6 mg/dL (0.70-1.30); Calcium 8.9 mg/dL (8.5-10.1); Chloride 100 mmol/L (98-107); Estimated GFR 44.93 (mL/min/1.73m2); Glucose 107 mg/dL (74-106); Magnesium 2.1 mg/dL (1.8-2.4); PHOSPHORUS 3.8 mg/dL (2.6-4.7); Potassium 3.6 mmol/L (3.5-5.1); Sodium 140 mmol/L (136-145); Total Protein 7.5 g/dL (6.4-8.2)
[2022-10-28 12:40] LABS: Sirolimus 5.1 ng/mL (See Note)
== END 2022-10-26 03:16 | disposition home or self-care (01) ==
PROVIDERS: PCP Family Medicine; Visit Provider Transplant Surgery
DX: Z94.4 Liver transplant status (principal); Z79.899 Other long term (current) drug therapy; Z48.23 Encounter for aftercare following liver transplant
CPT/HCPCS: 36415; 80053; 80195; 82248; 83735; 84100; 85025

== ENCOUNTER 2022-11-10 02:51 | Outpatient (CLI) | payer MEDICARE, BC, SELFPAY ==
[2022-11-10 07:48] LABS: Abs Immature Grans 0.02 10^3/uL (0.0-0.06); Absolute Basophil Count 0.03 10^3/uL (0.0-0.2); Absolute Eosinophil Count 0.17 10^3/uL (0.0-0.7); Absolute Lymphocyte Count 2.13 10^3/uL (1.2-3.4); Absolute Monocyte Count 0.55 10^3/uL (0.1-0.8); Absolute Neutrophil Count 2.63 10^3/uL (1.2-6.7); Basophils % 0.5; Eosinophils % 3.1; HCT 41.9 % (40.0-50.0); HGB 14.2 g/dL (13.5-17.5); Immature Grans % 0.4; Lymphocytes % 38.5; MCH 27.9 pg (27.0-33.0); MCHC 33.9 % (32.0-36.0); MCV 82 fL (80-95); MPV 9.6 fL (8.0-11.0); Monocytes % 9.9; Neutrophils % 47.6; Platelet Count 131 10^3/uL (130-400); RBC 5.09 10^6/uL (4.36-5.78); RDW 14.8 % (11.8-14.1); RDW-SD 44.9 fL; WBC 5.53 10^3/uL (4.4-10.8)
[2022-11-10 08:38] LABS: ALT 133 U/L (16-63); AST 61 U/L (15-37); Alkaline Phosphatase 48 U/L (46-116); Anion Gap 5.6 mmol/L (3-11); BUN 21 mg/dL (7-18); Bilirubin, Total 0.6 mg/dL (0.2-1.0); CO2 31.4 mmol/L (21.0-32.0); CREATININE 1.3 mg/dL (0.70-1.30); Calcium 8.8 mg/dL (8.5-10.1); Chloride 104 mmol/L (98-107); Estimated GFR 57.65 (mL/min/1.73m2); Glucose 114 mg/dL (74-106); Magnesium 2.2 mg/dL (1.8-2.4); PHOSPHORUS 3.9 mg/dL (2.6-4.7); Potassium 3.5 mmol/L (3.5-5.1); Sodium 141 mmol/L (136-145); Total Protein 7.7 g/dL (6.4-8.2)
[2022-11-11 12:07] LABS: Sirolimus 5.4 ng/mL (See Note)
== END 2022-11-10 02:52 | disposition home or self-care (01) ==
PROVIDERS: PCP Family Medicine; Visit Provider Transplant Surgery
DX: Z48.23 Encounter for aftercare following liver transplant (principal); Z79.899 Other long term (current) drug therapy; Z94.4 Liver transplant status
CPT/HCPCS: 36415; 80053; 80195; 83735; 84100; 85025

== ENCOUNTER 2022-12-23 02:21 | Outpatient (CLI) | payer MEDICARE, BC, SELFPAY ==
[2022-12-23 08:23] LABS: HCT 42.7 % (40.0-50.0); HGB 14.3 g/dL (13.5-17.5); MCH 27.8 pg (27.0-33.0); MCHC 33.5 % (32.0-36.0); MCV 83 fL (80-95); MPV 9.3 fL (8.0-11.0); Platelet Count 134 10^3/uL (130-400); RBC 5.14 10^6/uL (4.36-5.78); RDW 14.6 % (11.8-14.1); RDW-SD 44.5 fL; WBC 5.37 10^3/uL (4.4-10.8)
[2022-12-23 08:32] LABS: Prothrombin Time 10.1 sec (9.3-11.0)
[2022-12-23 09:41] LABS: ALT 153 U/L (16-63); AST 77 U/L (15-37); Albumin 3.9 g/dL (3.4-5.0); Alkaline Phosphatase 49 U/L (46-116); Anion Gap 6.6 mmol/L (3-11); BUN 22 mg/dL (7-18); Bilirubin, Total 0.7 mg/dL (0.2-1.0); CO2 31.4 mmol/L (21.0-32.0); CREATININE 1.3 mg/dL (0.70-1.30); Calcium 8.7 mg/dL (8.5-10.1); Chloride 103 mmol/L (98-107); Estimated GFR 57.65 (mL/min/1.73m2); Glucose 123 mg/dL (74-106); Potassium 3.8 mmol/L (3.5-5.1); Sodium 141 mmol/L (136-145); Total Protein 7.4 g/dL (6.4-8.2)
[2022-12-23 10:10] LABS: Abs Immature Grans 0.03 10^3/uL (0.0-0.06); Absolute Basophil Count 0.03 10^3/uL (0.0-0.2); Absolute Eosinophil Count 0.17 10^3/uL (0.0-0.7); Absolute Lymphocyte Count 2.03 10^3/uL (1.2-3.4); Absolute Monocyte Count 0.61 10^3/uL (0.1-0.8); Absolute Neutrophil Count 2.64 10^3/uL (1.2-6.7); Basophils % 0.5; Eosinophils % 3.1; Immature Grans % 0.5; Lymphocytes % 36.8; Monocytes % 11.1
[2022-12-25 12:21] LABS: Sirolimus 5.5 ng/mL (See Note)
== END 2022-12-23 02:22 | disposition home or self-care (01) ==
PROVIDERS: PCP Family Medicine; Visit Provider Internal Medicine
DX: Z94.4 Liver transplant status (principal); Z79.899 Other long term (current) drug therapy; Z48.23 Encounter for aftercare following liver transplant
CPT/HCPCS: 36415; 80053; 85027; 80195; 85007; 85610

== ENCOUNTER 2023-02-23 03:30 | Outpatient (CLI) | payer MEDICARE, BC, SELFPAY ==
[2023-02-23 07:48] LABS: Abs Immature Grans 0.02 10^3/uL (0.0-0.06); Absolute Basophil Count 0.05 10^3/uL (0.0-0.2); Absolute Eosinophil Count 0.32 10^3/uL (0.0-0.7); Absolute Monocyte Count 0.44 10^3/uL (0.1-0.8); Absolute Neutrophil Count 2.91 10^3/uL (1.2-6.7); Basophils % 0.8; Eosinophils % 5.4; HCT 42.6 % (40.0-50.0); HGB 14.5 g/dL (13.5-17.5); Immature Grans % 0.3; MCH 28.3 pg (27.0-33.0); MCV 83 fL (80-95); MPV 9.7 fL (8.0-11.0); Monocytes % 7.4; Neutrophils % 49.1; Platelet Count 153 10^3/uL (130-400); RBC 5.13 10^6/uL (4.36-5.78); RDW 14.3 % (11.8-14.1); RDW-SD 43.3 fL; WBC 5.94 10^3/uL (4.4-10.8)
[2023-02-23 08:00] LABS: Prothrombin Time 9.7 sec (9.3-11.0)
[2023-02-23 08:37] LABS: ALT 102 U/L (16-63); AST 48 U/L (15-37); Albumin 3.8 g/dL (3.4-5.0); Alkaline Phosphatase 54 U/L (46-116); Anion Gap 6.3 mmol/L (3-11); BUN 17 mg/dL (7-18); Bilirubin, Total 0.4 mg/dL (0.2-1.0); CO2 32.7 mmol/L (21.0-32.0); CREATININE 1.3 mg/dL (0.70-1.30); Calcium 8.4 mg/dL (8.5-10.1); Chloride 102 mmol/L (98-107); Estimated GFR 57.65 (mL/min/1.73m2); Glucose 116 mg/dL (74-106); Potassium 3.8 mmol/L (3.5-5.1); Sodium 141 mmol/L (136-145); Total Protein 7.7 g/dL (6.4-8.2)
[2023-02-24 12:25] LABS: Sirolimus 5.4 ng/mL (See Note)
== END 2023-02-23 03:31 | disposition home or self-care (01) ==
PROVIDERS: PCP Family Medicine; Visit Provider Internal Medicine
DX: Z94.4 Liver transplant status (principal)
CPT/HCPCS: 36415; 80053; 80195; 85025; 85610

== ENCOUNTER 2023-04-27 08:19 | Outpatient (CLI) | payer MEDICARE, BC, SELFPAY ==
[2023-04-27 08:00] LABS: Abs Immature Grans 0.04 10^3/uL (0.0-0.06); Absolute Basophil Count 0.04 10^3/uL (0.0-0.2); Absolute Eosinophil Count 0.19 10^3/uL (0.0-0.7); Absolute Lymphocyte Count 2.01 10^3/uL (1.2-3.4); Absolute Monocyte Count 0.56 10^3/uL (0.1-0.8); Absolute Neutrophil Count 3.04 10^3/uL (1.2-6.7); Basophils % 0.7; Eosinophils % 3.2; HGB 14.9 g/dL (13.5-17.5); Immature Grans % 0.7; Lymphocytes % 34.2; MCH 27.8 pg (27.0-33.0); MCHC 33.9 % (32.0-36.0); MCV 82 fL (80-95); MPV 9.8 fL (8.0-11.0); Monocytes % 9.5; Neutrophils % 51.7; Platelet Count 158 10^3/uL (130-400); RBC 5.36 10^6/uL (4.36-5.78); RDW 14.5 % (11.8-14.1); RDW-SD 42.2 fL; WBC 5.88 10^3/uL (4.4-10.8)
[2023-04-27 08:08] LABS: INR 0.9 (0.9-1.1); Prothrombin Time 9.4 sec (9.3-11.0)
[2023-04-27 08:59] LABS: ALT 91 U/L (16-63); AST 42 U/L (15-37); Albumin 3.9 g/dL (3.4-5.0); Alkaline Phosphatase 53 U/L (46-116); Anion Gap 8.9 mmol/L (3-11); BUN 19 mg/dL (7-18); Bilirubin, Total 0.4 mg/dL (0.2-1.0); CO2 32.1 mmol/L (21.0-32.0); CREATININE 1.3 mg/dL (0.70-1.30); Calcium 8.7 mg/dL (8.5-10.1); Chloride 101 mmol/L (98-107); Estimated GFR 57.65 (mL/min/1.73m2); Glucose 114 mg/dL (74-106); Magnesium 2.1 mg/dL (1.8-2.4); Potassium 3.7 mmol/L (3.5-5.1); Sodium 142 mmol/L (136-145); TSH (W/Ref FT4) 0.99 uIU/mL (0.36-3.74); Total Protein 7.5 g/dL (6.4-8.2)
[2023-04-27 09:10] LABS: Bilirubin, Direct 0.1 mg/dL (0.0-0.2); PHOSPHORUS 3.1 mg/dL (2.6-4.7)
[2023-04-28 12:11] LABS: Sirolimus 5.1 ng/mL (See Note)
== END 2023-04-27 08:20 | disposition home or self-care (01) ==
LOC: LBO 08:19
PROVIDERS: PCP Family Medicine; Visit Provider Transplant Surgery
DX: E03.9 Hypothyroidism, unspecified (principal); Z94.4 Liver transplant status; Z79.899 Other long term (current) drug therapy; Z48.23 Encounter for aftercare following liver transplant
CPT/HCPCS: 36415; 80053; 80195; 82248; 83735; 84100; 84443; 85025; 85610

== ENCOUNTER 2023-06-29 01:58 | Outpatient (CLI) | payer MEDICARE, BC, SELFPAY ==
[2023-06-29 07:57] LABS: Abs Immature Grans 0.02 10^3/uL (0.0-0.06); Absolute Basophil Count 0.07 10^3/uL (0.0-0.2); Absolute Eosinophil Count 0.49 10^3/uL (0.0-0.7); Absolute Lymphocyte Count 1.72 10^3/uL (1.2-3.4); Absolute Monocyte Count 0.64 10^3/uL (0.1-0.8); Absolute Neutrophil Count 3.83 10^3/uL (1.2-6.7); Eosinophils % 7.2; HCT 42.2 % (40.0-50.0); HGB 14.1 g/dL (13.5-17.5); Immature Grans % 0.3; Lymphocytes % 25.4; MCH 27.1 pg (27.0-33.0); MCHC 33.4 % (32.0-36.0); MCV 81 fL (80-95); Monocytes % 9.5; Neutrophils % 56.6; Platelet Count 137 10^3/uL (130-400); RBC 5.21 10^6/uL (4.36-5.78); RDW 14.2 % (11.8-14.1); RDW-SD 41.2 fL; WBC 6.77 10^3/uL (4.4-10.8)
[2023-06-29 08:10] LABS: Prothrombin Time 10.2 sec (9.1-11.1)
[2023-06-29 08:17] LABS: ALT 54 U/L (16-63); AST 33 U/L (15-37); Albumin 3.9 g/dL (3.4-5.0); Alkaline Phosphatase 54 U/L (46-116); Anion Gap 8.2 mmol/L (3-11); BUN 22 mg/dL (7-18); Bilirubin, Direct 0.1 mg/dL (0.0-0.2); Bilirubin, Total 0.8 mg/dL (0.2-1.0); CO2 29.8 mmol/L (21.0-32.0); CREATININE 1.3 mg/dL (0.70-1.30); Calcium 9.4 mg/dL (8.5-10.1); Chloride 101 mmol/L (98-107); Estimated GFR 57.65 (mL/min/1.73m2); Glucose 124 mg/dL (74-106); Magnesium 2.3 mg/dL (1.8-2.4); PHOSPHORUS 3.1 mg/dL (2.6-4.7); Potassium 3.7 mmol/L (3.5-5.1); Sodium 139 mmol/L (136-145); Total Protein 8.1 g/dL (6.4-8.2)
[2023-06-30 12:09] LABS: Sirolimus 5.2 ng/mL (See Note)
== END 2023-06-29 01:59 | disposition home or self-care (01) ==
PROVIDERS: Internal Medicine; PCP Family Medicine; Visit Provider Transplant Surgery
DX: Z94.4 Liver transplant status (principal); Z79.899 Other long term (current) drug therapy; Z48.23 Encounter for aftercare following liver transplant
CPT/HCPCS: 36415; 80053; 80195; 82248; 83735; 84100; 85025; 85610

== ENCOUNTER 2023-09-06 04:42 | Outpatient (CLI) | payer MEDICARE, BC, SELFPAY ==
[2023-09-06 07:20] LABS: Abs Immature Grans 0.02 10^3/uL (0.0-0.06); Absolute Basophil Count 0.04 10^3/uL (0.0-0.2); Absolute Eosinophil Count 0.21 10^3/uL (0.0-0.7); Absolute Lymphocyte Count 1.99 10^3/uL (1.2-3.4); Absolute Monocyte Count 0.51 10^3/uL (0.1-0.8); Absolute Neutrophil Count 2.61 10^3/uL (1.2-6.7); Basophils % 0.7; Eosinophils % 3.9; HCT 42.1 % (40.0-50.0); Immature Grans % 0.4; MCH 27.2 pg (27.0-33.0); MCHC 33.3 % (32.0-36.0); MCV 82 fL (80-95); MPV 9.4 fL (8.0-11.0); Monocytes % 9.5; Neutrophils % 48.5; Platelet Count 136 10^3/uL (130-400); RBC 5.15 10^6/uL (4.36-5.78); RDW 14.6 % (11.8-14.1); RDW-SD 43.5 fL; WBC 5.38 10^3/uL (4.4-10.8)
[2023-09-06 07:37] LABS: Prothrombin Time 10.3 sec (9.1-11.1)
[2023-09-06 07:45] LABS: ALT 61 U/L (16-63); AST 33 U/L (15-37); Albumin 3.8 g/dL (3.4-5.0); Alkaline Phosphatase 41 U/L (46-116); BUN 16 mg/dL (7-18); Bilirubin, Direct 0.2 mg/dL (0.0-0.2); Bilirubin, Total 0.6 mg/dL (0.2-1.0); CREATININE 1.2 mg/dL (0.70-1.30); Chloride 101 mmol/L (98-107); Estimated GFR 63.46 (mL/min/1.73m2); Glucose 119 mg/dL (74-106); Magnesium 2.1 mg/dL (1.8-2.4); PHOSPHORUS 3.6 mg/dL (2.6-4.7); Potassium 3.5 mmol/L (3.5-5.1); Sodium 141 mmol/L (136-145); Total Protein 7.6 g/dL (6.4-8.2)
[2023-09-07 12:46] LABS: Sirolimus 4.4 ng/mL (See Note)
== END 2023-09-06 04:43 | disposition home or self-care (01) ==
LOC: LBO 04:42
PROVIDERS: PCP Family Medicine; Visit Provider Transplant Surgery
DX: Z79.899 Other long term (current) drug therapy (principal); Z94.4 Liver transplant status
CPT/HCPCS: 36415; 80053; 80195; 82248; 83735; 84100; 85025; 85610

== ENCOUNTER 2023-11-30 04:01 | Outpatient (CLI) | payer MEDICARE, BC, SELFPAY ==
[2023-11-30 07:44] LABS: Abs Immature Grans 0.02 10^3/uL (0.0-0.06); Absolute Basophil Count 0.04 10^3/uL (0.0-0.2); Absolute Eosinophil Count 0.21 10^3/uL (0.0-0.7); Absolute Lymphocyte Count 2.51 10^3/uL (1.2-3.4); Absolute Monocyte Count 0.51 10^3/uL (0.1-0.8); Absolute Neutrophil Count 2.91 10^3/uL (1.2-6.7); Basophils % 0.6; Eosinophils % 3.4; HCT 42.2 % (40.0-50.0); HGB 14.1 g/dL (13.5-17.5); Immature Grans % 0.3; Lymphocytes % 40.5; MCH 27.5 pg (27.0-33.0); MCHC 33.4 % (32.0-36.0); MCV 82 fL (80-95); MPV 9.3 fL (8.0-11.0); Monocytes % 8.2; Platelet Count 154 10^3/uL (130-400); RBC 5.13 10^6/uL (4.36-5.78); RDW 14.7 % (11.8-14.1); RDW-SD 43.9 fL
[2023-11-30 07:57] LABS: Prothrombin Time 10.3 sec (9.1-11.1)
[2023-11-30 08:01] LABS: ALT 81 U/L (16-63); AST 40 U/L (15-37); Alkaline Phosphatase 47 U/L (46-116); Anion Gap 7.6 mmol/L (3-11); BUN 18 mg/dL (7-18); Bilirubin, Direct 0.2 mg/dL (0.0-0.2); Bilirubin, Total 0.6 mg/dL (0.2-1.0); CO2 32.4 mmol/L (21.0-32.0); CREATININE 1.4 mg/dL (0.70-1.30); Calcium 8.8 mg/dL (8.5-10.1); Chloride 102 mmol/L (98-107); Estimated GFR 52.41 (mL/min/1.73m2); Glucose 119 mg/dL (74-106); Magnesium 2.1 mg/dL (1.8-2.4); PHOSPHORUS 3.8 mg/dL (2.6-4.7); Potassium 3.5 mmol/L (3.5-5.1); Sodium 142 mmol/L (136-145); Total Protein 7.8 g/dL (6.4-8.2)
[2023-12-01 12:00] LABS: Sirolimus 5.3 ng/mL (See Note)
== END 2023-11-30 04:02 | disposition home or self-care (01) ==
PROVIDERS: Internal Medicine; PCP Family Medicine; Visit Provider Transplant Surgery
DX: Z79.899 Other long term (current) drug therapy (principal); Z94.4 Liver transplant status
CPT/HCPCS: 36415; 80053; 80195; 82248; 83735; 84100; 85025; 85610

== ENCOUNTER 2024-03-28 02:37 | Outpatient (CLI) | payer MEDICARE, BC, SELFPAY ==
[2024-03-28 08:24] LABS: Abs Immature Grans 0.03 10^3/uL (0.0-0.06); Absolute Basophil Count 0.04 10^3/uL (0.0-0.2); Absolute Eosinophil Count 0.21 10^3/uL (0.0-0.7); Absolute Lymphocyte Count 2.02 10^3/uL (1.2-3.4); Absolute Monocyte Count 0.56 10^3/uL (0.1-0.8); Absolute Neutrophil Count 2.79 10^3/uL (1.2-6.7); Basophils % 0.7 %; Eosinophils % 3.7 %; HCT 41.2 % (40.0-50.0); HGB 13.7 g/dL (13.5-17.5); Immature Grans % 0.5 %; Lymphocytes % 35.8 %; MCH 27.8 pg (27.0-33.0); MCHC 33.3 % (32.0-36.0); MCV 84 fL (80-95); Monocytes % 9.9 %; Neutrophils % 49.4 %; Platelet Count 149 10^3/uL (130-400); RBC 4.93 10^6/uL (4.36-5.78); RDW 14.8 % (11.8-14.1); RDW-SD 44.7 fL; WBC 5.65 10^3/uL (4.4-10.8)
[2024-03-28 09:38] LABS: ALT 72 U/L (16-63); AST 35 U/L (15-37); Alkaline Phosphatase 46 U/L (46-116); Anion Gap 10.2 mmol/L (3-11); BUN 17 mg/dL (7-18); Bilirubin, Direct 0.1 mg/dL (0.0-0.2); Bilirubin, Total 0.59 mg/dL (0.2-1.0); CO2 29.8 mmol/L (21.0-32.0); CREATININE 1.3 mg/dL (0.70-1.30); Calcium 9.3 mg/dL (8.5-10.1); Chloride 102 mmol/L (98-107); Estimated GFR 57.29 (mL/min/1.73m2); Glucose 122 mg/dL (74-106); Magnesium 2.1 mg/dL (1.8-2.4); PHOSPHORUS 3.1 mg/dL (2.6-4.7); Potassium 3.7 mmol/L (3.5-5.1); Sodium 142 mmol/L (136-145); Total Protein 7.7 g/dL (6.4-8.2)
[2024-03-29 12:11] LABS: Sirolimus 4.9 ng/mL (See Note)
== END 2024-03-28 02:38 | disposition home or self-care (01) ==
PROVIDERS: PCP Family Medicine; Visit Provider Transplant Surgery
DX: Z79.899 Other long term (current) drug therapy (principal); Z94.4 Liver transplant status; Z48.23 Encounter for aftercare following liver transplant
CPT/HCPCS: 36415; 80053; 80195; 82248; 83735; 84100; 85025

== ENCOUNTER 2024-06-27 04:30 | Outpatient (CLI) | payer MEDICARE, BC, SELFPAY ==
[2024-06-27 08:08] LABS: Abs Immature Grans 0.01 10^3/uL (0.0-0.06); Absolute Basophil Count 0.03 10^3/uL (0.0-0.2); Absolute Lymphocyte Count 1.95 10^3/uL (1.2-3.4); Absolute Monocyte Count 0.63 10^3/uL (0.1-0.8); Absolute Neutrophil Count 2.84 10^3/uL (1.2-6.7); Basophils % 0.5 %; Eosinophils % 3.5 %; HCT 41.3 % (40.0-50.0); HGB 13.8 g/dL (13.5-17.5); Immature Grans % 0.2 %; Lymphocytes % 34.5 %; MCH 27.7 pg (27.0-33.0); MCHC 33.4 % (32.0-36.0); MCV 83 fL (80-95); MPV 9.1 fL (8.0-11.0); Monocytes % 11.1 %; Neutrophils % 50.2 %; Platelet Count 156 10^3/uL (130-400); RBC 4.99 10^6/uL (4.36-5.78); RDW 14.1 % (11.8-14.1); RDW-SD 42.3 fL; WBC 5.66 10^3/uL (4.4-10.8)
[2024-06-27 08:29] LABS: ALT 50 U/L (16-63); AST 30 U/L (15-37); Albumin 3.9 g/dL (3.4-5.0); Alkaline Phosphatase 50 U/L (46-116); Anion Gap 5.7 mmol/L (3-11); BUN 16 mg/dL (7-18); Bilirubin, Direct 0.1 mg/dL (0.0-0.2); CO2 33.3 mmol/L (21.0-32.0); CREATININE 1.3 mg/dL (0.70-1.30); Calcium 9.1 mg/dL (8.5-10.1); Chloride 103 mmol/L (98-107); Estimated GFR 57.29 (mL/min/1.73m2); Glucose 115 mg/dL (74-106); Magnesium 2.3 mg/dL (1.8-2.4); PHOSPHORUS 3.5 mg/dL (2.6-4.7); Potassium 3.5 mmol/L (3.5-5.1); Sodium 142 mmol/L (136-145); Total Protein 7.7 g/dL (6.4-8.2)
[2024-06-28 12:42] LABS: Sirolimus 5.5 ng/mL (See Note)
== END 2024-06-27 04:31 | disposition home or self-care (01) ==
PROVIDERS: PCP Family Medicine; Visit Provider Transplant Surgery
DX: Z79.899 Other long term (current) drug therapy (principal); Z94.4 Liver transplant status; Z48.23 Encounter for aftercare following liver transplant
CPT/HCPCS: 36415; 80053; 80195; 82248; 83735; 84100; 85025

== ENCOUNTER 2024-09-27 04:45 | Outpatient (CLI) | payer MEDICARE, BC, SELFPAY ==
[2024-09-27 08:13] LABS: Abs Immature Grans 0.01 10^3/uL (0.0-0.06); Absolute Basophil Count 0.03 10^3/uL (0.0-0.2); Absolute Eosinophil Count 0.16 10^3/uL (0.0-0.7); Absolute Lymphocyte Count 1.87 10^3/uL (1.2-3.4); Absolute Monocyte Count 0.57 10^3/uL (0.1-0.8); Absolute Neutrophil Count 3.25 10^3/uL (1.2-6.7); Basophils % 0.5 %; Eosinophils % 2.7 %; HCT 44.9 % (40.0-50.0); HGB 14.7 g/dL (13.5-17.5); Immature Grans % 0.2 %; Lymphocytes % 31.7 %; MCH 27.7 pg (27.0-33.0); MCHC 32.7 % (32.0-36.0); MCV 85 fL (80-95); MPV 9.2 fL (8.0-11.0); Monocytes % 9.7 %; Neutrophils % 55.2 %; Platelet Count 145 10^3/uL (130-400); RBC 5.31 10^6/uL (4.36-5.78); RDW 14.8 % (11.8-14.1); RDW-SD 45.2 fL; WBC 5.89 10^3/uL (4.4-10.8)
[2024-09-27 08:27] LABS: ALT 56 U/L (16-63); AST 29 U/L (15-37); Albumin 4.1 g/dL (3.4-5.0); Alkaline Phosphatase 55 U/L (46-116); BUN 16 mg/dL (7-18); Bilirubin, Total 0.84 mg/dL (0.2-1.0); CREATININE 1.3 mg/dL (0.70-1.30); Calcium 9.5 mg/dL (8.5-10.1); Chloride 102 mmol/L (98-107); Estimated GFR 57.29 (mL/min/1.73m2); Glucose 139 mg/dL (74-106); Magnesium 2.2 mg/dL (1.8-2.4); PHOSPHORUS 3.5 mg/dL (2.6-4.7); Potassium 3.5 mmol/L (3.5-5.1); Sodium 141 mmol/L (136-145); Total Protein 8.2 g/dL (6.4-8.2)
[2024-09-28 12:25] LABS: Sirolimus 4.1 ng/mL (See Note)
== END 2024-09-27 04:46 | disposition home or self-care (01) ==
PROVIDERS: PCP Family Medicine; Visit Provider Transplant Surgery
DX: Z79.899 Other long term (current) drug therapy (principal); Z94.4 Liver transplant status; Z48.23 Encounter for aftercare following liver transplant
CPT/HCPCS: 36415; 80053; 80195; 83735; 84100; 85025

== ENCOUNTER 2024-09-27 10:17 | Emergency (ER) | payer MEDICARE, BC, SELFPAY ==
[2024-09-27 10:32] VITALS: BP 163/81; PULSE 70; RESP 10; TEMP 36.2; O2SAT 95
--- NOTE | 2024-09-27 10:43 | W.ED.GENAD ---
Discharge Plan Disposition Patient Disposition: Home Condition: Stable Discharge Details Clinical Impression: Back strain Primary Care Provider: Laci Fernandez ED Provider: Pedro Orourke Home Meds and New Rx's Prescriptions: Continued cholecalciferol (vitamin D3) 2,000 unit capsule 4,000 unit PO DAILY sildenafil [Viagra] 100 mg tablet 25 - 100 mg PO ONCE Qty: 7 4RF Rx Instructions: administer 30 minutes to 4 hours before activity pravastatin 40 mg tablet 40 mg PO DAILY omega-3 fatty acids-fish oil [Fish Oil] 360-1,200 mg capsule 2 cap PO TID magnesium oxide 400 mg (241.3 mg magnesium) tablet 400 mg PO BID prednisone 2.5 mg tablet 2.5 mg PO DAILY Patient Comments: per [facility] sirolimus 1 mg tablet 1 mg PO DAILY Patient Comments: per [facility] cetirizine [Zyrtec] 10 MG tablet 10 mg PO DAILY PRN acetaminophen [Acetaminophen Extra Strength] 500 MG tablet 2 tab PO BID PRN aspirin [Aspir-81] 81 MG tablet,delayed release (DR/EC) 81 mg PO DAILY Patient Comments: 01/08/16 TAKING 2 TABS UNTIL 01/13 THEN BACK TO 1 TAB DAILY. [facility] omeprazole 20 MG capsule,delayed release(DR/EC) 20 mg PO DAILY [id number]-eenf-xvrfgj-hyalur ac 1 EACH capsule 1 ea PO BID zinc sulfate [Zinc-220] 220 MG capsule 220 mg PO DAILY multivitamin [Daily Multi-Vitamin] 1 EACH tablet 1 ea PO DAILY Vitron-C 1 EACH tablet,delayed release (DR/EC) 1 ea PO DAILY cod liver oil 1 EACH capsule 1 ea PO DAILY tizanidine 2 mg tablet 2 mg PO TID PRN (Reason: muscle spasticity) Qty: 20 0RF levothyroxine [Synthroid] 125 mcg tablet 250 mcg PO DAILY Qty: 180 3RF hydrochlorothiazide 25 mg tablet 25 mg PO QAM Qty: 90 3RF Discharge Instructions Instructions: Back Muscle Strain, Cyclobenzaprine Additional Instructions: You were seen in the emergency department for your right-sided flank and back pain, your CTs are negative for any injury to your transplanted liver. There is no fracture of your vertebrae or any visualized ribs, no lacerations of liver, you do have significant spinal canal stenosis/arthritis of the spine. Please use heat and cold alternated to your back, remain in back brace, take Tylenol as directed by your liver transplant team for pain. I provided you 3 tablets of a muscle relaxer to go to see if this can help you, this medicine will make you a little woozy and increase your fall risk please take it in the home and be ready to rest and lay down when you use this medicine. Use the provided physical therapy referral if desired for long-term relief of lumbar back pain. Return to the emergency department for any emergent concerns, urinary retention, bowel incontinence, numbness to genitals, severe increase in pain especially fever, right upper quadrant pain, abdominal bruising/rigidity. Stand Alone Forms: Physical Therapy Referral Referrals: Laci Fernandez MD [Primary Care Provider] - Discharge Data Discharge Date/Time-TO BE ENTERED AT DEPARTURE: 09/27/24 14:16 HPI General Date/Time Provider Initiated Documentation: 09/27/24 10:43. HPI Narrative: 73 year-old male presents to ED today by POV/ambulating with a chief complaint of fall 3 days ago with right sided lower back pain as well as right-sided abdominal pain in the setting of liver transplant patient. Quality described as right lumbar back pain paraspinal, right upper quadrant abdominal pain, questions whether this is muscular in nature-endorses muscle spasms, no radiation to fever, abdominal bruising, rigidity, urinary retention or bowel incontinence, numbness to genitals, inability to ambulate. Severity is described as moderate. Palliating factors include has taken some Tylenol but is careful with this medicine due to liver pretransplant. Provoking factors include nothing specific. Events leading up to the incident/Associated Symptoms: Patient has been wearing a back brace and applying heat and ice to the area. Patient not anticoagulated. Related Data Home Medications ?Medication ?Instructions ?Recorded ?Confirmed acetaminophen 500 mg tablet 2 tab PO BID PRN 01/31/13 09/27/24 (Acetaminophen Extra Strength) cetirizine 10 mg tablet (Zyrtec) 10 mg PO DAILY PRN 01/31/13 09/27/24 aspirin 81 mg tablet,delayed 81 mg PO DAILY 02/07/13 09/27/24 release (Aspir-) omeprazole 20 mg capsule,delayed 20 mg PO DAILY 06/07/13 09/27/24 release glucosamin 375 mg-chond 300 1 ea PO BID 02/07/14 09/27/24 mg-collagen 50 mg-hyaluronic acid 2 mg cap zinc sulfate 50 mg zinc (220 mg) 220 mg PO DAILY 02/07/14 09/27/24 capsule (Zinc-220) multivitamin (Daily Multi-Vitamin 1 ea PO DAILY 07/31/14 09/27/24 tablet) iron,carbonyl 65 mg-vitamin C 125 1 ea PO DAILY 05/08/16 09/27/24 mg tablet,delayed release (Vitron-C) cod liver oil 1 ea PO DAILY 11/10/16 09/27/24 cholecalciferol (vitamin D3) 50 4,000 unit PO DAILY 05/18/18 09/27/24 mcg (2,000 unit) capsule sildenafil 100 mg tablet (Viagra) 25 - 100 mg (0.25 - 1 x 100 mg) PO 05/18/18 09/27/24 ONCE #7 tabs pravastatin 40 mg tablet 40 mg PO DAILY 09/30/18 09/27/24 omega-3 fatty acids-fish oil 360 2 cap PO TID 06/25/20 09/27/24 mg-1,200 mg capsule (Fish Oil) prednisone 2.5 mg tablet 2.5 mg PO DAILY 02/13/21 09/27/24 sirolimus 1 mg tablet 1 mg PO DAILY 02/13/21 09/27/24 tizanidine 2 mg tablet 2 mg PO TID PRN muscle spasticity 04/30/21 09/27/24 #20 tabs magnesium oxide 400 mg (241.3 mg 400 mg PO BID 03/19/22 09/27/24 magnesium) tablet hydrochlorothiazide 25 mg tablet 25 mg PO QAM #90 tabs 03/29/24 09/27/24 levothyroxine 125 mcg tablet 250 mcg (2 x 125 mcg) PO DAILY 03/29/24 09/27/24 (Synthroid) #180 tab-caps Previous Rx's ?Medication ?Instructions ?Recorded sildenafil 100 mg tablet (Viagra) 25 - 100 mg (0.25 - 1 x 100 mg) PO 05/18/18 ONCE #7 tabs tizanidine 2 mg tablet 2 mg PO TID PRN muscle spasticity 04/30/21 #20 tabs hydrochlorothiazide 25 mg tablet 25 mg PO QAM #90 tabs 03/29/24 levothyroxine 125 mcg tablet 250 mcg (2 x 125 mcg) PO DAILY 03/29/24 (Synthroid) #180 tab-caps Allergies Allergy/AdvReac Type Severity Reaction Status Date / Time codeine Allergy Severe THROAT Verified 09/27/24 10:40 SWELLED SHUT amlodipine AdvReac Intermediate periphreal Verified 09/27/24 10:40 edema General Stated Complaint: Nk/Back Pain MARK: 4 Review of Systems All systems reviewed & are unremarkable except as noted in HPI and below Exam Narrative Exam Narrative: GENERAL APPEARANCE: Well-nourished, non-toxic, awake and alert, atraumatic, no acute distress. SKIN: Warm, pink, dry, intact, without rashes/lesions/ulcerations. HEAD: Normocephalic, atraumatic, normal hair distribution for gender/age. EYES: Normal conjunctiva, no exudates on lids/lashes. ENT: Nares patent, no circumoral cyanosis, no facial swelling NECK: Supple, trachea midline, painless cervical ROM. LUNGS/CHEST: Lungs CTA bilaterally no focally diminished or absent lung sounds, non-labored respirations, normal A/P diameter, symmetrical expansion, no chest wall deformity HEART (CV/PV): Regular rate and rhythm without murmur, no peripheral edema, no JVD. ABDOMEN: Soft, non-distended, no guarding, right upper quadrant tenderness without Marquez sign, no ecchymosis, no rigidity. MSK: Normal ROM, no swelling/deformity to bilateral UEs or LEs, moving all extremities without weakness, no cyanosis, spine midline without tenderness, normal curvature, right lumbar paraspinal tenderness without midline vertebral tenderness/crepitus/step-offs NEURO: Mental Status AAOx4 - alert to person, place, time, events No facial droop, no forehead involvement. Motor: No focal weakness - strength 5/5 in bilateral UEs and LEs, proximal and distal, symmetric. Sensory: sensation intact to light touch globally. Gait normal: patient ambulated without ataxia into ED room. PSYCH: euthymic, cooperative, pleasant, appropriate speech Course Vital Signs Vital signs: Vital Signs Temperature 36.2 C L 09/27/24 10:32 Pulse 70 09/27/24 10:32 Respiratory Rate 10 L 09/27/24 10:32 Blood Pressure 163/81 H 09/27/24 10:32 Pulse Oximetry 95 09/27/24 10:32 Temperature 36.2 C L 09/27/24 10:32 Temperature Source Oral 09/27/24 10:32 Pulse 70 09/27/24 10:32 Respiratory Rate 10 L 09/27/24 10:32 Blood Pressure 163/81 H 09/27/24 10:32 Blood Pressure Position Sitting 09/27/24 10:32 Pulse Oximetry 95 09/27/24 10:32 Oxygen Delivery Method Room Air 09/27/24 10:32 Oxygen Flow Rate 0 09/27/24 10:32 Pain Level 4 09/27/24 10:32 Medical Decision Making This dictation utilizes [id number] dictation software and may contain unedited grammatical errors. 73 year-old male presents to ED today by POV/ambulating with a chief complaint of fall 3 days ago with right sided lower back pain as well as right-sided abdominal pain in the setting of liver transplant patient. Quality described as right lumbar back pain paraspinal, right upper quadrant abdominal pain, questions whether this is muscular in nature-endorses muscle spasms, no radiation to fever, abdominal bruising, rigidity, urinary retention or bowel incontinence, numbness to genitals, inability to ambulate. Severity is described as moderate. Palliating factors include has taken some Tylenol but is careful with this medicine due to liver pretransplant. Provoking factors include nothing specific. Events leading up to the incident/Associated Symptoms: Patient has been wearing a back brace and applying heat and ice to the area. Patients' medical history: Sciatica. Family and social history: Noncontributory. Pertinent exam findings / vital signs include right lumbar paraspinal tenderness without crepitus or step-offs to vertebrae, right upper quadrant tenderness without ecchymosis or rigidity, negative Marquez sign, no flail segment or crepitus to rib cage, lungs CTA. Differential / pathologies of concern include fracture, pneumothorax, liver laceration, muscle strain. Diagnostic studies of: -CT abdomen/pelvis with contrast, CT lumbar spine without. -Severe chronic central canal stenosis, no vertebral fractures -No liver lacerations, as noted chronic unchanged hernias, no acute findings Interventions of: -Cyclobenzaprine tablets ago, PT referral. ED Course/Assessment/Plan: 73-year-old male suffered a fall while outside dealing with this no 3 days ago has right sided lower back and abdominal pain in setting of liver transplant, has no evidence of liver lack, no pneumothorax, no vertebral fracture, counseled on Tylenol and ibuprofen and heat and ice to the area but following up with physical therapy for relief of long-term likely chronic to some degree back pain. Patient verbalized understanding of the plan and return to ED criteria for any urinary retention, bowel incontinence, numbness to genitals or signs of neurovascular compromise. Findings not consistent with fracture, pneumothorax, liver laceration, spinal emergency. Disposition of Back Strain. Patient verbalized understanding of the plan and return to ED criteria and engaged in shared decision making. Medical Records Medical records reviewed: Yes I reviewed the patient's medical records. Imaging Data Radiologic Study: Attestation: I personally reviewed and interpreted this imaging study as follows: Imaging: CT Scan Radiologist's impression: EXAM: CT ABDOMEN PELVIS W CLINICAL HISTORY: RUQ tenderness, fall - liver tx pt. TECHNIQUE: Imaging Protocol: Axial computed tomography images with coronal and sagittal reformatted images were created and reviewed CONTRAST MATERIAL: Intravenous: Omnipaque-350 100cc Oral: None COMPARISON: CT CT CHEST/ABD/PEL WO from 03/20/2022 FINDINGS: VISUALIZED LUNG BASES: Chronic bilateral interstitial lung disease noted.. No pleural effusions. Visualized lower ribs appear intact. ABDOMEN: There is no ascites. LIVER: There is pneumobilia with air seen with in intrahepatic ducts as well as within the common hepatic duct. CBD is not dilated. GALLBLADDER/BILIARY: Gallbladder not seen and presumed to be surgically absent. CBD is not dilated. PANCREAS: No evidence of pancreatic mass nor dilatation of the pancreatic duct. There is a solitary tiny calcification in the lateral aspect of the pancreatic head again noted SPLEEN: Mild splenomegaly. No intrasplenic lesions. Splenic and portal veins are patent. ADRENALS: There are no significant adrenal masses. KIDNEYS:No cysts evident. No solid renal masses. No calculi nor hydronephrosis.. ABDOMINAL AORTA: Abdominal aorta is not enlarged. LYMPH NODES:There is no retroperitoneal nor paraaortic adenopathy. ABDOMINAL WALL: There are again noted bilateral fat only containing inguinal hernias. Right hernia again noted be larger than the left. The anterior right side of the urinary bladder is being pulled towards the internal inguinal ring by the hernia but has not entered the right inguinal canal. This finding is similar to previous of 2021 CT scan. GI: There is no evidence of bowel obstruction, free air, nor abscess. There is a metallic radiopaque foreign body in the proximal aspect of the stomach again noted. Possibly related to prior endoscopic procedure. Calculi are noted in the dependent aspect of the cecum below the ileocecal valve level. PELVIS: GI: Appendix is not seen and may be surgically absent.There is extensive sigmoid diverticulosis. No obvious acute diverticulitis. There is also diverticulosis of left side of the colon, also without diverticulitis. LYMPH NODES: There is no intrapelvic nor inguinal adenopathy. REPRODUCTIVE: Prostate size upper normal. Seminal vesicles unremarkable. URINARY BLADDER: No calculi nor obvious masses evident. The anterior right side of the urinary bladder is being pole towards the right inguinal hernia but not within the inguinal canal at this time. OSSEOUS: No fractures and no significant osseous lesions. Multilevel degenerative changes in the spine. Multilevel spinal canal stenosis. IMPRESSION: 1. No acute posttraumatic findings in the abdomen and pelvis 2. There is unchanged pneumobilia in this patient was apparently liver transplant patient. Gallbladder surgically absent. CBD is not dilated. No evidence of liver laceration 3. Mild splenomegaly. No splenic laceration. No perisplenic fluid. No ascites. 4. Bilateral inguinal hernias are again noted, right again larger than left. In addition, the anterior right side of the urinary bladder is being pulled towards the right internal inguinal ring but has not entered the inguinal canal. 5. Appendix not seen and presumed to be surgically absent. Chronic interstitial disease is seen in the visualized lung bases. There are no pleural effusions. No pericardial effusion. There is a metallic foreign body at the junction of the proximal and mid aspect of the stomach which is unchanged in appearance and location from prior CT scan of March 2022. No abnormal streaking around the stomach at this level. Correlation with any prior endoscopic procedure on the stomach recommended. Report called by myself to ER provider 09/27/2024 at 12:50 p.m. Radiologic Study #2: Attestation: I personally reviewed and interpreted this imaging study as follows: Imaging: CT Scan Radiologist's impression: EXAM: CT LUMBAR SPINE RECONS CLINICAL HISTORY: fall, low back pain. TECHNIQUE: Imaging Protocol: Axial computed tomography images with coronal and sagittal reformatted images were created and reviewed COMPARISON: CT CT ABDOMEN PELVIS W from 09/27/2024 FINDINGS: Bones: There are no fractures, listhesis, nor pars defects. There are no lytic osseous lesions evident. There is multilevel chronic degenerative disc disease. Multilevel bridging right-sided osteophytes. Sacroiliac joints appear unremarkable there is no evidence of sacral fracture. There is multilevel severe spinal canal stenosis. Also multilevel facet arthrosis. PARASPINAL SOFT TISSUES: Visualized paraspinal tissues appear unremarkable. No evidence of paraspinal hematoma. No retroperitoneal hematoma. IMPRESSION: 1. No acute fractures nor listhesis. 2. Multilevel severe spinal canal stenosis. Report called by myself to ER provider 09/27/2024 at 1:01 p.m. 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 CT at [facility] [place] Obstructive sleep apnea syndrome (Acute) C-PAP Obesity (Acute) Liver transplant status (Chronic) 2012 Impaired fasting glucose (Acute) Hypothyroidism (Acute) Gastroesophageal reflux disease (Acute) Diverticulosis of colon without diverticulitis (Acute) Cirrhosis of liver (Acute) Chest pain (Acute) 06/26- NEGATIVE MPI Bleeding esophageal varices (Acute) hemorrhage 07/24 Actinic keratosis (Acute) Surgical History LIVER TRANSPLANT (~2012) Colonoscopy - MAC 2005 2008 Appendectomy (~1991) Family History Mother Neoplasm Lung Father Aneurysm Social History (Updated 07/12/24 @ 12:47 by Paulina Jones) Smoking/Tobacco Use Status: Never Second Hand Exposure: Yes Smoking risk assessment performed?: Yes Alcohol Intake: former Drug use: Never Substance use type: does not use Adopted: No Caregiver/Support person: No Household members: significant other Housing: house Number of Children: 3 Communication Needs: None Education Level: college Do you need help understanding health information?: Never current occupation: Retired Sexually active: No Do you think of yourself as: straight/heterosexual Current gender identity: male What is your relationship status?: living with partner How often do you talk on the phone with friends or family?: decline to answer How often do you get together with friends or relatives?: decline to answer How often do you attend rastafarian or mu-ism services?: decline to answer Do you belong to any clubs or organized social groups?: no Panel score (0-1 are the most socially isolated patients): 1 What type of physical activity do you participate in: other Details: Stretching exercises Frequency: daily Gena/Latter-Day: Non yarsani Special gena needs: No Seatbelt use: always Helmet use: No Drive intox or ride w/intox limousine driver: No Firearms in home: Yes Firearms unloaded and locked: Yes Do you feel safe at home: Yes Do you feel safe in your relationship?: Yes Victim of physical abuse: No Victim of emotional abuse: No Victim of sexual abuse: No Would you like helpful sources: No
--- NOTE | 2024-09-27 11:00 | DI.CT_ITS ---
Exam(s) CT ABDOMEN PELVIS W EXAM: CT ABDOMEN PELVIS W CLINICAL HISTORY: RUQ tenderness, fall - liver tx pt. TECHNIQUE: Imaging Protocol: Axial computed tomography images with coronal and sagittal reformatted images were created and reviewed CONTRAST MATERIAL: Intravenous: Omnipaque-350 100cc Oral: None COMPARISON: CT CT CHEST/ABD/PEL WO from 03/20/2022 FINDINGS: VISUALIZED LUNG BASES: Chronic bilateral interstitial lung disease noted.. No pleural effusions. Vi sualized lower ribs appear intact. ABDOMEN: There is no ascites. LIVER: There is pneumobilia with air seen with in intrahepatic ducts as well as within the common hep atic duct. CBD is not dilated. GALLBLADDER/BILIARY: Gallbladder not seen and presumed to be surgically absent. CBD is not dilated. PANCREAS: No evidence of pancreatic mass nor dilatation of the pancreatic duct. There is a solitary tiny calcification in the lateral aspect of the pancreatic head again noted SPLEEN: Mild splenomegaly. No intrasplenic lesions. Splenic and portal veins are patent. ADRENALS: There are no significant adrenal masses. KIDNEYS:No cysts evident. No solid renal masses. No calculi nor hydronephrosis.. ABDOMINAL AORTA: Abdominal aorta is not enlarged. LYMPH NODES:There is no retroperitoneal nor paraaortic adenopathy. ABDOMINAL WALL: There are again noted bilateral fat only containing inguinal hernias. Right hernia a gain noted be larger than the left. The anterior right side of the urinary bladder is being pulled t owards the internal inguinal ring by the hernia but has not entered the right inguinal canal. This f inding is similar to previous of 2021 CT scan. GI: There is no evidence of bowel obstruction, free air, nor abscess. There is a metallic radiopaque foreign body in the proximal aspect of the stomach again noted. Possibly related to prior endoscopic procedure. Calculi are noted in the dependent aspect of the cecum below the ileocecal valve level. PELVIS: GI: Appendix is not seen and may be surgically absent.There is extensive sigmoid diverticulosis. No obvious acute diverticulitis. There is also diverticulosis of left side of the colon, also without d iverticulitis. LYMPH NODES: There is no intrapelvic nor inguinal adenopathy. REPRODUCTIVE: Prostate size upper normal. Seminal vesicles unremarkable. URINARY BLADDER: No calculi nor obvious masses evident. The anterior right side of the urinary bladd er is being pole towards the right inguinal hernia but not within the inguinal canal at this time. OSSEOUS: No fractures and no significant osseous lesions. Multilevel degenerative changes in the spine. Multilevel spinal canal stenosis. IMPRESSION: 1. No acute posttraumatic findings in the abdomen and pelvis 2. There is unchanged pneumobilia in this patient was apparently liver transplant patient. Gallbladd er surgically absent. CBD is not dilated. No evidence of liver laceration 3. Mild splenomegaly. No splenic laceration. No perisplenic fluid. No ascites. 4. Bilateral inguinal hernias are again noted, right again larger than left. In addition, the anteri or right side of the urinary bladder is being pulled towards the right internal inguinal ring but has not entered the inguinal canal. 5. Appendix not seen and presumed to be surgically absent. Chronic interstitial disease is seen in the visualized lung bases. There are no pleural effusions. No pericardial effusion. There is a metallic foreign body at the junction of the proximal and mid aspect of the stomach which is unchanged in appearance and location from prior CT scan of March 2022. No abnormal streaking salvador und the stomach at this level. Correlation with any prior endoscopic procedure on the stomach recomm ended. Report called by myself to ER provider 09/27/2024 at 12:50 p.m. RADIATION DOSE DELIVERED: 429.07mGy.cm Total DLP DATA REPOSITORY: All CT scans at this facility are submitted to the National Radiology Data Registry (NRDR) Dose Index Registry (DIR) with the [employer] (A[employer]). RADIATION OPTIMIZATION: All CT scans at this facility use at least one of these dose optimization te chniques: automated exposure control; mA and/or kV adjustment per patient size (includes targeted exa ms where dose is matched to clinical indication); or iterative reconstruction.
--- NOTE | 2024-09-27 11:06 | DI.CT_ITS ---
Exam(s) CT LUMBAR SPINE RECONS EXAM: CT LUMBAR SPINE RECONS CLINICAL HISTORY: fall, low back pain. TECHNIQUE: Imaging Protocol: Axial computed tomography images with coronal and sagittal reformatted images were created and reviewed COMPARISON: CT CT ABDOMEN PELVIS W from 09/27/2024 FINDINGS: Bones: There are no fractures, listhesis, nor pars defects. There are no lytic osseous lesions evide nt. There is multilevel chronic degenerative disc disease. Multilevel bridging right-sided osteophytes. Sacroiliac joints appear unremarkable there is no evidence of sacral fracture. There is multilevel severe spinal canal stenosis. Also multilevel facet arthrosis. PARASPINAL SOFT TISSUES: Visualized paraspinal tissues appear unremarkable. No evidence of paraspinal hematoma. No retroperitoneal hematoma. IMPRESSION: 1. No acute fractures nor listhesis. 2. Multilevel severe spinal canal stenosis. Report called by myself to ER provider 09/27/2024 at 1:01 p.m. RADIATION DOSE DELIVERED: 429.07mGy.cm Total DLP DATA REPOSITORY: All CT scans at this facility are submitted to the National Radiology Data Registry (NRDR) Dose Index Registry (DIR) with the [employer] ([employer]). RADIATION OPTIMIZATION: All CT scans at this facility use at least one of these dose optimization te chniques: automated exposure control; mA and/or kV adjustment per patient size (includes targeted exa ms where dose is matched to clinical indication); or iterative reconstruction.
[2024-09-27 11:32] LABS: Abs Immature Grans 0.03 10^3/uL (0.0-0.06); Absolute Basophil Count 0.05 10^3/uL (0.0-0.2); Absolute Eosinophil Count 0.06 10^3/uL (0.0-0.7); Absolute Lymphocyte Count 1.16 10^3/uL (1.2-3.4); Absolute Monocyte Count 0.64 10^3/uL (0.1-0.8); Absolute Neutrophil Count 5.97 10^3/uL (1.2-6.7); Basophils % 0.6 %; Eosinophils % 0.8 %; HGB 15.2 g/dL (13.5-17.5); Immature Grans % 0.4 %; Lymphocytes % 14.7 %; MCH 27.7 pg (27.0-33.0); MCV 84 fL (80-95); MPV 9.7 fL (8.0-11.0); Monocytes % 8.1 %; Neutrophils % 75.4 %; Platelet Count 157 10^3/uL (130-400); RBC 5.48 10^6/uL (4.36-5.78); RDW 14.5 % (11.8-14.1); RDW-SD 43.8 fL; WBC 7.91 10^3/uL (4.4-10.8)
[2024-09-27 11:48] LABS: ALT 62 U/L (16-63); AST 31 U/L (15-37); Albumin 4.2 g/dL (3.4-5.0); Alkaline Phosphatase 56 U/L (46-116); Anion Gap 5.2 mmol/L (3-11); BUN 16 mg/dL (7-18); Bilirubin, Direct 0.2 mg/dL (0.0-0.2); Bilirubin, Total 0.86 mg/dL (0.2-1.0); CO2 34.8 mmol/L (21.0-32.0); CREATININE 1.2 mg/dL (0.70-1.30); Calcium 9.5 mg/dL (8.5-10.1); Chloride 101 mmol/L (98-107); Estimated GFR 63.07 (mL/min/1.73m2); Glucose 120 mg/dL (74-106); Lipase 17 U/L (<78); Sodium 141 mmol/L (136-145); Total Protein 8.4 g/dL (6.4-8.2)
[2024-09-27] MEDS: Omnipaque 350 MG/ML 100 ML BTL IJ (12:13)
[2024-09-27] MEDS: Normal Saline - Diluent 50 ML VIAL IJ (12:13)
[2024-09-27 13:06] LABS: Bilirubin Negative (Negative); Blood Trace-lysed (Negative); Clarity Clear (Clear); Glucose Negative (Negative); Ketones Negative (Negative); Leukocyte Esterase Negative (Negative); Nitrite Negative (Negative); Specific Gravity 1.015 (1.005-1.025); Urobilinogen 0.2 mg/dL (Up to 0.2); pH 5.5 (5-8)
[2024-09-27 13:18] LABS: Bacteria Negative HPF (Negative); C & S Indicated? No; Casts Negative LPF (Negative); Crystals Negative HPF (Negative); Epithelial Cells Rare HPF (Negative); Mucus Negative (Negative); WBC Negative HPF (0-5)
[2024-09-27 14:00] VITALS: BP 150/61; PULSE 63; RESP 16; O2SAT 98
[2024-09-27] MEDS: Cyclobenzaprine 10 MG TAB, 3 TABS/BTL PO (14:17)
== END 2024-09-27 14:16 | disposition home or self-care (01) ==
PROVIDERS: Emergency Provider Physician Assistant; PCP Family Medicine
DX: S39.012A Strain of muscle, fascia and tendon of lower back, initial encounter (principal); X58.XXXA Exposure to other specified factors, initial encounter
CPT/HCPCS: 36415; 80048; 80053; 80076; 83690; 99285; 74177; 80195; 81003; 81015; 83735; 84100; 85025; 99284; J3490

== ENCOUNTER 2024-12-29 02:00 | Outpatient (CLI) | payer MEDICARE, BC, SELFPAY ==
[2024-12-29 07:53] LABS: Abs Immature Grans 0.01 10^3/uL (0.0-0.06); Absolute Basophil Count 0.04 10^3/uL (0.0-0.2); Absolute Eosinophil Count 0.18 10^3/uL (0.0-0.7); Absolute Lymphocyte Count 1.97 10^3/uL (1.2-3.4); Absolute Monocyte Count 0.59 10^3/uL (0.1-0.8); Absolute Neutrophil Count 2.84 10^3/uL (1.2-6.7); Basophils % 0.7 %; Eosinophils % 3.2 %; HCT 42.8 % (40.0-50.0); HGB 14.3 g/dL (13.5-17.5); Immature Grans % 0.2 %; MCH 27.6 pg (27.0-33.0); MCHC 33.4 % (32.0-36.0); MCV 83 fL (80-95); MPV 9.3 fL (8.0-11.0); Monocytes % 10.5 %; Neutrophils % 50.4 %; Platelet Count 151 10^3/uL (130-400); RBC 5.18 10^6/uL (4.36-5.78); RDW 14.6 % (11.8-14.1); RDW-SD 42.7 fL; WBC 5.63 10^3/uL (4.4-10.8)
[2024-12-29 08:17] LABS: Hemoglobin A1C 5.6 % (<5.7)
[2024-12-29 08:36] LABS: ALT 62 U/L (16-63); AST 40 U/L (15-37); Alkaline Phosphatase 53 U/L (46-116); Anion Gap 6.2 mmol/L (3-11); BUN 17 mg/dL (7-18); Bilirubin, Direct 0.2 mg/dL (0.0-0.2); Bilirubin, Total 0.7 mg/dL (0.2-1.0); CO2 32.8 mmol/L (21.0-32.0); CREATININE 1.3 mg/dL (0.70-1.30); Calcium 9.2 mg/dL (8.5-10.1); Chloride 103 mmol/L (98-107); Estimated GFR 56.93 (mL/min/1.73m2); Glucose 114 mg/dL (74-106); Magnesium 2.3 mg/dL (1.8-2.4); PHOSPHORUS 3.6 mg/dL (2.6-4.7); Potassium 3.6 mmol/L (3.5-5.1); Sodium 142 mmol/L (136-145); Total Protein 7.7 g/dL (6.4-8.2)
[2024-12-29 08:59] LABS: Calculated LDL 74 mg/dL (<100); Cholesterol 152 mg/dL (<200); HDL Cholesterol 47 mg/dL (>or=40); Triglyceride 155 mg/dL (<150)
[2024-12-30 11:33] LABS: Sirolimus 4.8 ng/mL (See Note)
== END 2024-12-29 02:01 | disposition home or self-care (01) ==
PROVIDERS: PCP Family Medicine; Visit Provider Internal Medicine
DX: K75.81 Nonalcoholic steatohepatitis (NASH) (principal); R73.09 Other abnormal glucose; E78.5 Hyperlipidemia, unspecified; Z79.899 Other long term (current) drug therapy; Z94.4 Liver transplant status; Z48.23 Encounter for aftercare following liver transplant
CPT/HCPCS: 36415; 80053; 80061; 80195; 82248; 83036; 83735; 84100; 85025

== ENCOUNTER 2025-04-02 04:19 | Outpatient (CLI) | payer MEDICARE, BC, SELFPAY ==
[2025-04-02 07:24] LABS: Abs Immature Grans 0.02 10^3/uL (0.0-0.06); HCT 39.6 % (40.0-50.0); HGB 13.0 g/dL (13.5-17.5); Immature Grans % 0.3 %; MCH 26.9 pg (27.0-33.0); MCHC 32.8 % (32.0-36.0); MCV 82 fL (80-95); MPV 9.7 fL (8.0-11.0); Platelet Count 132 10^3/uL (130-400); RBC 4.83 10^6/uL (4.36-5.78); RDW 14.4 % (11.8-14.1); RDW-SD 42.2 fL; WBC 6.46 10^3/uL (4.4-10.8)
[2025-04-02 07:47] LABS: ALT 57 U/L (16-63); AST 34 U/L (15-37); Albumin 3.9 g/dL (3.4-5.0); Alkaline Phosphatase 49 U/L (46-116); Anion Gap 5.7 mmol/L (3-11); BUN 19 mg/dL (7-18); Bilirubin, Direct 0.1 mg/dL (0.0-0.2); Bilirubin, Total 0.7 mg/dL (0.2-1.0); CO2 33.3 mmol/L (21.0-32.0); Calcium 9.2 mg/dL (8.5-10.1); Chloride 102 mmol/L (98-107); Estimated GFR 69.57 (mL/min/1.73m2); Glucose 121 mg/dL (74-106); Magnesium 2.3 mg/dL (1.8-2.4); Potassium 3.4 mmol/L (3.5-5.1); Sodium 141 mmol/L (136-145); Total Protein 7.7 g/dL (6.4-8.2)
[2025-04-02 07:52] LABS: TSH (W/Ref FT4) 0.54 uIU/mL (0.36-3.74)
== END 2025-04-02 04:20 | disposition home or self-care (01) ==
LOC: LBO 04:19
PROVIDERS: PCP Family Medicine; Visit Provider Transplant Surgery
DX: E03.9 Hypothyroidism, unspecified (principal); Z79.60 Long term (current) use of unspecified immunomodulators and immunosuppressants; Z94.4 Liver transplant status; Z48.23 Encounter for aftercare following liver transplant
CPT/HCPCS: 36415; 80053; 80195; 82248; 83735; 84100; 84443; 85025

== ENCOUNTER 2025-07-02 02:06 | Outpatient (CLI) | payer MEDICARE, BC, SELFPAY ==
[2025-07-02 07:41] LABS: Abs Immature Grans 0.01 10^3/uL (0.0-0.06); HCT 40.3 % (40.0-50.0); HGB 13.1 g/dL (13.5-17.5); Immature Grans % 0.2 %; MCH 26.1 pg (27.0-33.0); MCHC 32.5 % (32.0-36.0); MCV 80 fL (80-95); MPV 9.3 fL (8.0-11.0); Platelet Count 143 10^3/uL (130-400); RBC 5.02 10^6/uL (4.36-5.78); RDW 14.7 % (11.8-14.1); RDW-SD 42.9 fL; WBC 5.57 10^3/uL (4.4-10.8)
[2025-07-02 08:11] LABS: Magnesium 2.0 mg/dL (1.6-2.6)
[2025-07-02 08:13] LABS: ALT 43 U/L (10-49); AST 36 U/L (<34); Albumin 4.6 g/dL (3.4-5.0); Alkaline Phosphatase 52 U/L (46-116); Anion Gap 8.3 mmol/L (3-11); BUN 20 mg/dL (9-23); Bilirubin, Direct 0.2 mg/dL (<=0.3); Bilirubin, Total 0.60 mg/dL (0.2-1.2); CO2 31.7 mmol/L (20.0-31.0); Calcium 9.1 mg/dL (8.3-10.6); Chloride 101 mmol/L (98-107); Glucose 104 mg/dL (74-106); Potassium 3.7 mmol/L (3.5-5.1); Sodium 141 mmol/L (136-145); Total Protein 7.5 g/dL (5.7-8.2)
== END 2025-07-02 02:07 | disposition home or self-care (01) ==
PROVIDERS: PCP Family Medicine; Visit Provider Transplant Surgery
DX: Z79.60 Long term (current) use of unspecified immunomodulators and immunosuppressants (principal); Z94.4 Liver transplant status
CPT/HCPCS: 36415; 80053; 80195; 80197; 82248; 83735; 84100; 85025